=== PATIENT | female | born 1955 | race Caucasian/White ===

== ENCOUNTER 2021-02-14 10:41 | Inpatient (IN) ==
[~2021-02-14 10:41] MED LIST: KETAMINE HCL INJ 50 MG/ML 10 ML VIAL IV ONE; ROCURONIUM BROMIDE 10 MG/ML 5 ML VIAL IV ONE
[2021-02-14] MEDS ORDERED: RAPID SEQUENCE INDUCTION BAG ONE (11:03)
--- NOTE | 2021-02-14 11:11 | Emergency Department Note ---
Impression & Plan Pneumonia due to 2019 novel coronavirus, Pulmonary embolism, Respiratory failure, Acute alteration in mental status, Acute CVA (cerebrovascular accident), Acute non-ST elevation myocardial infarction (NSTEMI) ED Provider Note NAME: MAMADOU ROSE AGE: 65 SEX: F : 1955 ARRIVES VIA: Ambulance INFORMANT: Patient, EMS ED PROVIDER(S): Scar Allen DO CHIEF COMPLAINT: Shortness of breath HPI: The patient is a 65-year-old female who presented to emergency department via EMS for an evaluation of shortness of breath. The patient resides currently at home with other people that are positive for COVID-19. The patient was noted to have very low oxygen saturation prior to arrival. At this time the patient complains of a cough as well as shortness of breath but she is very obtunded and confused. She does not appear to be acting appropriately or answering questions appropriately. She is denying any chest pain or leg swelling. It sounds though her symptoms have been worsening over the course the last 2 weeks although it is difficult to ascertain this for sure. History was limited secondary to the patient's confusion. Additional history was obtained from the patient's son and [id number] when they arrived at the emergency department. They state that the patient herself did have Covid approximately 4 weeks ago but she responded well and recovered from this. She is not vaccinated. The patient did have confusion over the last few days. She did not go to work last evening and they are unsure why. This is what prompted them to check on her. She has been confused and lost her way at work a couple days ago. A coworker for the patient told the son this. She had been complaining of joint aches however. She does have a history of pneumonia as a child. She has no tobacco or alcohol history. ROS: See above HPI for pertinent positives & negatives. A total of 10 systems reviewed and were otherwise negative. PAST MEDICAL HISTORY: See Below PAST SURGICAL HISTORY: See Below FAMILY HISTORY: See Below SOCIAL HISTORY: See Below HOME MEDICATIONS: See Below ALLERGIES: See Below VITALS: See Below PHYSICAL EXAMINATION: GENERAL: The patient is awake and looking around the room. She answers questions slowly and sometimes inappropriately. EYES: The conjunctivae are clear. The pupils are round and reactive. EARS, NOSE, MOUTH AND THROAT: The nose is without any evidence of any deformity. NECK: The neck is nontender and supple. RESPIRATORY: Severely diminished breath sounds are noted throughout. There is significant conversational dyspnea and tachypnea. CARDIOVASCULAR: Tachycardic rate with regular rhythm was noted. There is no definite murmur. GASTROINTESTINAL: The abdomen is soft. Abdomen is nontender. MUSCULOSKELETAL/EXTREMITIES: There is no evidence of gross deformity full range of motion is noted in the hips and shoulders. SKIN: Skin was cool and mottled. Pedal edema was noted bilaterally. NEUROLOGIC: Patient is awake and oriented to person place but not time or situation. MEDICAL DECISION MAKING: The patient is a 65-year-old female who presented to emergency department for an evaluation of difficulty breathing. The patient was obtunded and appeared at times confused. This would be a huge change in the patient's mental status compared to baseline. The patient was stabilized but required endotracheal ovation. Her oxygen saturation was very low and her respiratory status continued to worsen. The patient was found to have an abnormal EKG which could be consistent with an acute ischemic change with a bumped troponin. I discussed her case with interventional cardiology. At this time I feel the patient's cardiac findings could be secondary to her underlying pulmonary status. Ultimately she was placed on heparin. The patient was found to have bilateral pulmonary embolism. She was covered with antibiotics but was found to have a positive Covid swab. I discussed the patient's laboratory and radiographic studies with her family members. I also discussed her case with the on-call [facility] hospitalist group. I also consulted neurology to determine the proper timing for anticoagulation. At this time the patient requires anticoagulation because of the pulmonary embolism and her clot burden. She was found to have signs of right heart strain. She had an echocardiogram. The patient was also discussed with the [facility]. Triage Nursing notes reviewed. Prior medical records reviewed Vital Signs: reviewed and remarkable for hypoxia. Differential diagnosis: Reactive airway disease, pneumonia, pneumothorax, COPD, CHF, infections, cardiac ischemia, pulmonary embolism, musculoskeletal, gastrointestinal, as well as other pathologies. ER treatment provided: See below Diagnostics interpreted by me: ECG: EKG was obtained in the emergency department. My interpretation is sinus tachycardia 104 bpm. There was no ectopy. Significant high lateral and inferior ST segment abnormalities were noted. There was anterior T wave inversions noted. Significant ischemic changes were noted. No previous tracing was available. Cardiac Monitoring: An order was placed for continuous cardiac monitoring. The monitor shows a rate of 93 bpm with sinus rhythm. Laboratory studies: As stated above and show below. Imaging studies: See below Consultation(s): I discussed this case with Dr. Storey who is on for interventional cardiology. I discussed this case with Dr. Molina. He was available for consultation for neurology. I discussed the patient's radiographic studies with him. He does recommend further neuroimaging including angiography to evaluate the patient's intracranial and carotid vasculature. At this time if anticoagulation is required it would be advisable however following up with repeat CAT scans as indicated to ensure there is no hemorrhagic transformation. I discussed this case with Dr. Luna who is on-call for the [facility] hospitalist group. They will evaluate the patient in the emergency department. I discussed this case with Dr. Cabrera who is on-call for the [facility]. ED COURSE: Procedures: Endotracheal Intubation Indication respiratory failure. The patient was on 100% oxygen via NRB prior to the procedure. Suction, airway equipment, RSI drugs, respiratory equipment, and appropriate personnel were prepared prior to the initiation of the procedure. A time out was taken. Induction was performed with ketamine and rocuronium After observing the clinical benefit of the medications, the airway was easily visualized utilizing a glide scope. A 7.5 size ETT tube was placed atraumatically to 24 cm using standard technique. The cuff inflated without signs of malfunction. There were bilateral breath sounds, positive colormetric change, no gastric sounds, a good capnography waveform, and post procedure pulse oximetry was 92%. Post intubation sedation and paralysis was administered using propofol. There were no complications. Critical Care: I have personally spent greater than 75 minutes of critical care time in the direct management of this patient. This includes bedside care, interpretation of diagnostic studies, and testing, discussion with consultants, patient, and family members, and other required patient management activities. This 75 minutes is in excess of all separately billable procedures. Past Med/Surg History Medical History History of pneumonia Social History Smoking Status: Never smoker Hx Alcohol Use: No Hx Substance Use: No Preferred Language: Chinese Communication Ability: Effective Supervisor Fusing Room Required: No Beliefs That Will Affect Care: None Current Living Situation: Spouse Other Information That Helps Us Care for You: No Feels Safe at Home: Yes Safety Concerns: Feels Safe At This Time Assistive Devices: None Allergies Allergies Allergy/AdvReac Type Severity Reaction Status Date / Time No Known Allergies Allergy Verified 02/14/21 12:55 Home Meds Home Medications Medication Instructions Recorded Confirmed No Known Home Medications 02/14/21 02/14/21 Results & Data (ED) Vital Signs Vital Signs - 24 hr 02/14/21 10:30 02/14/21 10:55 02/14/21 11:00 Temperature 36.8 C Temperature Source Oral Pulse Rate 88 105 H 104 H Pulse Rate from SpO2 Sensor 105 H 104 H Pulse Rhythm Regular Respiratory Rate 44 H 30 H 34 H Respiratory Effort / Characteristics Short of Breath Labored Short of Breath Respiratory Depth Shallow Respiratory Pattern Blood Pressure 154/76 H Blood Pressure Mean 102 Blood Pressure Position Semi-fowlers Pulse Oximetry 77 L 90 92 Oxygen Delivery Method Room Air Oxymask Oxygen Flow Rate 8 Fraction of Inspired Oxygen Sepsis Recent Fever Within 48 Hours Yes Sepsis New/Unexplained Change in Mental Status Yes Sepsis Action Taken by Nursing Physician Notified Oxygen Flow Rate - Titration Pulse Oximetry Post Tiitration 02/14/21 11:01 02/14/21 11:10 02/14/21 11:20 Temperature Temperature Source Pulse Rate 104 H 101 H Pulse Rate from SpO2 Sensor 104 H 102 H Pulse Rhythm Respiratory Rate 43 H 17 Respiratory Effort / Characteristics Short of Breath Respiratory Depth Shallow Respiratory Pattern Regular Blood Pressure Blood Pressure Mean Blood Pressure Position Pulse Oximetry 78 L 91 90 Oxygen Delivery Method Oxymask Oxygen Flow Rate 0 Fraction of Inspired Oxygen Sepsis Recent Fever Within 48 Hours Sepsis New/Unexplained Change in Mental Status Sepsis Action Taken by Nursing Oxygen Flow Rate - Titration 8 Pulse Oximetry Post Tiitration 92 02/14/21 11:30 02/14/21 11:35 02/14/21 11:40 Temperature Temperature Source Pulse Rate 103 H 99 H 103 H Pulse Rate from SpO2 Sensor 103 H 99 H 103 H Pulse Rhythm Respiratory Rate 24 27 H 27 H Respiratory Effort / Characteristics Labored Short of Breath Respiratory Depth Respiratory Pattern Blood Pressure 139/72 135/101 H 167/100 H Blood Pressure Mean 94 112 122 Blood Pressure Position Pulse Oximetry 91 94 93 Oxygen Delivery Method Mechanical Vent Oxygen Flow Rate Fraction of Inspired Oxygen Sepsis Recent Fever Within 48 Hours Sepsis New/Unexplained Change in Mental Status Sepsis Action Taken by Nursing Oxygen Flow Rate - Titration Pulse Oximetry Post Tiitration 02/14/21 11:45 02/14/21 11:49 02/14/21 11:50 Temperature Temperature Source Pulse Rate 111 H 114 H 114 H Pulse Rate from SpO2 Sensor 111 H 110 H Pulse Rhythm Respiratory Rate 20 16 25 H Respiratory Effort / Characteristics Respiratory Depth Respiratory Pattern Blood Pressure 192/119 H 186/107 H Blood Pressure Mean 143 133 Blood Pressure Position Pulse Oximetry 85 L 89 L 89 L Oxygen Delivery Method Oxygen Flow Rate Fraction of Inspired Oxygen 100 Sepsis Recent Fever Within 48 Hours Sepsis New/Unexplained Change in Mental Status Sepsis Action Taken by Nursing Oxygen Flow Rate - Titration Pulse Oximetry Post Tiitration 02/14/21 11:55 02/14/21 12:00 02/14/21 12:28 Temperature Temperature Source Pulse Rate 110 H 107 H 119 H Pulse Rate from SpO2 Sensor 111 H 112 H Pulse Rhythm Respiratory Rate 16 20 20 Respiratory Effort / Characteristics Mechanically Ventilated Respiratory Depth Respiratory Pattern Blood Pressure 178/105 H 161/101 H 147/92 H Blood Pressure Mean 129 121 110 Blood Pressure Position Pulse Oximetry 88 L 88 L Oxygen Delivery Method Oxygen Flow Rate Fraction of Inspired Oxygen Sepsis Recent Fever Within 48 Hours Sepsis New/Unexplained Change in Mental Status Sepsis Action Taken by Nursing Oxygen Flow Rate - Titration Pulse Oximetry Post Tiitration 02/14/21 12:30 02/14/21 12:35 02/14/21 12:40 Temperature Temperature Source Pulse Rate 113 H 106 H 102 H Pulse Rate from SpO2 Sensor 106 H 104 H Pulse Rhythm Respiratory Rate 16 18 18 Respiratory Effort / Characteristics Mechanically Ventilated Respiratory Depth Respiratory Pattern Blood Pressure 140/88 109/80 119/79 Blood Pressure Mean 105 89 92 Blood Pressure Position Pulse Oximetry 92 90 Oxygen Delivery Method Oxygen Flow Rate Fraction of Inspired Oxygen Sepsis Recent Fever Within 48 Hours Sepsis New/Unexplained Change in Mental Status Sepsis Action Taken by Nursing Oxygen Flow Rate - Titration Pulse Oximetry Post Tiitration 02/14/21 12:45 02/14/21 12:55 02/14/21 13:00 Temperature Temperature Source Pulse Rate 105 H 108 H 109 H Pulse Rate from SpO2 Sensor 105 H 108 H 109 H Pulse Rhythm Respiratory Rate 18 18 18 Respiratory Effort / Characteristics Mechanically Ventilated Respiratory Depth Respiratory Pattern Blood Pressure 126/48 L 120/93 141/97 H Blood Pressure Mean 74 102 111 Blood Pressure Position Pulse Oximetry 89 L 93 94 Oxygen Delivery Method Oxygen Flow Rate Fraction of Inspired Oxygen Sepsis Recent Fever Within 48 Hours Sepsis New/Unexplained Change in Mental Status Sepsis Action Taken by Nursing Oxygen Flow Rate - Titration Pulse Oximetry Post Tiitration 02/14/21 13:05 02/14/21 13:10 02/14/21 13:15 Temperature Temperature Source Pulse Rate 109 H 108 H 110 H Pulse Rate from SpO2 Sensor 109 H 108 H 110 H Pulse Rhythm Respiratory Rate 18 18 18 Respiratory Effort / Characteristics Respiratory Depth Respiratory Pattern Blood Pressure 136/89 139/86 163/87 H Blood Pressure Mean 104 103 112 Blood Pressure Position Pulse Oximetry 94 94 95 Oxygen Delivery Method Oxygen Flow Rate Fraction of Inspired Oxygen Sepsis Recent Fever Within 48 Hours Sepsis New/Unexplained Change in Mental Status Sepsis Action Taken by Nursing Oxygen Flow Rate - Titration Pulse Oximetry Post Tiitration 02/14/21 13:20 02/14/21 13:25 02/14/21 13:30 Temperature Temperature Source Pulse Rate 113 H 112 H 108 H Pulse Rate from SpO2 Sensor 113 H 112 H 108 H Pulse Rhythm Respiratory Rate 26 H 14 18 Respiratory Effort / Characteristics Mechanically Ventilated Respiratory Depth Respiratory Pattern Blood Pressure 154/99 H 141/89 H 120/79 Blood Pressure Mean 117 106 92 Blood Pressure Position Pulse Oximetry 94 94 94 Oxygen Delivery Method Oxygen Flow Rate Fraction of Inspired Oxygen Sepsis Recent Fever Within 48 Hours Sepsis New/Unexplained Change in Mental Status Sepsis Action Taken by Nursing Oxygen Flow Rate - Titration Pulse Oximetry Post Tiitration 02/14/21 13:32 02/14/21 13:35 02/14/21 13:40 Temperature Temperature Source Pulse Rate 105 H 110 H 110 H Pulse Rate from SpO2 Sensor 109 H 111 H Pulse Rhythm Respiratory Rate 18 15 18 Respiratory Effort / Characteristics Respiratory Depth Respiratory Pattern Blood Pressure 125/84 Blood Pressure Mean 97 Blood Pressure Position Pulse Oximetry 93 93 94 Oxygen Delivery Method Oxygen Flow Rate Fraction of Inspired Oxygen 100 Sepsis Recent Fever Within 48 Hours Sepsis New/Unexplained Change in Mental Status Sepsis Action Taken by Nursing Oxygen Flow Rate - Titration Pulse Oximetry Post Tiitration 02/14/21 13:45 02/14/21 13:50 02/14/21 13:55 Temperature Temperature Source Pulse Rate 110 H 112 H 113 H Pulse Rate from SpO2 Sensor 110 H 112 H 113 H Pulse Rhythm Respiratory Rate 18 18 18 Respiratory Effort / Characteristics Respiratory Depth Respiratory Pattern Blood Pressure 117/84 127/86 124/86 Blood Pressure Mean 95 99 98 Blood Pressure Position Pulse Oximetry 94 94 94 Oxygen Delivery Method Oxygen Flow Rate Fraction of Inspired Oxygen Sepsis Recent Fever Within 48 Hours Sepsis New/Unexplained Change in Mental Status Sepsis Action Taken by Nursing Oxygen Flow Rate - Titration Pulse Oximetry Post Tiitration 02/14/21 14:00 Temperature Temperature Source Pulse Rate 114 H Pulse Rate from SpO2 Sensor 114 H Pulse Rhythm Respiratory Rate 18 Respiratory Effort / Characteristics Respiratory Depth Respiratory Pattern Blood Pressure 122/88 Blood Pressure Mean 99 Blood Pressure Position Pulse Oximetry 94 Oxygen Delivery Method Oxygen Flow Rate Fraction of Inspired Oxygen Sepsis Recent Fever Within 48 Hours Sepsis New/Unexplained Change in Mental Status Sepsis Action Taken by Nursing Oxygen Flow Rate - Titration Pulse Oximetry Post Tiitration Home Medications Current Medication List: was personally reviewed by me Laboratory Data Attestation: I reviewed the patient's lab results. Result diagrams: 02/14/21 11:22 02/14/21 17:06 Lab Results 02/14/21 02/14/21 02/14/21 Range/Units 10:55 11:22 11:22 WBC 15.88 H (4.8-10.8) K/uL RBC 4.94 (4.2-5.4) M/uL Hgb 14.5 (12.0-16.0) g/dL Hct 42.7 (37-47) % MCV 86.4 (80-100) fL MCH 29.4 (25-34) pg MCHC 34.0 (32-36) g/dL RDW Std Deviation 40.9 (36.4-46.3) fL RDW Coeff of Ayde 12.8 (11.5-14.5) % Plt Count 291 (130-400) K/uL MPV 10.6 H (7.4-10.4) fL Immature Gran % (Auto) 0.9 % Neut % (Auto) 79.4 % Lymph % (Auto) 11.3 % [place] % (Auto) 8.2 % Eos % (Auto) 0.0 % Baso % (Auto) 0.2 % Neut # (Auto) 12.61 H (1.4-6.5) K/uL Lymph # (Auto) 1.80 (1.2-3.4) K/uL [place] # (Auto) 1.30 H (0.11-0.59) K/uL Eos # (Auto) 0.00 (0-0.5) K/uL Baso # (Auto) 0.03 (0-0.2) K/uL Immature Gran # (Auto) 0.14 H (0.00-0.02) K/uL PT 13.0 H (9.0-12.0) Seconds INR 1.3 H (0.9-1.1) APTT 29.8 (21.0-31.0) Seconds PTT Ratio 1.1 D-Dimer 23788 H* (0-500) ug/L FEU VBG pH (7.36-7.41) VBG pCO2 (38-50) mmHg VBG pO2 mmHg VBG HCO3 mmol/L VBG O2 Saturation % VBG Base Excess mEq/L Barometric Pressure mm/Hg Sodium (136-145) mmol/L Potassium (3.5-5.1) mmol/L Chloride (98-107) mmol/L Carbon Dioxide (21-32) mmol/L Anion Gap (3-11) BUN (7-18) mg/dl Creatinine (0.6-1.2) mg/dl Est Cr Clr Drug Dosing Est GFR ( Amer) ml/min Est GFR (Non-Af Amer) ml/min BUN/Creatinine Ratio (10-20) Glucose (70-99) mg/dl Lactate (0.4-2.0) mmol/L Calcium (8.5-10.1) mg/dl Magnesium (1.8-2.4) mg/dl Total Bilirubin (0.2-1) mg/dl AST (15-37) U/L ALT (12-78) Alkaline Phosphatase (45-117) U/L Total Creatine Kinase (26-192) U/L Troponin I (0-0.045) ng/ml C-Reactive Protein (0-0.29) mg/dl NT-Pro-B Natriuret Pep (0-900) pg/ml Total Protein (6.4-8.2) gm/dl Albumin (3.4-5.0) gm/dl Globulin (2.5-4.0) gm/dl Albumin/Globulin Ratio (0.9-2) Procalcitonin (0-0.5) ng/ml Urine Color Urine Appearance (Clear) Urine pH (4.5-7.5) Ur Specific Christopher (1.000-1.030) Urine Protein (Negative) Urine Glucose (UA) (Negative) Urine Ketones (Negative) Urine Blood (Negative) Urine Nitrite (Negative) Urine Bilirubin (Negative) Urine Urobilinogen (Negative) Ur Leukocyte Esterase (Negative) Urine WBC (Auto) (0-5) /hpf Urine RBC (Auto) (0-4) /hpf U Hyaline Cast (Auto) (0-5) /lpf U Epithel Cells (Auto) (0-5) /lpf Urine Bacteria (Auto) (Negative) Granular Casts (0) /lpf Urine Yeast Adenovirus (PCR) Not Detected (NotDetected) B. pertussis DNA (PCR) Not Detected (NotDetected) B.parapertussis DNA PCR Not Detected (NotDetected) C. pneumoniae DNA (PCR) Not Detected (NotDetected) Coronavirus OC43 (PCR) Not Detected (NotDetected) Coronavirus HKU1 (PCR) Not Detected (NotDetected) Coronavirus 229E (PCR) Not Detected (NotDetected) SARS-CoV-2 (PCR) DETECTED A* (NotDetected) Coronavirus NL63 (PCR) Not Detected (NotDetected) Human Metapneumovir PCR Not Detected (NotDetected) Influenza Type A (PCR) Not Detected (NotDetected) Influenza Type B (PCR) Not Detected (NotDetected) M. pneumoniae (PCR) Not Detected (NotDetected) Parainfluenza 1 (PCR) Not Detected (NotDetected) Parainfluenza 2 (PCR) Not Detected (NotDetected) Parainfluenza 3 (PCR) Not Detected (NotDetected) Parainfluenza 4 (PCR) Not Detected (NotDetected) RSV (PCR) Not Detected (NotDetected) Entero/Rhino (PCR) Not Detected (NotDetected) 02/14/21 02/14/21 02/14/21 Range/Units 11:22 11:22 11:22 WBC (4.8-10.8) K/uL RBC (4.2-5.4) M/uL Hgb (12.0-16.0) g/dL Hct (37-47) % MCV (80-100) fL MCH (25-34) pg MCHC (32-36) g/dL RDW Std Deviation (36.4-46.3) fL RDW Coeff of Ayde (11.5-14.5) % Plt Count (130-400) K/uL MPV (7.4-10.4) fL Immature Gran % (Auto) % Neut % (Auto) % Lymph % (Auto) % [place] % (Auto) % Eos % (Auto) % Baso % (Auto) % Neut # (Auto) (1.4-6.5) K/uL Lymph # (Auto) (1.2-3.4) K/uL [place] # (Auto) (0.11-0.59) K/uL Eos # (Auto) (0-0.5) K/uL Baso # (Auto) (0-0.2) K/uL Immature Gran # (Auto) (0.00-0.02) K/uL PT (9.0-12.0) Seconds INR (0.9-1.1) APTT (21.0-31.0) Seconds PTT Ratio D-Dimer (0-500) ug/L FEU VBG pH (7.36-7.41) VBG pCO2 (38-50) mmHg VBG pO2 mmHg VBG HCO3 mmol/L VBG O2 Saturation % VBG Base Excess mEq/L Barometric Pressure mm/Hg Sodium 137 (136-145) mmol/L Potassium 3.1 L (3.5-5.1) mmol/L Chloride 97 L (98-107) mmol/L Carbon Dioxide 27 (21-32) mmol/L Anion Gap 13.0 H (3-11) BUN 25 H (7-18) mg/dl Creatinine 1.56 H (0.6-1.2) mg/dl Est Cr Clr Drug Dosing Not Reportable Est GFR ( Amer) 40.6 ml/min Est GFR (Non-Af Amer) 35.0 ml/min BUN/Creatinine Ratio 15.9 (10-20) Glucose 151 H (70-99) mg/dl Lactate 4.0 H* (0.4-2.0) mmol/L Calcium 8.7 (8.5-10.1) mg/dl Magnesium 2.2 (1.8-2.4) mg/dl Total Bilirubin 1.8 H (0.2-1) mg/dl AST 164 H (15-37) U/L ALT 132 H (12-78) Alkaline Phosphatase 108 (45-117) U/L Total Creatine Kinase 825 H (26-192) U/L Troponin I 6.570 H* (0-0.045) ng/ml C-Reactive Protein 17.40 H (0-0.29) mg/dl NT-Pro-B Natriuret Pep 9133 H (0-900) pg/ml Total Protein 7.3 (6.4-8.2) gm/dl Albumin 2.6 L (3.4-5.0) gm/dl Globulin 4.7 H (2.5-4.0) gm/dl Albumin/Globulin Ratio 0.6 L (0.9-2) Procalcitonin 0.91 H (0-0.5) ng/ml Urine Color Urine Appearance (Clear) Urine pH (4.5-7.5) Ur Specific Christopher (1.000-1.030) Urine Protein (Negative) Urine Glucose (UA) (Negative) Urine Ketones (Negative) Urine Blood (Negative) Urine Nitrite (Negative) Urine Bilirubin (Negative) Urine Urobilinogen (Negative) Ur Leukocyte Esterase (Negative) Urine WBC (Auto) (0-5) /hpf Urine RBC (Auto) (0-4) /hpf U Hyaline Cast (Auto) (0-5) /lpf U Epithel Cells (Auto) (0-5) /lpf Urine Bacteria (Auto) (Negative) Granular Casts (0) /lpf Urine Yeast Adenovirus (PCR) (NotDetected) B. pertussis DNA (PCR) (NotDetected) B.parapertussis DNA PCR (NotDetected) C. pneumoniae DNA (PCR) (NotDetected) Coronavirus OC43 (PCR) (NotDetected) Coronavirus HKU1 (PCR) (NotDetected) Coronavirus 229E (PCR) (NotDetected) SARS-CoV-2 (PCR) (NotDetected) Coronavirus NL63 (PCR) (NotDetected) Human Metapneumovir PCR (NotDetected) Influenza Type A (PCR) (NotDetected) Influenza Type B (PCR) (NotDetected) M. pneumoniae (PCR) (NotDetected) Parainfluenza 1 (PCR) (NotDetected) Parainfluenza 2 (PCR) (NotDetected) Parainfluenza 3 (PCR) (NotDetected) Parainfluenza 4 (PCR) (NotDetected) RSV (PCR) (NotDetected) Entero/Rhino (PCR) (NotDetected) 02/14/21 02/14/21 02/14/21 Range/Units 11:22 13:30 13:38 WBC (4.8-10.8) K/uL RBC (4.2-5.4) M/uL Hgb (12.0-16.0) g/dL Hct (37-47) % MCV (80-100) fL MCH (25-34) pg MCHC (32-36) g/dL RDW Std Deviation (36.4-46.3) fL RDW Coeff of Ayde (11.5-14.5) % Plt Count (130-400) K/uL MPV (7.4-10.4) fL Immature Gran % (Auto) % Neut % (Auto) % Lymph % (Auto) % [place] % (Auto) % Eos % (Auto) % Baso % (Auto) % Neut # (Auto) (1.4-6.5) K/uL Lymph # (Auto) (1.2-3.4) K/uL [place] # (Auto) (0.11-0.59) K/uL Eos # (Auto) (0-0.5) K/uL Baso # (Auto) (0-0.2) K/uL Immature Gran # (Auto) (0.00-0.02) K/uL PT (9.0-12.0) Seconds INR (0.9-1.1) APTT (21.0-31.0) Seconds PTT Ratio D-Dimer (0-500) ug/L FEU VBG pH 7.46 H (7.36-7.41) VBG pCO2 41 (38-50) mmHg VBG pO2 26 mmHg VBG HCO3 28 mmol/L VBG O2 Saturation < 60.0 % VBG Base Excess 3.9 mEq/L Barometric Pressure 736.6 mm/Hg Sodium (136-145) mmol/L Potassium (3.5-5.1) mmol/L Chloride (98-107) mmol/L Carbon Dioxide (21-32) mmol/L Anion Gap (3-11) BUN (7-18) mg/dl Creatinine (0.6-1.2) mg/dl Est Cr Clr Drug Dosing Est GFR ( Amer) ml/min Est GFR (Non-Af Amer) ml/min BUN/Creatinine Ratio (10-20) Glucose (70-99) mg/dl Lactate 2.3 H* (0.4-2.0) mmol/L Calcium (8.5-10.1) mg/dl Magnesium (1.8-2.4) mg/dl Total Bilirubin (0.2-1) mg/dl AST (15-37) U/L ALT (12-78) Alkaline Phosphatase (45-117) U/L Total Creatine Kinase (26-192) U/L Troponin I (0-0.045) ng/ml C-Reactive Protein (0-0.29) mg/dl NT-Pro-B Natriuret Pep (0-900) pg/ml Total Protein (6.4-8.2) gm/dl Albumin (3.4-5.0) gm/dl Globulin (2.5-4.0) gm/dl Albumin/Globulin Ratio (0.9-2) Procalcitonin (0-0.5) ng/ml Urine Color Dark Yellow Urine Appearance Cloudy A (Clear) Urine pH 5.0 (4.5-7.5) Ur Specific Christopher > 1.045 H (1.000-1.030) Urine Protein 2+ H (Negative) Urine Glucose (UA) Negative (Negative) Urine Ketones Trace H (Negative) Urine Blood 1+ H (Negative) Urine Nitrite Negative (Negative) Urine Bilirubin 2+ H (Negative) Urine Urobilinogen Negative (Negative) Ur Leukocyte Esterase Negative (Negative) Urine WBC (Auto) 5-10 H (0-5) /hpf Urine RBC (Auto) 0-4 (0-4) /hpf U Hyaline Cast (Auto) >30 H (0-5) /lpf U Epithel Cells (Auto) >30 H (0-5) /lpf Urine Bacteria (Auto) Negative (Negative) Granular Casts 10-20 H (0) /lpf Urine Yeast Not Reportable Adenovirus (PCR) (NotDetected) B. pertussis DNA (PCR) (NotDetected) B.parapertussis DNA PCR (NotDetected) C. pneumoniae DNA (PCR) (NotDetected) Coronavirus OC43 (PCR) (NotDetected) Coronavirus HKU1 (PCR) (NotDetected) Coronavirus 229E (PCR) (NotDetected) SARS-CoV-2 (PCR) (NotDetected) Coronavirus NL63 (PCR) (NotDetected) Human Metapneumovir PCR (NotDetected) Influenza Type A (PCR) (NotDetected) Influenza Type B (PCR) (NotDetected) M. pneumoniae (PCR) (NotDetected) Parainfluenza 1 (PCR) (NotDetected) Parainfluenza 2 (PCR) (NotDetected) Parainfluenza 3 (PCR) (NotDetected) Parainfluenza 4 (PCR) (NotDetected) RSV (PCR) (NotDetected) Entero/Rhino (PCR) (NotDetected) Administered Medications Propofol (Diprivan) 1,000 mg in 100 mls @ 13.59 mls/hr IV .Q7H22M [facility]; Protocol Stop: 02/17/21 11:44 Last Admin: 02/14/21 18:21 Dose: Not Given Documented by: [id number] Titration: 02/14/21 16:45 Dose: 15 mcg/kg/min, 13.6 mls/hr Documented by: [id number] Admin: 02/14/21 16:28 Dose: 30 mcg/kg/min, 27.2 mls/hr Documented by: [id number] Cosigned by: [id number] Titration: 02/14/21 16:28 Dose: 30 mcg/kg/min, 27.2 mls/hr Documented by: [id number] Cosigned by: [id number] Titration: 02/14/21 16:28 Dose: 30 mcg/kg/min, 27.2 mls/hr Documented by: [id number] Cosigned by: [id number] Admin: 02/14/21 11:42 Dose: 20 mcg/kg/min, 18.1 mls/hr Documented by: [id number] Cosigned by: [id number] Heparin Sodium/Dextrose (Heparin Sodium/Dextrose) 25,000 units in 500 mls @ 31 mls/hr IV .Q16H8M [facility]; Protocol Stop: 03/16/21 13:29 Last Admin: 02/14/21 13:52 Dose: 1,550 units/hr, 31 mls/hr Documented by: [id number] Cosigned by: [id number] Fentanyl Citrate (Fentanyl Citrate) 2,500 mcg in 250 mls @ 2.5 mls/hr IV .Q96H [facility]; Protocol Stop: 02/28/21 16:13 Last Titration: 02/14/21 17:16 Dose: 125 mcg/hr, 12.5 mls/hr Documented by: [id number] Cosigned by: [id number] Admin: 02/14/21 16:27 Dose: 25 mcg/hr, 2.5 mls/hr Documented by: [id number] Cosigned by: [id number] Dexamethasone 6 mg/ Syringe 1.5 mls @ 1 mls/min IV Q24H [facility] Stop: 03/16/21 16:59 Last Admin: 02/14/21 17:31 Dose: 1 mls/min Documented by: [id number] Piperacillin Sod/Tazobactam (Sod 4.5 gm/ Dextrose) 120 mls @ 30 mls/hr IV Q8H [facility]; Protocol Stop: 02/16/21 09:59 Last Admin: 02/14/21 17:31 Dose: 30 mls/hr Documented by: [id number] Discontinued Medications Dexamethasone Sodium Phosphate (DexamethasonePf 10 Mg/Ml Vial) 10 mg IV NOW ONE Stop: 02/14/21 13:07 Last Admin: 02/14/21 13:55 Dose: 10 mg Documented by: [id number] Heparin Sodium (Porcine) (Heparin Sod (Porcine) 1000 Unit/Ml) 1 units IV NOW ONE Stop: 02/14/21 13:24 Last Admin: 02/14/21 13:49 Dose: 7,000 units Documented by: [id number] Cosigned by: [id number] Heparin Sodium/Dextrose (Heparin Iv Adult Wt-Based Standard With Bolus Protocol) 1 ea IV NOW STA; Protocol Stop: 02/14/21 13:09 Last Admin: 02/14/21 13:58 Dose: 1 ea Documented by: [id number] Piperacillin Sod/Tazobactam Sod (Zosyn) 4.5 gm in 120 mls @ 240 mls/hr IV NOW ONE Stop: 02/14/21 12:09 Last Infusion: 02/14/21 13:28 Dose: 0 mls/hr Documented by: [id number] Admin: 02/14/21 12:37 Dose: 240 mls/hr Documented by: [id number] Sodium Chloride (Nss 1000ml) 1,000 mls @ 999 mls/hr IV .Q1H1M ONE Stop: 02/14/21 12:59 Last Infusion: 02/14/21 13:28 Dose: 0 mls/hr Documented by: [id number] Admin: 02/14/21 11:59 Dose: 999 mls/hr Documented by: [id number] Potassium Chloride (K Corwin / Wtr) 10 meq in 100 mls @ 100 mls/hr IV ONE ONE; Protocol Stop: 02/14/21 12:58 Last Infusion: 02/14/21 13:57 Dose: 0 mls/hr Documented by: [id number] Admin: 02/14/21 12:57 Dose: 100 mls/hr Documented by: [id number] Ioversol (Optiray 320 125ml) 120 ml IV ONCE ONE Stop: 02/14/21 12:30 Last Admin: 02/14/21 12:29 Dose: 120 ml Documented by: [id number] Miscellaneous (Rapid Sequence Induction Bag) Confirm Administered Dose 1 ea .ROUTE .STK-MED ONE Stop: 02/14/21 11:04 Last Admin: 02/14/21 11:34 Dose: 1 ea Documented by: [id number] Miscellaneous (Stat Iv Infusion Titration Per Protocol) 1 ea N/A NOW STA Stop: 02/14/21 15:43 Last Admin: 02/14/21 16:27 Dose: 1 ea Documented by: [id number] Propofol (Propofol Iv Emulsion 10 Mg/Ml 100 Ml Vial) Confirm Administered Dose 1,000 mg IV .STK-MED ONE Stop: 02/14/21 11:41 Last Admin: 02/14/21 11:57 Dose: Not Given Documented by: [id number] Imaging Data Radiologist's Impression: Abdomen/Pelvis CT 02/14/21 11:40 CT angio chest PE protocol, CT abd pelvis IV con only CT DOSE: 3553.28 mGy.cm HISTORY: 65 years-old Female with PE. She shortness of breath with altered mental status and generalized abdominal pain TECHNIQUE: Multiple CTA images of the chest were obtained after the intravenous administration of 120 ml Optiray. Coronal and sagittal MIPS were obtained from the axial data set and were submitted for review. All measurements were obtained according to NASCET criteria. CT abdomen and pelvis with IV contrast only was also obtained. A dose lowering technique was utilized adhering to the principles of ALARA. COMPARISON: Chest radiograph of same day FINDINGS: CTA: The heart is upper limits of normal in size. Normal thoracic aorta. There is a large amount of bilateral lobar, segmental and subsegmental pulmonary emboli. Straightening of the intraventricular septum. CT CHEST: No thyroid nodule or pathologically enlarged lymph nodes identified. No pneumothorax or definite pleural effusion. Multifocal multilobar distribution of subpleural predominant groundglass and alveolar opacities are noted within a mid to lower lung zone predominant distribution. There are associated air bronchograms. No suspicious pulmonary nodules or masses identified. Endotracheal tube terminates within the right mainstem bronchus. Unremarkable soft tissues. No acute fracture. Degenerative changes of the shoulders and spine. CT ABDOMEN/PELVIS: No pneumatosis or pneumoperitoneum. Limited study secondary to upper extremity positioning. Heterogeneity of the spleen may be secondary to phase of contrast imaging. Mildly atrophic pancreas. Cholelithiasis without definite CT evidence of acute cholecystitis. Unremarkable adrenal glands and liver. Bilateral renal sinus cysts. Symmetric enhancement of the kidneys. No hydronephrosis. A Pena catheter is noted within a decompressed urinary bladder. Enhancing 3.2 cm lesion involving the left aspect of the uterine fundus is suggestive of a probable fibroid. Aorta and IVC are unremarkable. No adenopathy. No bowel obstruction or bowel wall thickening. Normal appendix. Unremarkable soft tissues. Degenerative changes of the spine, pelvis and hips. 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 IMPRESSION: 1. The endotracheal tube terminates within the right mainstem bronchus. Retract ion with follow-up chest radiograph recommended. 2. Extensive bilateral pulmonary emboli with right heart strain. 3. Extensive bilateral subpleural predominant groundglass and alveolar opacities compatible with viral pneumonia. 4. No bowel obstruction or bowel wall thickening. 5. Cholelithiasis. 6. Additional findings as above. ACT 112: Negative or not required by law. The above report was generated using voice recognition software. It may contain grammatical, syntax or spelling errors. Electronically signed by: Jake Skelton M.D. 02/14/2021 1:05 PM Chest CTA 02/14/21 11:40 CT angio chest PE protocol, CT abd pelvis IV con only CT DOSE: 3553.28 mGy.cm HISTORY: 65 years-old Female with PE. She shortness of breath with altered mental status and generalized abdominal pain TECHNIQUE: Multiple CTA images of the chest were obtained after the intravenous administration of 120 ml Optiray. Coronal and sagittal MIPS were obtained from the axial data set and were submitted for review. All measurements were obtained according to NASCET criteria. CT abdomen and pelvis with IV contrast only was also obtained. A dose lowering technique was utilized adhering to the principles of ALARA. COMPARISON: Chest radiograph of same day FINDINGS: CTA: The heart is upper limits of normal in size. Normal thoracic aorta. There is a large amount of bilateral lobar, segmental and subsegmental pulmonary emboli. Straightening of the intraventricular septum. CT CHEST: No thyroid nodule or pathologically enlarged lymph nodes identified. No pneumothorax or definite pleural effusion. Multifocal multilobar distribution of subpleural predominant groundglass and alveolar opacities are noted within a mid to lower lung zone predominant distribution. There are associated air bronchograms. No suspicious pulmonary nodules or masses identified. Endotracheal tube terminates within the right mainstem bronchus. Unremarkable soft tissues. No acute fracture. Degenerative changes of the shoulders and spine. CT ABDOMEN/PELVIS: No pneumatosis or pneumoperitoneum. Limited study secondary to upper extremity positioning. Heterogeneity of the spleen may be secondary to phase of contrast imaging. Mildly atrophic pancreas. Cholelithiasis without definite CT evidence of acute cholecystitis. Unremarkable adrenal glands and liver. Bilateral renal sinus cysts. Symmetric enhancement of the kidneys. No hydronephrosis. A Pena catheter is noted within a decompressed urinary bladder. Enhancing 3.2 cm lesion involving the left aspect of the uterine fundus is suggestive of a probable fibroid. Aorta and IVC are unremarkable. No adenopathy. No bowel obstruction or bowel wall thickening. Normal appendix. Unremarkable soft tissues. Degenerative changes of the spine, pelvis and hips. 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 IMPRESSION: 1. The endotracheal tube terminates within the right mainstem bronchus. Re traction with follow-up chest radiograph recommended. 2. Extensive bilateral pulmonary emboli with right heart strain. 3. Extensive bilateral subpleural predominant groundglass and alveolar opacities compatible with viral pneumonia. 4. No bowel obstruction or bowel wall thickening. 5. Cholelithiasis. 6. Additional findings as above. ACT 112: Negative or not required by law. The above report was generated using voice recognition software. It may contain grammatical, syntax or spelling errors. Electronically signed by: Jake Skelton M.D. 02/14/2021 1:[address] 02/14/21 11:40 CT head/brain wo con CLINICAL HISTORY: 65 years-old Female with AMS. Acutely altered mental status with pneumonia TECHNIQUE: Multiple axial CT images of the head were obtained without contrast. A dose lowering technique was utilized adhering to the principles of ALARA. COMPARISON: None. FINDINGS: No acute intracranial hemorrhage, midline shift, hydrocephalus, or abnormal extra-axial collection. There is a 2.4 x 1.6 cm ill-defined area of decreased attenuation involving the right frontal lobe chin radiata, anterior limb of the right internal capsule, right caudate nucleus and superior lentiform nucleus. Ill-defined hypodense focus involves the mid to inferior posterior aspect of the left cerebellar hemisphere. White matter hypodensities suggest chronic microvascular ischemic disease. The calvarium is intact. Mastoid air cells are clear. Endotracheal tube is noted with secretions in the nasopharyngeal airway. Mild polypoid because of thickening of the left maxillary sinus. Unremarkable orbits and soft tissues. IMPRESSION: 1. No acute intracranial hemorrhage or midline shift. 2. 2.4 cm acute versus subacute appearing infarct is noted within the right frontal periventricular distribution involving the adjacent basal ganglia and internal capsule. 3. Age-indeterminate infarct of the mid to inferior left cerebellar hemisphere. ACT 112: Negative or not required by law. The above report was generated using voice recognition software. It may contain grammatical, syntax or spelling errors. Electronically signed by: Jake Skelton M.D. 02/14/2021 12:49 PM Chest X-Ray 02/14/21 12:02 XR chest 1V portable HISTORY: 65 years-old Female RSI acute respiratory failure COMPARISON: CTA chest of same day TECHNIQUE: Portable AP view of the chest FINDINGS: Cardiac silhouette is upper limits of normal in size. No pneumothorax or pleural effusion. Multifocal subpleural predominant bilateral mixed interstitial and alveolar opacities are noted within a mid to lower lung zone prominent distribution. Endotracheal tube overlies the midline, 5 mm superior to the xander. Bones appear grossly intact. IMPRESSION: 1. Endotracheal tube terminates less than 1 cm superior to the xander. Repositioning with follow-up imaging is needed. 2. Multifocal bilateral airspace opacities compatible with viral pneumonia. ACT 112: Negative or not required by law. The above report was generated using voice recognition software. It may contain grammatical, syntax or spelling errors. Electronically signed by: Jake Skelton M.D. 02/14/2021 12:43 PM Chest X-Ray 02/14/21 13:08 XR chest 1V portable HISTORY: 65 years-old Female ETT pulled back acute respiratory failure COMPARISON: Chest radiograph of same day TECHNIQUE: Portable AP view of the chest FINDINGS: Endotracheal tube overlies the midline, 2.5 cm superior to the xander. C enteric tube has been placed which courses below the diaphragm outside the [id number]. Ardiomediastinal and hilar silhouettes are unchanged. Interstitial coarsening with extensive bilateral airspace opacities redemonstrated. No pneumothorax or large pleural effusion. No acute fracture. IMPRESSION: 1. Satisfactory positioning of the endotracheal and enteric tubes. 2. Extensive bilateral airspace opacities redemonstrated compatible with viral pneumonia. ACT 112: Negative or not required by law. The above report was generated using voice recognition software. It may contain grammatical, syntax or spelling errors. Electronically signed by: Jake Skelton M.D. 02/14/2021 2:01 PM Discharge Plan Visit Data Chief Complaint: Shortness of Breath/Dyspnea Stated Complaint: weakness ED Provider: Scar Allen Discharge Problem: Pneumonia due to 2019 novel coronavirus, Pulmonary embolism, Respiratory failure, Acute alteration in mental status, Acute CVA (cerebrovascular accid ent), Acute non-ST elevation myocardial infarction (NSTEMI) Patient Disposition: Admitted As Inpatient Discharge Instructions Interventions: ED Discharge Assessment Last Done: 02/14/21 15:48 Discharge Problem: Pulmonary embolism Qualifiers: Pulmonary embolism type: unspecified Chronicity: acute Acute cor pulmonale presence: unspecified Qualified Code(s): I26.99 - Other pulmonary embolism without acute cor pulmonale Respiratory failure Qualifiers: Chronicity: acute Respiratory failure complication: hypoxia and hypercapnia Qualified Code(s): J96.01 - Acute respiratory failure with hypoxia
[2021-02-14 11:34] LABS: Basophils # (auto) 0.03 K/uL (0-0.2); Basophils % (auto) 0.2 %; Hematocrit (blood only) 42.7 % (37-47); Hemoglobin 14.5 g/dL (12.0-16.0); Immature Granulocytes # (auto) 0.14 K/uL (0.00-0.02); Immature Granulocytes % (auto) 0.9 %; Lymphocytes % (auto) 11.3 %; Mean Corpuscular Hemoglobin 29.4 pg (25-34); Mean Corpuscular Volume 86.4 fL (80-100); Mean Platelet Volume 10.6 fL (7.4-10.4); Monocytes % (auto) 8.2 %; Neutrophils # (auto) 12.61 K/uL (1.4-6.5); Neutrophils % (auto) 79.4 %; Platelet Count 291 K/uL (130-400); RDW Coefficient of Variation 12.8 % (11.5-14.5); RDW Standard Deviation 40.9 fL (36.4-46.3); Red Blood Count 4.94 M/uL (4.2-5.4); White Blood Count 15.88 K/uL (4.8-10.8)
[2021-02-14] MEDS ORDERED: PROPOFOL BOLUS FROM BAG IV PRN ×2 (11:40→16:14)
[2021-02-14] MEDS ORDERED: PIPERACILL/TAZOBAC CONSULT ACTIVE PRN (11:40)
[2021-02-14] MEDS ORDERED: PROPOFOL IV EMULSION 10 MG/ML 100 ML VIAL IV ONE (11:40)
[2021-02-14] MEDS ORDERED: PIPERACILLIN/TAZOBACTAM 4.5 GM/120 ML BAG IV ONE (11:40)
[2021-02-14] MEDS ORDERED: STAT IV Infusion **Titration per Protocol STA ×2 (11:40→15:42)
[2021-02-14] MEDS: propofoL 1,000 MG/100 ML VIAL IV SCH ×5 (11:42→22:26)
[2021-02-14 11:54] LABS: Alanine Aminotransferase 132 (12-78); Albumin Level 2.6 gm/dl (3.4-5.0); Aspartate Aminotransferase 164 U/L (15-37); BUN Creatinine Ratio 15.9 (10-20); Blood Urea Nitrogen 25 mg/dl (7-18); Calcium 8.7 mg/dl (8.5-10.1); Carbon Dioxide 27 mmol/L (21-32); Chloride 97 mmol/L (98-107); Est GFR (African American) 40.6 ml/min; Glucose 151 mg/dl (70-99); Magnesium 2.2 mg/dl (1.8-2.4); Potassium 3.1 mmol/L (3.5-5.1); Sodium 137 mmol/L (136-145)
[2021-02-14 11:56] LABS: INR 1.3 (0.9-1.1); Partial Thromboplastin Ratio 1.1; Partial Thromboplastin Time 29.8 Seconds (21.0-31.0)
[2021-02-14 11:59] LABS: D Dimer 25150 ug/L FEU (0-500)
[2021-02-14] MEDS ORDERED: SODIUM CHLORIDE 0.9% 1000ML 1,000 ML IV ONE (11:59)
[2021-02-14] MEDS ORDERED: POTASSIUM CHLORIDE / WTR 10 MEQ/100 ML PLCT IV ONE (11:59)
[2021-02-14 12:20] LABS: Albumin Globulin Ratio 0.6 (0.9-2); Alkaline Phosphatase 108 U/L (45-117); Bilirubin,Total 1.8 mg/dl (0.2-1); Globulin 4.7 gm/dl (2.5-4.0); Total Protein 7.3 gm/dl (6.4-8.2)
[2021-02-14 12:25] LABS: Adenovirus PCR Not Detected (NotDetected); Bordetella parapertussis PCR Not Detected (NotDetected); Bordetella pertussis PCR Not Detected (NotDetected); Chlamydia pneumoniae PCR Not Detected (NotDetected); Coronavirus 229E PCR Not Detected (NotDetected); Coronavirus HKU1 PCR Not Detected (NotDetected); Coronavirus NL63 PCR Not Detected (NotDetected); Coronavirus OC43PCR Not Detected (NotDetected); Human Metapneumovirus PCR Not Detected (NotDetected); Influenza A PCR Not Detected (NotDetected); Influenza B PCR Not Detected (NotDetected); Mycoplasma pneumoniae PCR Not Detected (NotDetected); Parainfluenza Virus 1 PCR Not Detected (NotDetected); Parainfluenza Virus 2 PCR Not Detected (NotDetected); Parainfluenza Virus 3 PCR Not Detected (NotDetected); Parainfluenza Virus 4 PCR Not Detected (NotDetected); Respiratory Syncytial VirusPCR Not Detected (NotDetected); Rhinovirus/Enterovirus PCR Not Detected (NotDetected)
[2021-02-14] MEDS ORDERED: OPTIRAY 320 125ml IV ONE (12:29)
[2021-02-14 12:34] LABS: Coronavirus CoV-2 (COVID19)PCR DETECTED (NotDetected)
--- NOTE | 2021-02-14 12:45 | XRay Report ---
XR chest 1V portable HISTORY: 65 years-old Female RSI acute respiratory failure COMPARISON: CTA chest of same day TECHNIQUE: Portable AP view of the chest FINDINGS: Cardiac silhouette is upper limits of normal in size. No pneumothorax or pleural effusion. Multifocal subpleural predominant bilateral mixed interstitial and alveolar opacities are noted within a mid to lower lung zone prominent distribution. Endotracheal tube overlies the midline, 5 mm superior to the xander. Bones appear grossly intact. IMPRESSION: 1. Endotracheal tube terminates less than 1 cm superior to the xander. Repositioning with follow-up i maging is needed. 2. Multifocal bilateral airspace opacities compatible with viral pneumonia. ACT 112: Negative or not required by law. The above report was generated using voice recognition software. It may contain grammatical, syntax o r spelling errors. Electronically signed by: Jake Skelton M.D. 02/14/2021 12:43 PM
--- NOTE | 2021-02-14 12:50 | CT Scan Report ---
CT head/brain wo con CLINICAL HISTORY: 65 years-old Female with AMS. Acutely altered mental status with pneumonia TECHNIQUE: Multiple axial CT images of the head were obtained without contrast. A dose lowering tech nique was utilized adhering to the principles of ALARA. COMPARISON: None. FINDINGS: No acute intracranial hemorrhage, midline shift, hydrocephalus, or abnormal extra-axial collection. T here is a 2.4 x 1.6 cm ill-defined area of decreased attenuation involving the right frontal lobe cor madhav radiata, anterior limb of the right internal capsule, right caudate nucleus and superior lentifor m nucleus. Ill-defined hypodense focus involves the mid to inferior posterior aspect of the left cere bellar hemisphere. White matter hypodensities suggest chronic microvascular ischemic disease. The calvarium is intact. Mastoid air cells are clear. Endotracheal tube is noted with secretions in the nasopharyngeal airway. Mild polypoid because of thickening of the left maxillary sinus. Unremarka ble orbits and soft tissues. IMPRESSION: 1. No acute intracranial hemorrhage or midline shift. 2. 2.4 cm acute versus subacute appearing infarct is noted within the right frontal periventricular d istribution involving the adjacent basal ganglia and internal capsule. 3. Age-indeterminate infarct of the mid to inferior left cerebellar hemisphere. ACT 112: Negative or not required by law. The above report was generated using voice recognition software. It may contain grammatical, syntax o r spelling errors. Electronically signed by: Jake Skelton M.D. 02/14/2021 12:49 PM
[2021-02-14] MEDS ORDERED: dexAMETHasone**PF** 10 MG/ML VIAL IV ONE (13:06)
--- NOTE | 2021-02-14 13:07 | CT Scan Report ---
CT angio chest PE protocol, CT abd pelvis IV con only CT DOSE: 3553.28 mGy.cm HISTORY: 65 years-old Female with PE. She shortness of breath with altered mental status and genera lized abdominal pain TECHNIQUE: Multiple CTA images of the chest were obtained after the intravenous administration of 120 ml Optiray. Coronal and sagittal MIPS were obtained from the axial data set and were submitted for review. All measurements were obtained according to NASCET criteria. CT abdomen and pelvis with IV c ontrast only was also obtained. A dose lowering technique was utilized adhering to the principles of ALARA. COMPARISON: Chest radiograph of same day FINDINGS: CTA: The heart is upper limits of normal in size. Normal thoracic aorta. There is a large amount of bilate ral lobar, segmental and subsegmental pulmonary emboli. Straightening of the intraventricular septum. CT CHEST: No thyroid nodule or pathologically enlarged lymph nodes identified. No pneumothorax or definite pleu ral effusion. Multifocal multilobar distribution of subpleural predominant groundglass and alveolar o pacities are noted within a mid to lower lung zone predominant distribution. There are associated air bronchograms. No suspicious pulmonary nodules or masses identified. Endotracheal tube terminates wit hin the right mainstem bronchus. Unremarkable soft tissues. No acute fracture. Degenerative changes o f the shoulders and spine. CT ABDOMEN/PELVIS: No pneumatosis or pneumoperitoneum. Limited study secondary to upper extremity positioning. Heterogen eity of the spleen may be secondary to phase of contrast imaging. Mildly atrophic pancreas. Cholelith iasis without definite CT evidence of acute cholecystitis. Unremarkable adrenal glands and liver. Abel ateral renal sinus cysts. Symmetric enhancement of the kidneys. No hydronephrosis. A Pena catheter i s noted within a decompressed urinary bladder. Enhancing 3.2 cm lesion involving the left aspect of t he uterine fundus is suggestive of a probable fibroid. Aorta and IVC are unremarkable. No adenopathy. No bowel obstruction or bowel wall thickening. Normal appendix. Unremarkable soft tissues. Degenerati ve changes of the spine, pelvis and hips. 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 IMPRESSION: 1. The endotracheal tube terminates within the right mainstem bronchus. Retraction with follow-up jhonathan st radiograph recommended. 2. Extensive bilateral pulmonary emboli with right heart strain. 3. Extensive bilateral subpleural predominant groundglass and alveolar opacities compatible with hari l pneumonia. 4. No bowel obstruction or bowel wall thickening. 5. Cholelithiasis. 6. Additional findings as above. ACT 112: Negative or not required by law. The above report was generated using voice recognition software. It may contain grammatical, syntax o r spelling errors. Electronically signed by: Jake Skelton M.D. 02/14/2021 1:05 PM
[2021-02-14] MEDS ORDERED: Heparin IV Adult Wt-Based Standard WITH Bolus Protocol IV STA (13:08)
[2021-02-14] MEDS ORDERED: HEPARIN SOD (PORCINE) 1000 UNIT/ML IV ONE (13:23)
[2021-02-14 13:30] LABS: Base Excess VBG 3.9 mEq/L; HCO3 VBG 28 mmol/L; Oxygen Saturation VBG < 60.0 %; PCO2 VBG 41 mmHg (38-50); PO2 VBG 26 mmHg; pH VBG 7.46 (7.36-7.41)
[2021-02-14 13:40] LABS: Appearance Urine Cloudy (Clear); Bacteria Urine Automated Negative (Negative); Bilirubin Urine 2+ (Negative); Blood Urine 1+ (Negative); Color Urine Dark Yellow; Epithelial Cell Urine Auto >30 /lpf (0-5); Glucose Urine UA Negative (Negative); Ketones Urine Trace (Negative); Leukocyte Esterase Urine Negative (Negative); Nitrite Urine Negative (Negative); Protein Urine 2+ (Negative); RBC Urine Automated 0-4 /hpf (0-4); Specific Gravity Urine > 1.045 (1.000-1.030); Urobilinogen Urine Negative (Negative)
[2021-02-14 13:47] LABS: Cast Urine Automated >30 /lpf (0-5)
[2021-02-14] MEDS: HEPARIN SODIUM/DEXTROSE 25,000 UNITS/500 ML BAG IV SCH (13:52)
--- NOTE | 2021-02-14 14:02 | XRay Report ---
XR chest 1V portable HISTORY: 65 years-old Female ETT pulled back acute respiratory failure COMPARISON: Chest radiograph of same day TECHNIQUE: Portable AP view of the chest FINDINGS: Endotracheal tube overlies the midline, 2.5 cm superior to the xander. C enteric tube has been placed which courses below the diaphragm outside the [id number]. Ardiomediastinal and hilar silhouettes are unchanged. Interstitial coarsening with extensive bilateral airspace opacities redemonstrated. No pneumothorax or large pleural effusion. No acute fracture. IMPRESSION: 1. Satisfactory positioning of the endotracheal and enteric tubes. 2. Extensive bilateral airspace opacities redemonstrated compatible with viral pneumonia. ACT 112: Negative or not required by law. The above report was generated using voice recognition software. It may contain grammatical, syntax o r spelling errors. Electronically signed by: Jake Skelton M.D. 02/14/2021 2:01 PM
--- NOTE | 2021-02-14 14:17 | History & Physical Report ---
Date of Service February 14, 2021 Assessment & Plan (1) Acute respiratory failure with hypoxia: Plan: Current mechanically ventilated with PEEP 12 and FiO2 100% to maintain saturation > 90%. Continued ventilation management per ICU team. Secondary to bilateral PEs +/- COVID-19 pneumonia Procalcitonin positive - continue IV Zosyn currently (2) Pneumonia due to 2019 novel coronavirus: Plan: Dexamethasone 6mg IV COVID isolation (3) Pulmonary embolism: Plan: Heparin standard bolus and drip Not tPA candidate due to CVA below (4) Acute CVA (cerebrovascular accident): Plan: Recommend CT head and neck angiograms. However will defer on admission as already had IV contrast for CT for PE and suspected cardioembolic in light of pulmonary emboli and hypercoagulable state. MRI brain once more stable TTE - taken, pending result, will need additional bubble study to assess for ASD Will defer neurology consult to Lipids and HbA1C with AM labs (5) Acute non-ST elevation myocardial infarction (NSTEMI): Plan: ST elevation in inferior and right precordial leads suspect to be secondary to PEs rather than MN therefore cardiac cath lab technologist deferred per ER discussion with cardiology TTE with preserved LV function and suspected secondary to pulmonary embolism and right heart strain ST depressions laterally possible MN. Lipids and HBA1C with AM labs Aspirin and statin deferred to ICU team Unable to tolerate BB at current time given right heart failure secondary to PEs. Serial troponins - if uptrending consider cardiology consult for catheterization Plan: VTE Prophyalxis - heparin IV drip Diet - NPO Disposition - admit to ICU Admission and Anticipated Discharge Date Admission Date: February 14, 2021 History of Present Illness Chief Complaint: Hypoxia, confusion Primary Care Provider: NO PCP Edda Pulido is a 65 year old female who presents to the ER with unresponsiveness and hypoxia. Unable to obtain any history from the patient as she is intubated and mechanically ventilated. History taken from EMS notes, ER notes, her son (Chavez) and daughter in-law (Kristan) in the ER. She lives alone, has not seen a doctor in 20 years, has no known medical problems and on no regular medications. Baseline: walks without aids, manages her own finances, meals etc... 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 She had COVID-like symptoms starting approximately 3 weeks ago but was never tested and she isolated herself instead. She was in contact with her son (Chavez) by phone and reportedly improving over the last few days and denied feeling any more short of breath than usual. She was seen by her older son (Elio) yesterday and reportedly she was doing ok then; although unknown what time. 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 Therefore a co- worker checked on her this morning and she was in bed, unable to get up and very confused around 8:30am. EMS were called and she was noted to be hypoxic with O2 sats 74%. On arrival to the ER O2 sats were 77%, she was tachypneic and very confused. She was intubated by the ER physician prior to being seen by myself. In the ER CT for PE concerning for bilateral pulmonary emboli with right heart strain. ST elevation in right precordial leads and III consistent with known pulmonary embolism, less likely inferior MN. ER physician discussed case with interventional cardiology and felt EKG and echo findings consistent with pulmonary emboli rather than MN therefore cardiac cath lab technologist deferred at the current time. CT head was concerning for 2.4cm acute vs. subacute stroke in right frontal periventricular region with age-indeterminate infarct in mid to inferior left cerebellar hemisphere. She was started on IV heparin standard and bolus. Her case was discussed by ER physician to ICU attending. She was referred to medicine for admission and ongoing management of COVID-19 pneumonia, CVA and bilateral pulmonary emboli. Allergies Allergy/AdvReac Type Severity Reaction Status Date / Time No Known Allergies Allergy Verified 02/14/21 12:55 Home Medications Medication Instructions Recorded Confirmed Type No Known Home Medications 02/14/21 02/14/21 History Past Med/Surg History Medical History History of pneumonia Social History Smoking Status: Never smoker Hx Alcohol Use: No Hx Substance Use: No Preferred Language: German Communication Ability: Effective Hims Manager Required: No Beliefs That Will Affect Care: None Current Living Situation: Spouse Other Information That Helps Us Care for You: No Feels Safe at Home: Yes Safety Concerns: Feels Safe At This Time Assistive Devices: Prosthesis Review of Systems Review of Systems: Unobtainable due to cognitive status Physical Exam Constitutional: + mechanically ventilated; + not well nourished and no acute distress Eyes: PERRL, conjunctivae normal, anicteric sclerae ENMT: external ear and nose normal, oropharynx normal Neck: trachea midline Respiratory: Auscultation: + rhonchi (bilaterally); no diminished lung sounds and no wheezes Cardiovascular: Rate/Rhythm: regular rate and regular rhythm Heart Sounds: no murmur Vessels: no JVD Extremities: + pedal edema (1+ equal pitting pre-tibial); + abnormal capillary refill (centrally normal, peripherally 4-5 seconds) and no calf tenderness Gastrointestinal (Abdomen): Inspection/Auscultation: normal bowel sounds Percussion/Palpation: abdomen soft; abdomen nontender Skin: + mottling Neurologic: + does not move all extremities (sedated) and + not awake Psychiatric: Orientation: + not alert Genitourinary: no posturing Results & Data Results & Data ([facility]) Vital Signs (Past 12 Hours) Vital Signs Temp Pulse Resp BP Pulse Ox 02/14/21 13:32 105 H 18 93 02/14/21 13:00 109 H 18 141/97 H 94 02/14/21 12:55 108 H 18 120/93 93 02/14/21 12:45 105 H 18 126/48 L 89 L 02/14/21 12:40 102 H 18 119/79 90 02/14/21 12:35 106 H 18 109/80 92 02/14/21 12:30 113 H 16 140/88 02/14/21 12:28 119 H 20 147/92 H 02/14/21 12:00 107 H 20 161/101 H 88 L 02/14/21 11:55 110 H 16 178/105 H 88 L 02/14/21 11:50 114 H 25 H 186/107 H 89 L 02/14/21 11:49 114 H 16 89 L 02/14/21 11:45 111 H 20 192/119 H 85 L 02/14/21 11:40 103 H 27 H 167/100 H 93 02/14/21 11:35 99 H 27 H 135/101 H 94 02/14/21 11:30 103 H 24 139/72 91 02/14/21 11:20 101 H 17 90 02/14/21 11:10 104 H 43 H 91 02/14/21 11:01 78 L 02/14/21 11:00 104 H 34 H 92 02/14/21 10:55 105 H 30 H 90 02/14/21 10:30 36.8 C 88 44 H 154/76 H [address] head/brain wo con CLINICAL HISTORY: 65 years-old Female with AMS. Acutely altered mental status with pneumonia TECHNIQUE: Multiple axial CT images of the head were obtained without contrast. A dose lowering technique was utilized adhering to the principles of ALARA. COMPARISON: None. FINDINGS: No acute intracranial hemorrhage, midline shift, hydrocephalus, or abnormal extra-axial collection. There is a 2.4 x 1.6 cm ill-defined area of decreased attenuation involving the right frontal lobe chin radiata, anterior limb of the right internal capsule, right caudate nucleus and superior lentiform nucleus. Ill-defined hypodense focus involves the mid to inferior posterior aspect of the left cerebellar hemisphere. White matter hypodensities suggest chronic microvascular ischemic disease. The calvarium is intact. Mastoid air cells are clear. Endotracheal tube is noted with secretions in the nasopharyngeal airway. Mild polypoid because of thickening of the left maxillary sinus. Unremarkable orbits and soft tissues. IMPRESSION: 1. No acute intracranial hemorrhage or midline shift. 2. 2.4 cm acute versus subacute appearing infarct is noted within the right frontal periventricular distribution involving the adjacent basal ganglia and internal capsule. 3. Age-indeterminate infarct of the mid to inferior left cerebellar hemisphere. CT angio chest PE protocol, CT abd pelvis IV con only CT DOSE: 3553.28 mGy.cm HISTORY: 65 years-old Female with PE. She shortness of breath with altered mental status and generalized abdominal pain TECHNIQUE: Multiple CTA images of the chest were obtained after the intravenous administration of 120 ml Optiray. Coronal and sagittal MIPS were obtained from the axial data set and were submitted for review. All measurements were obtained according to NASCET criteria. CT abdomen and pelvis with IV contrast only was also obtained. A dose lowering technique was utilized adhering to the principles of ALARA. COMPARISON: Chest radiograph of same day FINDINGS: CTA: The heart is upper limits of normal in size. Normal thoracic aorta. There is a large amount of bilateral lobar, segmental and subsegmental pulmonary emboli. Straightening of the intraventricular septum. CT CHEST: No thyroid nodule or pathologically enlarged lymph nodes identified. No pneumothorax or definite pleural effusion. Multifocal multilobar distribution of subpleural predominant groundglass and alveolar opacities are noted within a mid to lower lung zone predominant distribution. There are associated air bronchograms. No suspicious pulmonary nodules or masses identified. Endotracheal tube terminates within the right mainstem bronchus. Unremarkable soft tissues. No acute fracture. Degenerative changes of the shoulders and spine. CT ABDOMEN/PELVIS: No pneumatosis or pneumoperitoneum. Limited study secondary to upper extremity positioning. Heterogeneity of the spleen may be secondary to phase of contrast imaging. Mildly atrophic pancreas. Cholelithiasis without definite CT evidence of acute cholecystitis. Unremarkable adrenal glands and liver. Bilateral renal sinus cysts. Symmetric enhancement of the kidneys. No hydronephrosis. A Pena catheter is noted within a decompressed urinary bladder. Enhancing 3.2 cm lesion involving the left aspect of the uterine fundus is suggestive of a probable fibroid. Aorta and IVC are unremarkable. No adenopathy. No bowel obstruction or bowel wall thickening. Normal appendix. Unremarkable soft tissues. Degenerative changes of the spine, pelvis and hips. 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 IMPRESSION: 1. The endotracheal tube terminates within the right mainstem bronchus. Retraction with follow-up chest radiograph recommended. 2. Extensive bilateral pulmonary emboli with right heart strain. 3. Extensive bilateral subpleural predominant groundglass and alveolar opacities compatible with viral pneumonia. 4. No bowel obstruction or bowel wall thickening. 5. Cholelithiasis. 6. Additional findings as above. Medications Administered ER Medications Given: Propofol Zosyn 4.5g IV Potassium chloride 10 meq IV NSS 1L bolus Dexamethasone 10mg IV ECG Indication: altered mental status Rate (beats per minute): 104 Rhythm: sinus tachycardia Findings: + ST depression (Lateral) and + ST elevation (III, avR) Comparison ECG Date: no prior available Code Status & VTE Plan Code Status Full per preliminary discussion with her son Chavez who will discuss with his brother Elio and call ICU if this changes. Life threatening illness with high mortality rate explained to her son. VTE Prophylaxis Plan VTE Prophylaxis will be ordered: Yes PG Care Time/CCT Total # of Minutes Spent Total Time Spent with Patient: Total time spent is greater than 50% in coordination of care (as documented) at patient's floor/unit and/or counseling patient: Coding Level of Care Code 54383 Initial Inpt Care Lvl 3 Diagnoses Pneumonia due to 2019 novel coronavirus U07.1; J12.82 Pulmonary embolism I26.99 Acute cor pulmonale presence: unspecified Chronicity: acute Pulmonary embolism type: unspecified Acute respiratory failure with hypoxia J96.01 Acute CVA (cerebrovascular accident) I63.9 Acute non-ST elevation myocardial infarction (NSTEMI) I21.4 (1) Pulmonary embolism Acute cor pulmonale presence: unspecified Chronicity: acute Pulmonary embolism type: unspecified Qualified Code(s): I26.99 - Other pulmonary embolism without acute cor pulmonale
--- NOTE | 2021-02-14 14:34 | Electrocardiogram Report ---
Test Reason : Blood Pressure : / mmHG Vent. Rate : 104 BPM Atrial Rate : 104 BPM P-R Int : 132 ms QRS Dur : 086 ms QT Int : 380 ms P-R-T Axes : 068 037 -67 degrees QTc Int : 499 ms Poor data quality, interpretation may be adversely affected Sinus tachycardia ST elevation in the inferior and right precordial leads c/w patients known Pulmonary Embolism seconda ry to RV strain and less likely from an acute Inferior AL ST depression consider lateral ischemia Abnormal ECG No previous ECGs available Confirmed by Adolfo Murphy ([id number]) on 02/14/2021 2:34:28 PM Referred By: REFERRED SELF Confirmed By:Adolfo Murphy
--- NOTE | 2021-02-14 15:25 | Critical Care Consultation ---
Date of Consultation February 14, 2021 Assessment & Plan (1) Acute respiratory failure with hypoxia: (2) Pneumonia due to 2019 novel coronavirus: (3) Pulmonary embolism: (4) Acute CVA (cerebrovascular accident): ICU CONSULT NOTE FORMAT: Reason Critically Ill: Hypoxic respiratory failure secondary to COVID 19 and pulmonary embolism with right heart strain and NSTEMI Neuro - CVA, Sedation for mechanical ventilation Last known well not known, 2.4 cm acute/subacute right frontal periventricular and unknown chronicity of the left cerebellar hemispheric CVA. This will preclude the patient for any tPA for ischemic stroke or her Pulmonary Embolisms. Will allow permissive HTN as long as her pulmonary and cardiac status can do so without failure. Follow closely neurologic exams for evaluation of hemorrhagic conversion. Will be on Heparin for her PEs. Will need CT scan for any acute change and/or in the morning to evaluate for hemorrhagic conversion. If this would occur this would likely be a terminal event or leave her further debilitated. Follow Troponin I and ECGs. Cardiac - NSTEMI, elevated Troponin, elevated RVSP with pulmonary embolism, shock Follow hemodynamics closely- may need inotropic support if hemodynamically unstable. Troponin I at 6.[address] depression in inferior/anterior, Lactate of 3.2 with a shock index of 0[place]7 [place] [address]. ECHO completed however bubble study was not completed. EF of left ventricle was maintained at 70%, but severely dilated RV with septal flattening. Patient is not an ECMO candidate secondary to age and morbid obesity. If she required hemodynamic/inotropic support would use epinephrine. Would avoid fluid boluses with her already distended RV. Support hemodynamics as above with epinephrine if needed. ECHO results: EF 70% hyperdynamic- without WMA, RV severely dilated with hypokinetic RV and flattening of the IV septum- normal AV and MV Respiratory - Pulmonary embolism with evidence of right heart strain and shock., COVID 19, bacterial infection Bilateral pulmonary embolisms with evidence of right hear strain, elevated Troponin, ECG changes, and systemic modeling consistent with hypoperfusion as well as elevated lactate. Patient was initiated on heparin drip as she is excluded from tPA secondary to unknown onset of multiple CVAs. Currently She is intubated and mechanically ventilated. We will continue to ventilate her and oxygenate her on ARDSnet low PEEP, high FIO2 protocol. Will have to follow her Pplt pressures and attempt to avoid overdistention or autoPEEP in relation to her PEs. ABG will be drawn on arrival to the ICU. COVID 19 with reported symptoms ~4 weeks ago exact time is unknown. She remains with moderate ground glass opacities throughout her bilateral luns. Continue her Zosyn for elevated PCT and WBC count with air bronchograms noted, bacterial co-infection can not be ruled out at this time. Her CRP is elevated to 17.40 as above continue with Decadron 6mg. Not a candidate for Baracitinib or Tocilizumab as she is now intubated. Can trial epoprostenol for her PEs and COVID if further support is needed. GI - Morbid obesity - NPO continue OGT/NGT to LIWS if she remains of vasoactive medications or NMB can initiate tube feeds in the morning, will add dextrose sticks and monitor with ICU hyperglycemia protocol RENAL/LYTES - No acute needs follow renal function - Elevated liver enzymes in the setting of acute process- likely acute phase reactant. INR at 1.3. Follow with perfusion status ENDO - Elevated blood glucose Very well could have undiagnosed DMII, glycemic ICU protocol HEME - No acute needs ID - Elevated WBC and PCT- Continue empiric Zosyn for likely bacterial pneumonia with COVID 19 pneumonia - WBC and NLR elevated, elevated lactate - NLR and WBC elevation may be related to current physiological stress from her PE. LINES/IV ACCESS - Right Fem CVL, PIV, ETT, OGT, Pena- continue use of these lines DVT PROPHYLAXIS - Therapeutic heparin drip DISPO: ICU with high mortality. I have personally spent 65 minutes of critical care time in the direct management of this patient. This is a life/limb threatening event. This includes time spent evaluating patient, direct bedside care, chart review, placing orders, interpretation of diagnostic studies, discussion with consultants, patient, and family members, as well as other required patient management activities. This time is exclusive of all separately billable procedures, and teaching time and separate from and in addition to any other critical care service time. Thank you for allowing us to participate in the care of this patient. Please refer to my attending physician's documentation for any further recommendations. Supervising Physician Co-Signing Physician Notes Patient seen and examined. EMR reviewed. Imaging studies independently reviewed. Discussed with critical care SYLVIA and agree with assessment plan as noted. Patient presented with altered mental status. She was intubated. CT of the head showed strokes. CT of the chest showed bilateral PEs. Suspect she has paradoxical emboli. She is also Covid positive. Continue heparin. We will request echocardiogram with bubble study. May benefit from cardiology consultation. Will need neurology consultation and probable MRI of the brain in the next 24 to 48 hours. Continue dexamethasone for Covid. This may offer some benefit with regards to her stroke. We will need aggressive glycemic control, potentially with an insulin infusion. Check respiratory culture and procalcitonin. If negative can likely discontinue antimicrobial therapy. CRP significantly elevated, however given her clotting issues, do not think she is a candidate for additional immune suppression outside of dexamethasone. Follow kidney function and replace electrolytes. Lactate trending down. Elevated troponin likely supply demand mismatch. Will trend. Echo without regional wall motion abnormality. Patient's overall prognosis is guarded at this point time. History of Present Illness Reason for Consultation: Intubated, Hypoxic respiratory failure COVID 19, PE, CVA, Requesting Physician: Onesimo Luna Attending Physician: Tyler Cabrera History of Present Illness Edda Pulido is a 65 year old female who presents to the ER with unresponsiveness and hypoxia. Unable to obtain any history from the patient as she is intubated and mechanically ventilated. History obtained from EMR and EMS notes. Patient reportedly lives alone, does not routinely seek medical care. She did not show up for work last night and was found unresponsive in her bed by one of her co-workers going to check on her. She had COVID-reportedly starting approximately 3 weeks ago but was never tested and she isolated herself. Last known well was yesterday in the daytime (unkown) when she talked to her son. In the EMD the patient Spo2 on arrival was 77%, she was intubated at that time. Patient had CT of her head performed which revealed 3 areas of ischemic stroke with unknown times, she had CTA of her chest which reveals bilateral pe resulting in right heart strain, elevated troponin I, and systemic evidence of shock. She was noted to have positive troponin and STdepressions on her ECG likely related to her PEs an ECHO was performed with results below, however performed without bubble study. Patient will be started on Decadron for her COVID19, heparin drip for her PE and following neurological exam for her CVA. Repeat head CT if any change and in the morning for evaluation of hemorrhagic conversion. Support the rest of her organs with adequate MAPS. Allergies Allergy/AdvReac Type Severity Reaction Status Date / Time No Known Allergies Allergy Verified 02/14/21 12:55 Home Medications Medication Instructions Recorded Confirmed Type No Known Home Medications 02/14/21 02/14/21 History Patient History Medical History History of pneumonia Social History Smoking Status: Never smoker Feels Safe at Home: Yes Review of Systems Review of Systems: REVIEW OF SYSTEMS: Constitutional: No fever, sweats or chills Eyes: No diplopia, no worsening or blurred vision ENT: normal hearing, no trouble swallowing Respiratory: No cough, sputum, dyspnea at rest or on exertion Cardiovascular: No chest pain, tightness or palpitations Abdomen: No pain, nausea, vomiting, diarrhea or constipation Musculoskeletal: No joint pain, calf pain, swelling Neurologic: No weakness, numbness/tingling, or balance problems Psychiatric: No anxiety or depression Skin: No rash or itch Physical Exam Physical Exam: PHYSICAL EXAM: General: Intubated and sedated Neuro: Pupils are equal and reactive and does withdraw to pain Chest: equal rise and fall of the chest, no accessory muscle use, no heaves or thrills, Clear to auscultation, on room air, Cardiac: Regular rate and rhythm, telemetry reviewed, skin warm dry, cap refill <3 seconds, peripheral pulses +2 no JVD, no murmur, no edema GI: NABS x 4 quadrants, soft, nontender to palpation, no rebound, guarding or tenderness : Spontaneously voiding, no pain, no CVA tenderness, Extremities: mottling to bilateral lower legs and upper abdomen Psych: Normal mood and affect Skin: no rash or erythema Results & Data Results & Data ([facility]) Vital Signs (Past 12 Hours) Vital Signs Temp Pulse Resp BP Pulse Ox 02/14/21 14:55 113 H 25 H 116/89 91 02/14/21 14:53 114 H 124/85 91 02/14/21 14:35 116 H 22 141/34 H 91 02/14/21 14:30 116 H 20 129/90 92 02/14/21 14:25 116 H 20 129/94 91 02/14/21 14:20 115 H 20 135/91 92 02/14/21 14:15 116 H 19 133/88 92 02/14/21 14:10 115 H 16 134/90 94 02/14/21 14:05 115 H 18 132/86 94 02/14/21 14:00 114 H 18 122/88 94 02/14/21 13:55 113 H 18 124/86 94 02/14/21 13:50 112 H 18 127/86 94 02/14/21 13:45 110 H 18 117/84 94 02/14/21 13:40 110 H 18 125/84 94 02/14/21 13:35 110 H 15 93 02/14/21 13:32 105 H 18 93 02/14/21 13:30 108 H 18 120/79 94 02/14/21 13:25 112 H 14 141/89 H 94 02/14/21 13:20 113 H 26 H 154/99 H 94 02/14/21 13:15 110 H 18 163/87 H 95 02/14/21 13:10 108 H 18 139/86 94 02/14/21 13:05 109 H 18 136/89 94 02/14/21 13:00 109 H 18 141/97 H 94 02/14/21 12:55 108 H 18 120/93 93 02/14/21 12:45 105 H 18 126/48 L 89 L 02/14/21 12:40 102 H 18 119/79 90 02/14/21 12:35 106 H 18 109/80 92 02/14/21 12:30 113 H 16 140/88 02/14/21 12:28 119 H 20 147/92 H 02/14/21 12:00 107 H 20 161/101 H 88 L 02/14/21 11:55 110 H 16 178/105 H 88 L 02/14/21 11:50 114 H 25 H 186/107 H 89 L 02/14/21 11:49 114 H 16 89 L 02/14/21 11:45 111 H 20 192/119 H 85 L 02/14/21 11:40 103 H 27 H 167/100 H 93 02/14/21 11:35 99 H 27 H 135/101 H 94 02/14/21 11:30 103 H 24 139/72 91 12/19/21 11:20 101 H 17 90 12/19/21 11:10 104 H 43 H 91 02/14/21 11:01 78 L 02/14/21 11:00 104 H 34 H 92 02/14/21 10:55 105 H 30 H 90 02/14/21 10:30 36.8 C 88 44 H 154/76 H 77 L Laboratory Results Abnormal lab results 02/14/21 02/14/21 02/14/21 Range/Units 10:55 11:22 11:22 WBC 15.88 H (4.8-10.8) K/uL MPV 10.6 H (7.4-10.4) fL Neut # (Auto) 12.61 H (1.4-6.5) K/uL Stanly # (Auto) 1.30 H (0.11-0.59) K/uL Immature Gran # (Auto) 0.14 H (0.00-0.02) K/uL PT 13.0 H (9.0-12.0) Seconds INR 1.3 H (0.9-1.1) D-Dimer 21036 H* (0-500) ug/L FEU VBG pH (7.36-7.41) Potassium (3.5-5.1) mmol/L Chloride (98-107) mmol/L Anion Gap (3-11) BUN (7-18) mg/dl Creatinine (0.6-1.2) mg/dl Glucose (70-99) mg/dl Lactate (0.4-2.0) mmol/L Total Bilirubin (0.2-1) mg/dl AST (15-37) U/L ALT (12-78) Troponin I (0-0.045) ng/ml Albumin (3.4-5.0) gm/dl Globulin (2.5-4.0) gm/dl Albumin/Globulin Ratio (0.9-2) Procalcitonin (0-0.5) ng/ml Urine Appearance (Clear) Ur Specific Wildwood (1.000-1.030) Urine Protein (Negative) Urine Ketones (Negative) Urine Blood (Negative) Urine Bilirubin (Negative) Urine WBC (Auto) (0-5) /hpf U Hyaline Cast (Auto) (0-5) /lpf U Epithel Cells (Auto) (0-5) /lpf Granular Casts (0) /lpf SARS-CoV-2 (PCR) DETECTED A* (NotDetected) 02/14/21 02/14/21 02/14/21 Range/Units 11:22 11:22 11:22 WBC (4.8-10.8) K/uL MPV (7.4-10.4) fL Neut # (Auto) (1.4-6.5) K/uL Stanly # (Auto) (0.11-0.59) K/uL Immature Gran # (Auto) (0.00-0.02) K/uL PT (9.0-12.0) Seconds INR (0.9-1.1) D-Dimer (0-500) ug/L FEU VBG pH (7.36-7.41) Potassium 3.1 L (3.5-5.1) mmol/L Chloride 97 L (98-107) mmol/L Anion Gap 13.0 H (3-11) BUN 25 H (7-18) mg/dl Creatinine 1.56 H (0.6-1.2) mg/dl Glucose 151 H (70-99) mg/dl Lactate 4.0 H* (0.4-2.0) mmol/L Total Bilirubin 1.8 H (0.2-1) mg/dl AST 164 H (15-37) U/L ALT 132 H (12-78) Troponin I 6.570 H* (0-0.045) ng/ml Albumin 2.6 L (3.4-5.0) gm/dl Globulin 4.7 H (2.5-4.0) gm/dl Albumin/Globulin Ratio 0.6 L (0.9-2) Procalcitonin 0.91 H (0-0.5) ng/ml Urine Appearance (Clear) Ur Specific Wildwood (1.000-1.030) Urine Protein (Negative) Urine Ketones (Negative) Urine Blood (Negative) Urine Bilirubin (Negative) Urine WBC (Auto) (0-5) /hpf U Hyaline Cast (Auto) (0-5) /lpf U Epithel Cells (Auto) (0-5) /lpf Granular Casts (0) /lpf SARS-CoV-2 (PCR) (NotDetected) 02/14/21 02/14/21 02/14/21 Range/Units 11:22 13:30 13:38 WBC (4.8-10.8) K/uL MPV (7.4-10.4) fL Neut # (Auto) (1.4-6.5) K/uL Stanly # (Auto) (0.11-0.59) K/uL Immature Gran # (Auto) (0.00-0.02) K/uL PT (9.0-12.0) Seconds INR (0.9-1.1) D-Dimer (0-500) ug/L FEU VBG pH 7.46 H (7.36-7.41) Potassium (3.5-5.1) mmol/L Chloride (98-107) mmol/L Anion Gap (3-11) BUN (7-18) mg/dl Creatinine (0.6-1.2) mg/dl Glucose (70-99) mg/dl Lactate 2.3 H* (0.4-2.0) mmol/L Total Bilirubin (0.2-1) mg/dl AST (15-37) U/L ALT (12-78) Troponin I (0-0.045) ng/ml Albumin (3.4-5.0) gm/dl Globulin (2.5-4.0) gm/dl Albumin/Globulin Ratio (0.9-2) Procalcitonin (0-0.5) ng/ml Urine Appearance Cloudy A (Clear) Ur Specific Wild[place] > 1.045 H (1.000-1.030) Urine Protein 2+ H (Negative) Urine Ketones Trace H (Negative) Urine Blood 1+ H (Negative) Urine Bilirubin 2+ H (Negative) Urine WBC (Auto) 5-10 H (0-5) /hpf U Hyaline Cast (Auto) >30 H (0-5) /lpf U Epithel Cells (Auto) >30 H (0-5) /lpf Granular Casts 10-20 H (0) /lpf SARS-CoV-2 (PCR) (NotDetected) Diagnostic Findings Abdomen/Pelvis CT 02/14/21 11:40 CT angio chest PE protocol, CT abd pelvis IV con only CT DOSE: 3553.28 mGy.cm HISTORY: 65 years-old Female with PE. She shortness of breath with altered mental status and generalized abdominal pain TECHNIQUE: Multiple CTA images of the chest were obtained after the intravenous administration of 120 ml Optiray. Coronal and sagittal MIPS were obtained from the axial data set and were submitted for review. All measurements were obtained according to NASCET criteria. CT abdomen and pelvis with IV contrast only was also obtained. A dose lowering technique was utilized adhering to the principles of ALARA. COMPARISON: Chest radiograph of same day FINDINGS: CTA: The heart is upper limits of normal in size. Normal thoracic aorta. There is a large amount of bilateral lobar, segmental and subsegmental pulmonary emboli. Straightening of the intraventricular septum. CT CHEST: No thyroid nodule or pathologically enlarged lymph nodes identified. No pneumothorax or definite pleural effusion. Multifocal multilobar distribution of subpleural predominant groundglass and alveolar opacities are noted within a mid to lower lung zone predominant distribution. There are associated air bronchograms. No suspicious pulmonary nodules or masses identified. Endotracheal tube terminates within the right mainstem bronchus. Unremarkable soft tissues. No acute fracture. Degenerative changes of the shoulders and spine. CT ABDOMEN/PELVIS: No pneumatosis or pneumoperitoneum. Limited study secondary to upper extremity positioning. Heterogeneity of the spleen may be secondary to phase of contrast imaging. Mildly atrophic pancreas. Cholelithiasis without definite CT evidence of acute cholecystitis. Unremarkable adrenal glands and liver. Bilateral renal sinus cysts. Symmetric enhancement of the kidneys. No hydronephrosis. A Pena ca theter is noted within a decompressed urinary bladder. Enhancing 3.2 cm lesion involving the left aspect of the uterine fundus is suggestive of a probable fibroid. Aorta and IVC are unremarkable. No adenopathy. No bowel obstruction or bowel wall thickening. Normal appendix. Unremarkable soft tissues. Degenerative changes of the spine, pelvis and hips. 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 IMPRESSION: 1. The endotracheal tube terminates within the right mainstem bronchus. Retraction with follow-up chest radiograph recommended. 2. Extensive bilateral pulmonary emboli with right heart strain. 3. Extensive bilateral subpleural predominant groundglass and alveolar opacities compatible with viral pneumonia. 4. No bowel obstruction or bowel wall thickening. 5. Cholelithiasis. 6. Additional findings as above. ACT 112: Negative or not required by law. The above report was generated using voice recognition software. It may contain grammatical, syntax or spelling errors. Electronically signed by: Jake Skelton M.D. 02/14/2021 1:05 PM Chest CTA 02/14/21 11:40 CT angio chest PE protocol, CT abd pelvis IV con only CT DOSE: 3553.28 mGy.cm HISTORY: 65 years-old Female with PE. She shortness of breath with altered m ental status and generalized abdominal pain TECHNIQUE: Multiple CTA images of the chest were obtained after the intravenous administration of 120 ml Optiray. Coronal and sagittal MIPS were obtained from the axial data set and were submitted for review. All measurements were obtained according to NASCET criteria. CT abdomen and pelvis with IV contrast only was also obtained. A dose lowering technique was utilized adhering to the principles of ALARA. COMPARISON: Chest radiograph of same day FINDINGS: CTA: The heart is upper limits of normal in size. Normal thoracic aorta. There is a large amount of bilateral lobar, segmental and subsegmental pulmonary emboli. Straightening of the intraventricular septum. CT CHEST: No thyroid nodule or pathologically enlarged lymph nodes identified. No pneumothorax or definite pleural effusion. Multifocal multilobar distribution of subpleural predominant groundglass and alveolar opacities are noted within a mid to lower lung zone predominant distribution. There are associated air bronchograms. No suspicious pulmonary nodules or masses identified. Endotracheal tube terminates within the right mainstem bronchus. Unremarkable soft tissues. No acute fracture. Degenerative changes of the shoulders and spine. CT ABDOMEN/PELVIS: No pneumatosis or pneumoperitoneum. Limited study secondary to upper extremity positioning. Heterogeneity of the spleen may be secondary to phase of contrast imaging. Mildly atrophic pancreas. Cholelithiasis without definite CT evidence of acute cholecystitis. Unremarkable adrenal glands and liver. Bilateral renal sinus cysts. Symmetric enhancement of the kidneys. No hydronephrosis. A Pena catheter is noted within a decompressed urinary bladder. Enhancing 3.2 cm lesion involving the left aspect of the uterine fundus is suggestive of a probable fibroid. Aorta and IVC are unremarkable. No adenopathy. No bowel obstruction or bowel wall thickening. Normal appendix. Unremarkable soft tissues. Degenerative changes of the spine, pelvis and hips. 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 IMPRESSION: 1. The endotracheal tube terminates within the right mainstem bronchus. Retraction with follow-up chest radiograph recommended. 2. Extensive bilateral pulmonary emboli with right heart strain. 3. Extensive bilateral subpleural predominant groundglass and alveolar opacities compatible with viral pneumonia. 4. No bowel obstruction or bowel wall thickening. 5. Cholelithiasis. 6. Additional findings as above. ACT 112: Negative or not required by law. The above report was generated using voice recognition software. It may contain grammatical, syntax or spelling errors. Electronically signed by: Jake Skelton M.D. 02/14/2021 1:[address] 02/14/21 11:40 CT head/brain wo con CLINICAL HISTORY: 65 years-old Female with AMS. Acutely altered mental status with pneumonia TECHNIQUE: Multiple axial CT images of the head were obtained without contrast. A dose lowering technique was utilized adhering to the principles of ALARA. COMPARISON: None. FINDINGS: No acute intracranial hemorrhage, midline shift, hydrocephalus, or abnormal extra-axial collection. There is a 2.4 x 1.6 cm ill-defined area of decreased attenuation involving the right frontal lobe chin radiata, anterior limb of the right internal capsule, right caudate nucleus and superior lentiform nucleus. Ill-defined hypodense focus involves the mid to inferior posterior aspect of the left cerebellar hemisphere. White matter hypodensities suggest chronic microvascular ischemic disease. The calvarium is intact. Mastoid air cells are clear. Endotracheal tube is noted with secretions in the nasopharyngeal airway. Mild polypoid because of thickening of the left maxillary sinus. Unremarkable orbits and soft tissues. IMPRESSION: 1. No acute intracranial hemorrhage or midline shift. 2. 2.4 cm acute versus subacute appearing infarct is noted within the right frontal periventricular distribution involving the adjacent basal ganglia and internal capsule. 3. Age-indeterminate infarct of the mid to inferior left cerebellar hemisphere. ACT 112: Negative or not required by law. The above report was generated using voice recognition software. It may contain grammatical, syntax or spelling errors. Electronically signed by: Jake Skelton M.D. 02/14/2021 12:49 PM Chest X-Ray 02/14/21 12:02 XR chest 1V portable HISTORY: 65 years-old Female RSI acute respiratory failure COMPARISON: CTA chest of same day TECHNIQUE: Portable AP view of the chest FINDINGS: Cardiac silhouette is upper limits of normal in size. No pneumothorax or pleural effusion. Multifocal subpleural predominant bilateral mixed interstitial and alveolar opacities are noted within a mid to lower lung zone prominent distribution. Endotracheal tube overlies the midline, 5 mm superior to the xander. Bones appear grossly intact. IMPRESSION: 1. Endotracheal tube terminates less than 1 cm superior to the xander. Repositioning with follow-up imaging is needed. 2. Multifocal bilateral airspace opacities compatible with viral pneumonia. ACT 112: Negative or not required by law. The above report was generated using voice recognition software. It may contain grammatical, syntax or spelling errors. Electronically signed by: Jake Skelton M.D. 02/14/2021 12:43 PM Chest X-Ray 02/14/21 13:08 XR chest 1V portable HISTORY: 65 years-old Female ETT pulled back acute respiratory failure COMPARISON: Chest radiograph of same day TECHNIQUE: Portable AP view of the chest FINDINGS: Endotracheal tube overlies the midline, 2.5 cm superior to the xander. C enteric tube has been placed which courses below the diaphragm outside the [id number]. Ardiomediastinal and hilar silhouettes are unchanged. Interstitial coarsening with extensive bilateral airspace opacities redemonstrated. No pneumothorax or large pleural effusion. No acute fracture. IMPRESSION: 1. Satisfactory positioning of the endotracheal and enteric tubes. 2. Extensive bilateral airspace opacities redemonstrated compatible with viral pneumonia. ACT 112: Negative or not required by law. The above report was generated using voice recognition software. It may contain grammatical, syntax or spelling errors. Electronically signed by: Jake Skelton M.D. 02/14/2021 2:01 PM Medications Administered Propofol (Diprivan) 1,000 mg in 100 mls @ 18.12 mls/hr IV .Q5H32M [facility]; Protocol Stop: 02/17/21 11:44 Last Admin: 02/14/21 11:42 Dose: 20 mcg/kg/min, 18.1 mls/hr Documented by: [id number] Cosigned by: [id number] Heparin Sodium/Dextrose (Heparin Sodium/Dextrose) 25,000 units in 500 mls @ 0.02 mls/hr IV .Q24H [facility]; Protocol Stop: 03/16/21 13:29 Last Admin: 02/14/21 13:52 Dose: 1,550 units/hr, 31 mls/hr Documented by: [id number] Cosigned by: [id number] Discontinued Medications Dexamethasone Sodium Phosphate (DexamethasonePf 10 Mg/Ml Vial) 10 mg IV NOW ONE Stop: 02/14/21 13:07 Last Admin: 02/14/21 13:55 Dose: 10 mg Documented by: [id number] Heparin Sodium (Porcine) (Heparin Sod (Porcine) 1000 Unit/Ml) 1 units IV NOW ONE Stop: 02/14/21 13:24 Last Admin: 02/14/21 13:49 Dose: 7,000 units Documented by: [id number] Cosigned by: [id number] Heparin Sodium/Dextrose (Heparin Iv Adult Wt-Based Standard With Bolus Protocol) 1 ea IV NOW STA; Protocol Stop: 02/14/21 13:09 Last Admin: 02/14/21 13:58 Dose: 1 ea Documented by: [id number] Piperacillin Sod/Tazobactam Sod (Zosyn) 4.5 gm in 120 mls @ 240 mls/hr IV NOW ONE Stop: 02/14/21 12:09 Last Infusion: 02/14/21 13:28 Dose: 0 mls/hr Documented by: [id number] Admin: 02/14/21 12:37 Dose: 240 mls/hr Documented by: [id number] Sodium Chloride (Nss 1000ml) 1,000 mls @ 999 mls/hr IV .Q1H1M ONE Stop: 02/14/21 12:59 Last Infusion: 02/14/21 13:28 Dose: 0 mls/hr Documented by: [id number] Admin: 02/14/21 11:59 Dose: 999 mls/hr Documented by: [id number] Potassium Chloride (K Corwin / Wtr) 10 meq in 100 mls @ 100 mls/hr IV ONE ONE; Protocol Stop: 02/14/21 12:58 Last Infusion: 02/14/21 13:57 Dose: 0 mls/hr Documented by: [id number] Admin: 02/14/21 12:57 Dose: 100 mls/hr Documented by: [id number] Ioversol (Optiray 320 125ml) 120 ml IV ONCE ONE Stop: 02/14/21 12:30 Last Admin: 12/19/21 12:29 Dose: 120 ml Documented by: [id number] Miscellaneous (Rapid Sequence Induction Bag) Confirm Administered Dose 1 ea .ROUTE .STK-MED ONE Stop: 02/14/21 11:04 Last Admin: 02/14/21 11:34 Dose: 1 ea Documented by: [id number] Propofol (Propofol Iv Emulsion 10 Mg/Ml 100 Ml Vial) Confirm Administered Dose 1,000 mg IV .STK-MED ONE Stop: 02/14/21 11:41 Last Admin: 02/14/21 11:57 Dose: Not Given Documented by: [id number] Coding Level of Care Code Critical Care 1st 30-74 mins Diagnoses Acute respiratory failure with hypoxia J96.01 Pneumonia due to 2019 novel coronavirus U07.1; J12.82 Pulmonary embolism I26.99 Acute cor pulmonale presence: unspecified Chronicity: acute Pulmonary embolism type: unspecified Acute CVA (cerebrovascular accident) I63.9 (1) Pulmonary embolism Acute cor pulmonale presence: unspecified Chronicity: acute Pulmonary embolism type: unspecified Qualified Code(s): I26.99 - Other pulmonary embolism without acute cor pulmonale
[2021-02-14 15:52] LABS: Creatine Kinase 825 U/L (26-192); NT Pro B Type Natriuretic Pept 9133 pg/ml (0-900)
[2021-02-14] MEDS ORDERED: ICU PROTOCOL FOR HYPERGLYCEMIA SCH (16:14)
[2021-02-14] MEDS ORDERED: ICU PROTOCOL FOR HYPERGLYCEMIA PRN (16:14)
[2021-02-14] MEDS ORDERED: propofoL 1,000 MG/100 ML VIAL IV SCH (16:14)
[2021-02-14] MEDS: fentaNYL citrate 2,500 MCG/250 ML BAG IV SCH (16:27)
[2021-02-14 17:25] LABS: Fibrinogen 378 mg/dl (184-400)
[2021-02-14] MEDS: dexAMETHasone 6 MG in SYRINGE 0 ML IV SCH (17:31)
[2021-02-14] MEDS: PIPERACILLIN/TAZOBACTAM 4.5 GM in DEXTROSE 5% 100 ML IV SCH (17:31)
[2021-02-14 17:43] LABS: Calcium 8.4 mg/dl (8.5-10.1); Creatinine Clr Calc Pharmacy 53.4 ml/min; Est GFR (African American) 37.1 ml/min; Potassium 3.8 mmol/L (3.5-5.1)
--- NOTE | 2021-02-14 17:50 | Procedure Note ---
Procedure Note Date of Service February 14, 2021 Note ARTERIAL LINE PROCEDURE NOTE: Ultrasound guided insertion of catheter into radial artery Procedure: Arterial Line Placement Attending: Dr. Cabrera APC: Jung HARRISON ([facility] Indication: Monitoring on Pressors, ABGs Anesthesia: [x]None Emergent consent was implied with intubation A time-out was completed verifying correct patient, or special equipment if applicable. Allens test was performed to ensure adequate perfusion. Patients LT wrist was prepped and draped in the usual sterile fashion. Ultrasound guidance was used to aid needle placement. A 20g Arrow arterial line was introduced into the Left radial artery with brisk flash of blood. Catheter was threaded, and the needle was removed with appropriate blood return. Good waveform was observed. The patient tolerated the procedure well. The line was then sutured in place and sterile dressing applied. Blood Loss: Minimal Complications: None Procedural Ultrasound Guidance: Procedure Date: Complications: NONE Patient tolerated procedure: WELL Coding
[2021-02-14 18:34] LABS: Troponin I 7.29 ng/ml (0-0.045)
[2021-02-14 20:34] LABS: Partial Thromboplastin Ratio 3.2
[2021-02-14 21:22] LABS: Partial Thromboplastin Time 84.2 Seconds (21.0-31.0)
[2021-02-14] MEDS: PATIENT'S HEIGHT AND/OR WEIGHT NEEDED SCH (21:30)
[2021-02-14] MEDS ORDERED: PHARMACY GLYCEMIC MGMT CONSULT PRN (22:56)
[2021-02-14] MEDS ORDERED: DEXTROSE 50% 50 ML SYRINGE IV PRN (23:45)
[2021-02-14] MEDS ORDERED: GLUCAGON FOR INJ 1 MG VIAL SQ PRN (23:45)
[2021-02-14] MEDS ORDERED: CARBOHYDRATES FOR HYPOGLYCEMIA PO PRN (23:45)
[2021-02-14] MEDS ORDERED: GLUCOSE 10 TABS/TUBE PO PRN (23:45)
[2021-02-14] MEDS ORDERED: GLUCOSE 40% GEL 15 GM TUBE PO PRN (23:45)
[2021-02-15] MEDS ORDERED: INSULIN GLARGINE SOLOSTAR 100 UNITS/ML 3 ML PEN SC ONE
[2021-02-15] MEDS: INSULIN ASPART PER UNIT SC SCH ×5 (00:15→20:21)
[2021-02-15] MEDS: PIPERACILLIN/TAZOBACTAM 4.5 GM in DEXTROSE 5% 100 ML IV SCH ×3 (01:41→17:57)
[2021-02-15 03:52] LABS: iSTAT Art Bld Gas pCO2 Correct 48 mmHg (35-46); iSTAT Art Bld Gas pH Corrected 7.366 (7.35-7.45); iSTAT Arterial Blood Gas HCO3 28 meg/L (19-24); iSTAT Arterial Blood Gas pCO2 48 mmHg (35-46); iSTAT Arterial Blood Gas pH 7.37 (7.35-7.45); iSTAT Arterial Blood Gas pO2 70 mmHg (80-95); iSTAT Arterial Blood Gas pO2 C 71; iSTAT Carbon Dioxide 29 mmol/L (24-31); iSTAT FiO2 70 %; iSTAT Hematocrit 40 % (37-47); iSTAT Hemoglobin 13.6 g/dl (12.0-16.0); iSTAT Potassium 3.8 mmol/L (3.3-5.0); iSTAT Site Art Line; iSTAT Sodium 136 mmol/L (135-144)
[2021-02-15 04:16] LABS: Basophils # (auto) 0.03 K/uL (0-0.2); Basophils % (auto) 0.2 %; Hematocrit (blood only) 41.6 % (37-47); Hemoglobin 13.7 g/dL (12.0-16.0); Immature Granulocytes # (auto) 0.16 K/uL (0.00-0.02); Immature Granulocytes % (auto) 0.8 %; Lymphocytes # (auto) 1.74 K/uL (1.2-3.4); Lymphocytes % (auto) 9.1 %; Mean Corpuscular Hemoglobin 29.5 pg (25-34); Mean Corpuscular Hgb Conc 32.9 g/dL (32-36); Mean Corpuscular Volume 89.5 fL (80-100); Monocytes # (auto) 1.18 K/uL (0.11-0.59); Monocytes % (auto) 6.2 %; Neutrophils # (auto) 15.98 K/uL (1.4-6.5); Neutrophils % (auto) 83.7 %; Nucleated RBC # (auto) 0.06 K/uL (0-0); Nucleated RBC % (auto) 0.3 %; Platelet Count 258 K/uL (130-400); RDW Coefficient of Variation 13.3 % (11.5-14.5); RDW Standard Deviation 43.7 fL (36.4-46.3); Red Blood Count 4.65 M/uL (4.2-5.4); White Blood Count 19.09 K/uL (4.8-10.8)
[2021-02-15 04:35] LABS: Albumin Level 2.4 gm/dl (3.4-5.0); BUN Creatinine Ratio 16.4 (10-20); Calcium 8.5 mg/dl (8.5-10.1); Est GFR (African American) 28.6 ml/min; Est GFR (Non-African American) 24.7 ml/min; Magnesium 2.7 mg/dl (1.8-2.4); Potassium 3.8 mmol/L (3.5-5.1)
[2021-02-15 04:41] LABS: INR 1.2 (0.9-1.1); Prothrombin Time 11.9 Seconds (9.0-12.0)
[2021-02-15 04:53] LABS: Albumin Globulin Ratio 0.5 (0.9-2); Bilirubin,Total 1.4 mg/dl (0.2-1); Globulin 4.5 gm/dl (2.5-4.0); Total Protein 6.9 gm/dl (6.4-8.2); Troponin I 5.46 ng/ml (0-0.045)
[2021-02-15] MEDS: HEPARIN SODIUM/DEXTROSE 25,000 UNITS/500 ML BAG IV SCH ×2 (05:15→22:20)
[2021-02-15] MEDS: propofoL 1,000 MG/100 ML VIAL IV SCH ×4 (05:15→22:21)
--- NOTE | 2021-02-15 07:33 | XRay Report ---
XR chest 1V portable CLINICAL HISTORY: Respiratory failure. COMPARISON STUDY: Chest CT and chest radiograph February 14, 2021. FINDINGS: Tip of endotracheal tube is 3.3 cm above the xander. Tip of nasogastric tube is not well vi sualized on this exam but is at least within the distal esophagus. There is no pneumothorax or pleura l effusion. Cardiomediastinal silhouette is stable. Multifocal bilateral airspace opacities persist. IMPRESSION: 1. Tip of endotracheal tube 3.1 cm above the xander. 2. Persistent bilateral airspace opacities suggestive of viral pneumonia. ACT 112: Negative or not required by law. Electronically signed by: Avtar Liu M.D. 02/15/2021 7:32 AM
[2021-02-15] MEDS: FAMOTIDINE 20 MG in SYRINGE 3 ML IV SCH (10:36)
[2021-02-15] MEDS ORDERED: PEPTAMEN INTENSE VHP 1.0 CAL 1,000 ML BAG OG SCH (10:45)
--- NOTE | 2021-02-15 11:06 | Critical Care Progress Note ---
Date of Service February 15, 2021 Assessment & Plan (1) Acute respiratory failure with hypoxia: (2) Pneumonia due to 2019 novel coronavirus: (3) Pulmonary embolism: (4) Acute CVA (cerebrovascular accident): Plan: ICU CONSULT NOTE FORMAT: Reason Critically Ill: Hypoxic respiratory failure secondary to COVID 19 and pulmonary embolism with right heart strain and NSTEMI Neuro - --Acute to subacute CVA Last known well not known, 2.4 cm acute/subacute right frontal periventricular and unknown chronicity of the left cerebellar hemispheric CVA. Not a TPA candidate for ischemic stroke follow closely neurologic exams for evaluation of hemorrhagic conversion. --ICU sedation Keep RASS -1 Cardiac - --NSTEMI, elevated Troponin, elevated RVSP with pulmonary embolism Follow hemodyanmics closely- may need inotropic support if hemodynamically unstable. Troponin I at 6.[address] depression in inferior/anterior, Lacate of 0.7. ECHO completed however bubble study was not completed. EF of left ventricle was maintained at 70%, but severely dilated RV with septal flattening. Patient is not an ECMO candidate secondary to age and morbid obesity. If she required hemodynamic/inotropic support would use epinepherine. Respiratory - --Vent dependent respiratory failure Secondary to acute hypoxic respiratory failure from multilobar COVID-19 pneumonia with PE Covid-19 service for approximately 4 weeks. She is on a candidate for remdesivir. COVID-19 PCR positive Procalcitonin 0.91 Nasal MRSA negative Continue with lung protective ventilation High PEEP, low tidal volume to keep Plateau < 30 with permissive hypercapnea if need be. Monitor ABGs --Acute PE Continue with heparin Not a candidate for TPA given acute/subacute infarct GI - --Transaminitis Likely from shock that the patient presented with Rakesh is trending down Continue to monitor RENAL/LYTES - --YIMI on CKD Monitor BUNs/creatinine Avoid nephrotoxic medication -no issues ENDO - ICU hypoglycemia protocol HEME - No acute needs ID - Given elevated procalcitonin we will continue with empiric Zosyn for the time being Nasal MRSA negative --Prophylaxis VTE: Heparin drip GI: Pepcid Lines: Right femoral, left radial, positive Pena Diet: Tube feeds Plan: In/out: +1905, urine output 555 AB.37/48/70 on PEEP of 14, 70% Patient was double triggering at the time of examination I changed to PRVC and she was doing well on it. I went down on FiO2 to 50%. We will try to titrate down more to keep saturation between 88-92% Patient creatinine went up a little bit today it is 2. Monitor BUNs/creatinine T bili is trending down. Tropes are also trending down. Patient does have dirty looking urine which was negative for leukocyte esterase or bacteria. Continue with empiric antibiotics for at least 48 hours and then r eassess. I have personally spent 42 minutes of critical care time in the direct managem ent of this patient. This is a life/limb threatening event. This includes time spent evaluating patient, direct bedside care, chart review, placing orders, interpretation of diagnostic studies, discussion with consultants, patient, and family members, as well as other required patient management activities. This time is exclusive of all separately billable procedures, and teaching time and separate from and in addition to any other critical care service time. Thank you for allowing us to participate in the care of this patient. Please refer to my attending physician's documentation for any further recommendations. Admission and Anticipated Discharge Date Admission Date: February 14, 2021 Subjective Patient seen and examined at bedside. No distress. Patient is on propofol and fentanyl She was double triggering the vent. I changed the settings to PRVC She has saturation was 95% on 60% FiO2 and PEEP of 10. Has been afebrile. Review of Systems Review of Systems: Unobtainable due to endotracheal tube Physical Exam Physical Exam: Constitutional: No acute distress HEENT: PERRLA, positive ETT Respiratory system: Decreased air entry bilaterally, no wheeze, no rhonchi, no crackles CVS: S1-S2 positive, no murmurs or gallops Abdomen: Soft, nontender, nondistended, positive bowel sounds x4, obese Extremities: +2 pulses bilaterally radialis/ dorsalis pedis, no cyanosis, no edema Neuro: Intubated, breathing over the vent Psych: Unable to assess G/U: Positive Pena Skin: no rashes, warm and dry Lymphatic: no cervical or axillary lymphadenopathy Results & Data Results & Data ([facility]) Vital Signs (Past 12 Hours) Vital Signs Temp Pulse Resp Pulse Ox 02/15/21 07:50 70 26 H 95 02/15/21 06:15 37.0 C 71 16 93 02/15/21 06:00 37.0 C 72 17 94 02/15/21 05:45 37.0 C 73 17 94 02/15/21 05:30 37.1 C 72 22 93 02/15/21 05:00 37.1 C 74 16 93 02/15/21 04:30 37.2 C 75 16 94 02/15/21 04:01 76 25 H 94 02/15/21 04:00 37.4 C 77 19 94 02/15/21 03:30 37.2 C 78 18 92 02/15/21 03:00 37.6 C H 78 15 93 02/15/21 02:30 37.6 C H 79 16 93 02/15/21 02:00 37.6 C H 78 16 92 02/15/21 01:30 37.6 C H 79 17 92 02/15/21 01:00 37.6 C H 79 16 91 02/15/21 00:45 37.6 C H 80 16 91 02/15/21 00:30 37.6 C H 80 16 91 02/15/21 00:15 37.6 C H 81 16 91 02/15/21 00:00 37.7 C H 81 16 91 02/14/21 23:48 83 27 H 91 02/14/21 23:45 37.7 C H 82 16 92 02/14/21 23:30 37.7 C H 83 16 91 02/14/21 23:00 37.7 C H 85 16 91 02/15/21 04:05 02/15/21 04:05 Coding Level of Care Code Critical Care 1st 30-74 mins Diagnoses Acute respiratory failure with hypoxia J96.01 Pneumonia due to 2019 novel coronavirus U07.1; J12.82 Pulmonary embolism I26.99 Acute cor pulmonale presence: unspecified Chronicity: acute Pulmonary embolism type: unspecified Acute CVA (cerebrovascular accident) I63.9 Time Spent (min) 42 (1) Pulmonary embolism Acute cor pulmonale presence: unspecified Chronicity: acute Pulmonary embolism type: unspecified Qualified Code(s): I26.99 - Other pulmonary embolism without acute cor pulmonale
[2021-02-15 11:28] LABS: iSTAT Arterial Blood Gas HCO3 26 meg/L (19-24); iSTAT Arterial Blood Gas pCO2 53 mmHg (35-46); iSTAT Arterial Blood Gas pH 7.29 (7.35-7.45); iSTAT Arterial Blood Gas pO2 72 mmHg (80-95); iSTAT Carbon Dioxide 27 mmol/L (24-31); iSTAT Sample Type Arterial
--- NOTE | 2021-02-15 12:32 | CT Scan Report ---
CT head/brain wo con CLINICAL HISTORY: 65 years-old Female with evaluate ischemic strokes for hemorrhagic conversi. Acute strokelike symptoms. TECHNIQUE: Multiple axial CT images of the head were obtained without contrast. A dose lowering tech nique was utilized adhering to the principles of ALARA. CT DOSE: 638.56 mGycm COMPARISON: None. FINDINGS: Acute infarct within the right frontal periventricular distribution, Adolfo basal ganglia and internal capsule redemonstrated. New areas of ill-defined decreased attenuation with blurring of the gonzalez-whi te interface also noted within the posterior parietal lobes near the vertex measuring up to 3.4 cm on the right. 2.8 cm acute appearing infarct of the right occipital lobe. Small acute appearing infarct of the left cerebellar hemisphere redemonstrated. No acute intracranial hemorrhage, midline shift or hydrocephalus. The calvarium is intact. The paranasal sinuses, mastoid air cells, and middle ear cavities are clear . IMPRESSION: 1. No acute intracranial hemorrhage or midline shift. 2. Numerous multi vascular territory of acute infarcts are noted as above, several of which appear to be new from yesterday's study. A proximal embolic phenomenon should be considered. Correlation with echocardiogram if not already conducted is recommended. ACT 112: Negative or not required by law. The above report was generated using voice recognition software. It may contain grammatical, syntax o r spelling errors. Electronically signed by: Jake Skelton M.D. 02/15/2021 12:30 PM
--- NOTE | 2021-02-15 13:06 | Hospitalist Progress Note ---
Date of Service February 15, 2021 Assessment & Plan (1) Pneumonia due to 2019 novel coronavirus: Plan: First symptoms: ~01/27/2021 First tested: 02/14/2021 in our system Vaccinated: No Admission date: 02/14/2021 Admission O2 requirement: Intubated for airway protection Admission CRP: 17.4 Dexamethasone course started: 02/14/2021; End date: 02/23/2021 Remdesivir started: N/a Remdesivir contraindication: >7 days symptoms Tocilizumab given/baricitinib started: N/a Tocilizumab/baricitinib contraindication: Elevated liver enzymes Antibiotics: Zosyn (started 02/14) Breathing treatments: None Presently requiring intubation for confusion. Settings this AM were 2 0/390/10/50% with Pp: 15 cmH20 and 93% SpO2. (2) Pulmonary embolism: Plan: CTA chest on 02/14 showed extensive bilateral pulmonary emboli with right heart strain. - Heparin standard bolus and drip (3) Acute respiratory failure with hypoxia: Plan: Secondary to bilateral PEs +/- COVID-19 pneumonia. (4) Acute CVA (cerebrovascular accident): Plan: CT head on admission showed a "2.4 cm acute versus subacute appearing infarct is noted within the right frontal periventricular distribution involving the adjacent basal ganglia and internal capsule." - Recommend CT head and neck angiograms & MRI as able - TTE with bubble study pending. - Neurology consult pending - Lipids and HbA1C with AM labs (5) Acute non-ST elevation myocardial infarction (NSTEMI): Plan: ST elevation in inferior and right precordial leads suspect to be secondary to PEs rather than OK therefore director of cath lab deferred per ER discussion with cardiology. - TTE with preserved LV function and suspected secondary to pulmonary embolism and right heart strain - Troponin peaked at 7.3 on 02/14; now downtrending. - Aspirin and statin deferred to ICU team Admission and Anticipated Discharge Date Admission Date: February 14, 2021 Subjective Intubated and sedated. Review of Systems Review of Systems: Unobtainable due to cognitive status and Unobtainable due to endotracheal tube Physical Exam Constitutional: + acute distress and + lethargic Eyes: no eyelid abnormality and no conjunctival abnormality ENMT: external ear and nose normal, oropharynx normal Neck: trachea midline, no thyromegaly normal visual inspection Respiratory: normal respiratory effort, lungs clear to auscultation Auscultation: + rhonchi Cardiovascular: RRR, no murmur, no edema Gastrointestinal (Abdomen): Inspection/Auscultation: abdomen normal to inspection; abdomen not distended Skin: no rashes, warm and dry Neurologic: + does not move all extremities and + not awake Psychiatric: Orientation: + not alert and + not oriented to person Results & Data Results & Data ([facility]) Vital Signs (Past 12 Hours) Vital Signs Temp Pulse Resp Pulse Ox 02/15/21 12:33 37.1 C 72 16 02/15/21 12:00 37.0 C 67 20 93 02/15/21 11:30 37.0 C 70 19 92 02/15/21 11:00 37.0 C 68 21 94 02/15/21 10:50 68 25 H 94 02/15/21 10:30 36.7 C 68 22 94 02/15/21 10:00 36.8 C 69 23 93 02/15/21 09:30 36.9 C 69 19 93 02/15/21 09:00 36.9 C 69 14 94 02/15/21 08:30 36.9 C 71 23 92 02/15/21 08:00 36.8 C 70 16 91 02/15/21 07:50 70 26 H 95 02/15/21 07:30 36.5 C 70 15 94 02/15/21 07:00 36.8 C 71 17 94 02/15/21 06:15 37.0 C 71 16 93 02/15/21 06:00 37.0 C 72 17 94 02/15/21 05:45 37.0 C 73 17 94 02/15/21 05:30 37.1 C 72 22 93 02/15/21 05:00 37.1 C 74 16 93 02/15/21 04:30 37.2 C 75 16 94 02/15/21 04:01 76 25 H 94 02/15/21 04:00 37.4 C 77 19 94 02/15/21 03:30 37.2 C 78 18 92 02/15/21 03:00 37.6 C H 78 15 93 02/15/21 02:30 37.6 C H 79 16 93 02/15/21 02:00 37.6 C H 78 16 92 02/15/21 01:30 37.6 C H 79 17 92 02/15/21 01:00 37.6 C H 79 16 91 PG Care Time/CCT Total # of Minutes Spent Total Time Spent with Patient: Total time spent is greater than 50% in coordination of care (as documented) at patient's floor/unit and/or counseling patient: Coding Level of Care Code 48634 Subseq Hosp Care Lvl 3 Diagnoses Acute respiratory failure with hypoxia J96.01 Pneumonia due to 2019 novel coronavirus U07.1; J12.82 Pulmonary embolism I26.99 Acute cor pulmonale presence: unspecified Chronicity: acute Pulmonary embolism type: unspecified Acute CVA (cerebrovascular accident) I63.9 Acute non-ST elevation myocardial infarction (NSTEMI) I21.4 (1) Pulmonary embolism Acute cor pulmonale presence: unspecified Chronicity: acute Pulmonary embolism type: unspecified Qualified Code(s): I26.99 - Other pulmonary embolism without acute cor pulmonale
--- NOTE | 2021-02-15 13:30 | Pharmacy Report ---
Pharmacy Glycemic Short Note 2 - Date of Service February 15, 2021 - Glycemic Short BSG Results (Last 24 hours): 02/14/21 02/14/21 02/14/21 16:58 17:06 22:44 Glucose 190 H POC Glucose 186 H 174 H 02/15/21 02/15/21 02/15/21 00:14 04:05 05:23 Glucose 175 H POC Glucose 165 H 168 H 02/15/21 11:49 Glucose POC Glucose 157 H OUTPATIENT ANTIDIABETIC REGIMEN: * N/A * A1C: pending ASSESSMENT: * Patient admitted with COVID pneumonia experiencing some mild hyperglycemia. Patient was started on IV dexamethasone and initiated on Tube feeds. Will increase to q4 novolog and monitor closely for steroid induced hyperglycemia now that TFS have been initiated. PLAN FOR INPATIENT GLYCEMIC CONTROL: * Hold outpatient oral diabetes medications * Basal insulin * none at this time * Bolus insulin * NovoLog per scale q4h * Goal Range: Low 120 mg/dL - High 150 mg/dL * Correction Factor: 20 mg/dL/unit * Nutritional / Prandial insulin per carb ratio of 1 unit per 8 grams CHO consumed PLAN FOR DISCHARGE: * TBD
[2021-02-15] MEDS: fentaNYL citrate 2,500 MCG/250 ML BAG IV SCH (14:12)
[2021-02-15] MEDS: TUBE FEEDING WATER FLUSH OG SCH ×3 (14:12→21:22)
--- NOTE | 2021-02-15 15:17 | Ultrasound Report ---
US carotid doppler BI CLINICAL HISTORY: Reported history of multiple infarcts. Patient on ventilator.. COMPARISON: None. TECHNIQUE: Carrillo scale, Doppler spectral analysis, and color imaging was performed. Stenosis assessmen t by velocity criteria. FINDINGS: This is a limited examination due to the patient being on ventilator and patient positionin g Right CCA velocity (cm/s): 52 Right ICA velocity (cm/s): 56 Right ICA/CCA ratio: 1.1 Right vertebral arterial flow: Antegrade. Right findings: There is no significant atherosclerotic plaquing noted on the right. Left CCA velocity (cm/s): 70 Left ICA velocity (cm/s): 47 Left ICA/CCA ratio: 0.7 Left vertebral arterial flow: Unable to visualize due to patient positioning Left findings: There is no significant atherosclerotic plaquing noted on the left. IMPRESSION: No significant atherosclerotic plaquing or significant flow limiting stenoses noted by v elocity criteria bilaterally. ACT 112: Negative or not required by law. Electronically signed by: Kaleb Martin M.D. 02/15/2021 3:15 PM
[2021-02-15] MEDS: dexAMETHasone 6 MG in SYRINGE 0 ML IV SCH (17:57)
[2021-02-16] MEDS: TUBE FEEDING WATER FLUSH OG SCH ×5 (00:05→11:23)
[2021-02-16] MEDS: INSULIN ASPART PER UNIT SC SCH ×6 (00:10→21:25)
[2021-02-16] MEDS: PIPERACILLIN/TAZOBACTAM 4.5 GM in DEXTROSE 5% 100 ML IV SCH ×3 (01:46→18:24)
[2021-02-16 04:51] LABS: iSTAT Arterial Blood Gas HCO3 31 meg/L (19-24); iSTAT Arterial Blood Gas pCO2 47 mmHg (35-46); iSTAT Arterial Blood Gas pH 7.42 (7.35-7.45); iSTAT Arterial Blood Gas pO2 69 mmHg (80-95); iSTAT Carbon Dioxide 32 mmol/L (24-31); iSTAT Site L Radial
[2021-02-16 05:23] LABS: Basophils # (auto) 0.02 K/uL (0-0.2); Basophils % (auto) 0.1 %; Hematocrit (blood only) 37.1 % (37-47); Hemoglobin 12.2 g/dL (12.0-16.0); Immature Granulocytes % (auto) 0.6 %; Lymphocytes # (auto) 1.05 K/uL (1.2-3.4); Lymphocytes % (auto) 6.2 %; Mean Corpuscular Hgb Conc 32.9 g/dL (32-36); Mean Corpuscular Volume 88.3 fL (80-100); Mean Platelet Volume 11.5 fL (7.4-10.4); Monocytes # (auto) 1.26 K/uL (0.11-0.59); Monocytes % (auto) 7.4 %; Neutrophils % (auto) 85.7 %; Nucleated RBC # (auto) 0.15 K/uL (0-0); Nucleated RBC % (auto) 0.9 %; Platelet Count 262 K/uL (130-400); RDW Coefficient of Variation 12.9 % (11.5-14.5); RDW Standard Deviation 41.8 fL (36.4-46.3); White Blood Count 16.93 K/uL (4.8-10.8)
[2021-02-16 05:39] LABS: INR 1.1 (0.9-1.1); Partial Thromboplastin Ratio 1.3; Partial Thromboplastin Time 35.4 Seconds (21.0-31.0); Prothrombin Time 10.8 Seconds (9.0-12.0)
[2021-02-16 05:46] LABS: Phosphorus 4.6 mg/dl (2.5-4.9)
[2021-02-16 05:47] LABS: Magnesium 2.8 mg/dl (1.8-2.4)
[2021-02-16] MEDS ORDERED: HEPARIN SOD (PORCINE) 1000 UNIT/ML IV ONE (06:00)
[2021-02-16] MEDS: HEPARIN SODIUM/DEXTROSE 25,000 UNITS/500 ML BAG IV SCH ×4 (06:07→15:30)
[2021-02-16 07:28] LABS: Estimated Average Glucose 134 mg/dl; Hemoglobin A1C 6.3 % (4.5-5.6)
--- NOTE | 2021-02-16 07:42 | XRay Report ---
XR chest 1V portable HISTORY: 65 years-old Female Resp failure acute respiratory failure COMPARISON: Chest radiograph 02/15/2021 TECHNIQUE: Portable AP view of the chest FINDINGS: Cardiac silhouette is enlarged. Endotracheal tube overlies the midline, 3.3 cm superior to the xander . Enteric tube courses below the diaphragm outside the naetk-fv-alix. No pneumothorax or large pleura l effusion. Interstitial coarsening with patchy multifocal bilateral airspace opacities have not sign ificantly changed. Bones appear grossly intact. IMPRESSION: 1. Lines and tubes as above. 2. No significant change of the bilateral airspace opacities suggestive of viral pneumonia. ACT 112: Negative or not required by law. The above report was generated using voice recognition software. It may contain grammatical, syntax o r spelling errors. Electronically signed by: Jake Skelton M.D. 02/16/2021 7:41 AM
[2021-02-16] MEDS ORDERED: INSULIN HUMAN NPH SC SCH (09:00)
[2021-02-16] MEDS: MULTI VIT W/MINERALS LIQUID 15 ML UDP PO SCH (09:02)
[2021-02-16] MEDS: FAMOTIDINE 20 MG in SYRINGE 3 ML IV SCH (09:02)
[2021-02-16 09:25] LABS: BUN Creatinine Ratio 26.2 (10-20); Calcium 8.6 mg/dl (8.5-10.1); Creatinine Clr Calc Pharmacy 64.6 ml/min; Est GFR (Non-African American) 40.6 ml/min; Potassium 3.3 mmol/L (3.5-5.1)
--- NOTE | 2021-02-16 10:03 | XCELERA ---
[id number]
[2021-02-16] MEDS ORDERED: hydrALAZINE HCL 20 MG/ML VIAL IV PRN (10:25)
[2021-02-16] MEDS ORDERED: hydrALAZINE HCL 20 MG/ML VIAL ONE (10:30)
[2021-02-16] MEDS: propofoL 1,000 MG/100 ML VIAL IV SCH ×2 (10:34→21:24)
[2021-02-16] MEDS: POTASSIUM CHLORIDE / WTR 20 MEQ/100 ML PLCT IV SCH ×2 (11:23→13:48)
--- NOTE | 2021-02-16 11:35 | Critical Care Progress Note ---
Date of Service February 16, 2021 Assessment & Plan (1) Acute respiratory failure with hypoxia: (2) Pneumonia due to 2019 novel coronavirus: (3) Pulmonary embolism: (4) Acute CVA (cerebrovascular accident): Plan: ICU CONSULT NOTE FORMAT: Reason Critically Ill: Hypoxic respiratory failure secondary to COVID 19 and pulmonary embolism with right heart strain and NSTEMI Neuro - --Acute to subacute CVA Last known well not known, 2.4 cm acute/subacute right frontal periventricular and unknown chronicity of the left cerebellar hemispheric CVA. Not a TPA candidate for ischemic stroke follow closely neurologic exams for evaluation of hemorrhagic conversion. Patient does have right to left shunt appreciated on the limited 2D echo done 02/16/2021 --ICU sedation Keep RASS -1 Cardiac - --NSTEMI, elevated Troponin, elevated RVSP with pulmonary embolism Follow hemodyanmics closely- may need inotropic support if hemodynamically un stable. Troponin I at 6.[address] depression in inferior/anterior, Lacate of 0.7. ECHO completed however bubble study was not completed. EF of left ventricle was maintained at 70%, but severely dilated RV with septal flattening. Patient is not an ECMO candidate secondary to age and morbid obesity. If she required hemodynamic/inotropic support would use epinepherine. --Significant interatrial shunt right to left Appreciated 2D echo 02/16/2021 Respiratory - --Vent dependent respiratory failure Secondary to acute hypoxic respiratory failure from multilobar COVID-19 pneumonia with PE Covid-19 service for approximately 4 weeks. She is on a candidate for remdesivir. COVID-19 PCR positive Procalcitonin 0.91 Nasal MRSA negative Continue with lung protective ventilation High PEEP, low tidal volume to keep Plateau < 30 with permissive hypercapnea if need be. Monitor ABGs --Acute PE Continue with heparin Not a candidate for TPA given acute/subacute infarct GI - --Transaminitis Likely from shock that the patient presented with Rakesh is trending down Continue to monitor RENAL/LYTES - --YIMI on CKD Improving Monitor BUNs/creatinine Avoid nephrotoxic medication -no issues ENDO - ICU hypoglycemia protocol HEME - No acute needs ID - Sputum culture growing staph species. Nasal MRSA was negative continue with Zosyn Elevated procalcitonin --Prophylaxis VTE: Heparin drip GI: Pepcid Lines: Right femoral, left radial, positive Pena Diet: Tube feeds Plan: In/out: +1 L, urine output 935 AB.42/47/69 on PEEP of 8, 40% Continue with antibiotics for 5 days Patient is following commands today she is on minimal ventilator support We will do SBT. If she is successful we will try to extubate the patient Hypokalemia being replaced I have personally spent 38 minutes of critical care time in the direct management of this patient. This is a life/limb threatening event. This includes time spent evaluating patient, direct bedside care, chart review, placing orders, interpretation of diagnostic studies, discussion with consultants, patient, and family members, as well as other required patient management activities. This time is exclusive of all separately billable procedures, and teaching time and separate from and in addition to any other critical care service time. Thank you for allowing us to participate in the care of this patient. Please refer to my attending physician's documentation for any further recommendations. Admission and Anticipated Discharge Date Admission Date: February 14, 2021 Subjective Patient seen and examined at bedside. No acute distress. No adverse events overnight At time of examination patient was on PEEP of 5 and 40% saturating 91%. She is following commands. She was on fentanyl 75 the time of examination Review of Systems Review of Systems: All systems reviewed & are unremarkable except as noted in Subjective Physical Exam Physical Exam: Constitutional: No acute distress HEENT: PERRLA, positive ETT Respiratory system: Decreased air entry bilaterally, no wheeze, no rhonchi, no crackles CVS: S1-S2 positive, no murmurs or gallops Abdomen: Soft, nontender, nondistended, positive bowel sounds x4, obese Extremities: +2 pulses bilaterally radialis/ dorsalis pedis, no cyanosis, no edema Neuro: Intubated, breathing over the vent, following commands Psych: Unable to assess G/U: Positive Pena Skin: no rashes, warm and dry Lymphatic: no cervical or axillary lymphadenopathy Results & Data Results & Data ([facility]) Vital Signs (Past 12 Hours) Vital Signs Temp Pulse Resp Pulse Ox 02/16/21 11:13 86 19 93 02/16/21 08:00 68 02/16/21 07:57 70 24 94 02/16/21 06:00 36.6 C 56 L 20 92 02/16/21 05:00 36.6 C 58 L 20 91 02/16/21 04:00 36.7 C 58 L 20 92 02/16/21 03:30 59 L 22 92 02/16/21 03:00 36.7 C 59 L 19 92 02/16/21 02:00 36.7 C 61 19 92 02/16/21 01:00 36.8 C 68 21 90 02/16/21 00:00 36.8 C 62 20 92 02/16/21 05:01 02/16/21 07:20 Coding Level of Care Code Critical Care 1st 30-74 mins Diagnoses Acute respiratory failure with hypoxia J96.01 Pneumonia due to 2019 novel coronavirus U07.1; J12.82 Pulmonary embolism I26.99 Acute cor pulmonale presence: unspecified Chronicity: acute Pulmonary embolism type: unspecified Acute CVA (cerebrovascular accident) I63.9 Time Spent (min) 38 (1) Pulmonary embolism Acute cor pulmonale presence: unspecified Chronicity: acute Pulmonary embolism type: unspecified Qualified Code(s): I26.99 - Other pulmonary embolism without acute cor pulmonale
--- NOTE | 2021-02-16 12:20 | Hospitalist Progress Note ---
Date of Service February 16, 2021 Assessment & Plan (1) Pneumonia due to 2019 novel coronavirus: Plan: First symptoms: ~01/27/2021 First tested: 02/14/2021 in our system Vaccinated: No Admission date: 02/14/2021 Admission O2 requirement: Intubated for airway protection Admission CRP: 17.4 Dexamethasone course started: 02/14/2021; End date: 02/23/2021 Remdesivir started: N/a Remdesivir contraindication: >7 days symptoms Tocilizumab given/baricitinib started: N/a Tocilizumab/baricitinib contraindication: Elevated liver enzymes Antibiotics: Zosyn (started 02/14) Breathing treatments: None Presently still intubated, but settings improving (PEEP 5, FiO2 40%). Weaning sedation. Breathing trials per ICU team. (2) Pulmonary embolism: Plan: CTA chest on 02/14 showed extensive bilateral pulmonary emboli with right heart strain. With acute cor pulmonale. - Heparin standard bolus and drip (3) Acute respiratory failure with hypoxia: Plan: Secondary to bilateral PEs +/- COVID-19 pneumonia. (4) Acute CVA (cerebrovascular accident): Plan: CT head on admission showed a "2.4 cm acute versus subacute appearing infarct is noted within the right frontal periventricular distribution involving the adjacent basal ganglia and internal capsule." - Recommend CT head and neck angiograms & MRI as able - TTE with bubble study on 02/16 showed significant R -> L inter-atrial shunt. - Neurology consult pending - A1c of 6.3% this admission. - Lipids pending. (5) Acute non-ST elevation myocardial infarction (NSTEMI): Plan: ST elevation in inferior and right precordial leads suspect to be secondary to PEs rather than CT therefore tag and label cutter deferred per ER discussion with cardiology. - TTE with preserved LV function and suspected secondary to pulmonary embolism and right heart strain - Troponin peaked at 7.3 on 02/14; now downtrending. - Aspirin and statin deferred to ICU team Admission and Anticipated Discharge Date Admission Date: February 14, 2021 Subjective Following some commands, but not answering questions. Review of Systems Review of Systems: Unobtainable due to endotracheal tube Physical Exam Constitutional: + acute distress and + lethargic Eyes: no eyelid abnormality and no conjunctival abnormality ENMT: external ear and nose normal, oropharynx normal Neck: trachea midline, no thyromegaly normal visual inspection Respiratory: normal respiratory effort, lungs clear to auscultation Auscultation: + rhonchi Cardiovascular: RRR, no murmur, no edema Gastrointestinal (Abdomen): Inspection/Auscultation: abdomen normal to inspection; abdomen not distended Skin: no rashes, warm and dry Neurologic: moves all extremities and awake Psychiatric: Orientation: + not alert and + not oriented to person Results & Data Results & Data ([facility]) Vital Signs (Past 12 Hours) Vital Signs Temp Pulse Resp Pulse Ox 02/16/21 12:00 93 H 28 H 90 02/16/21 11:13 86 19 93 02/16/21 11:00 90 23 94 02/16/21 10:00 36.9 C 70 14 92 02/16/21 09:00 36.9 C 66 10 L 91 02/16/21 08:00 36.9 C 72 20 92 02/16/21 07:57 70 24 94 02/16/21 07:00 36.7 C 61 18 92 02/16/21 06:00 36.6 C 56 L 20 92 02/16/21 05:00 36.6 C 58 L 20 91 02/16/21 04:00 36.7 C 58 L 20 92 02/16/21 03:30 59 L 22 92 02/16/21 03:00 36.7 C 59 L 19 92 02/16/21 02:00 36.7 C 61 19 92 02/16/21 01:00 36.8 C 68 21 90 PG Care Time/CCT Total # of Minutes Spent Total Time Spent with Patient: Total time spent is greater than 50% in coordination of care (as documented) at patient's floor/unit and/or counseling patient: Coding Level of Care Code 40950 Subseq Hosp Care Lvl 3 Diagnoses Pneumonia due to 2019 novel coronavirus U07.1; J12.82 Pulmonary embolism I26.99 Acute cor pulmonale presence: unspecified Chronicity: acute Pulmonary embolism type: unspecified Acute respiratory failure with hypoxia J96.01 Acute CVA (cerebrovascular accident) I63.9 Acute non-ST elevation myocardial infarction (NSTEMI) I21.4 (1) Pulmonary embolism Acute cor pulmonale presence: unspecified Chronicity: acute Pulmonary embolism type: unspecified Qualified Code(s): I26.99 - Other pulmonary embolism without acute cor pulmonale
[2021-02-16 12:48] LABS: Partial Thromboplastin Ratio 1.4; Partial Thromboplastin Time 36.7 Seconds (21.0-31.0)
[2021-02-16] MEDS ORDERED: HEPARIN IV BOLUS 3,000 UNITS in SYRINGE 0 ML IV ONE (14:00)
--- NOTE | 2021-02-16 14:23 | Pharmacy Report ---
Pharmacy Glycemic Short Note 2 - Date of Service February 16, 2021 - Glycemic Short BSG Results (Last 24 hours): 02/15/21 02/15/21 02/16/21 16:53 19:48 00:07 Glucose POC Glucose 153 H 172 H 174 H 02/16/21 02/16/21 02/16/21 03:31 07:20 09:08 Glucose 158 H POC Glucose 176 H 155 H 02/16/21 10:36 Glucose POC Glucose 135 H OUTPATIENT ANTIDIABETIC REGIMEN: * N/A * A1C: pending ASSESSMENT: 02/16: * Patient well controlled yesterday however AM BSG trending up. 15 units of NPH was ordered this morning to assist with steroid induced hyperglycemia. Patient was subsequently extubated and thus NPO. Will continue to monitor blood sugars through the day to ensure no downward trend 02/15 * Patient admitted with COVID pneumonia experiencing some mild hyperglycemia. Patient was started on IV dexamethasone and initiated on Tube feeds. Will increase to q4 novolog and monitor closely for steroid induced hyperglycemia now that TFS have been initiated. PLAN FOR INPATIENT GLYCEMIC CONTROL: * Hold outpatient oral diabetes medications * Basal insulin * 15 units NPH SC X 1 this morning * Bolus insulin * NovoLog per scale q4h * Goal Range: Low 120 mg/dL - High 150 mg/dL * Correction Factor: 15 mg/dL/unit * Nutritional / Prandial insulin per carb ratio of 1 unit per 5 grams CHO consumed PLAN FOR DISCHARGE: * TBD
[2021-02-16] MEDS: dexAMETHasone 6 MG in SYRINGE 0 ML IV SCH (18:24)
[2021-02-16 21:20] LABS: Partial Thromboplastin Ratio 1.6; Partial Thromboplastin Time 41.2 Seconds (21.0-31.0)
[2021-02-17] MEDS: INSULIN ASPART PER UNIT SC SCH ×6 (00:24→21:05)
[2021-02-17] MEDS: PIPERACILLIN/TAZOBACTAM 4.5 GM in DEXTROSE 5% 100 ML IV SCH ×2 (02:19→11:33)
[2021-02-17] MEDS: propofoL 1,000 MG/100 ML VIAL IV SCH ×2 (04:07→12:20)
[2021-02-17 05:17] LABS: Basophils # (auto) 0.02 K/uL (0-0.2); Basophils % (auto) 0.1 %; Hematocrit (blood only) 38.9 % (37-47); Hemoglobin 12.9 g/dL (12.0-16.0); Immature Granulocytes # (auto) 0.25 K/uL (0.00-0.02); Immature Granulocytes % (auto) 1.6 %; Lymphocytes # (auto) 1.22 K/uL (1.2-3.4); Lymphocytes % (auto) 7.6 %; Mean Corpuscular Hemoglobin 29.2 pg (25-34); Mean Corpuscular Hgb Conc 33.2 g/dL (32-36); Mean Platelet Volume 11.5 fL (7.4-10.4); Monocytes % (auto) 8.1 %; Neutrophils # (auto) 13.31 K/uL (1.4-6.5); Neutrophils % (auto) 82.6 %; Nucleated RBC # (auto) 0.12 K/uL (0-0); Nucleated RBC % (auto) 0.8 %; Platelet Count 298 K/uL (130-400); RDW Coefficient of Variation 12.9 % (11.5-14.5); RDW Standard Deviation 41.4 fL (36.4-46.3); Red Blood Count 4.42 M/uL (4.2-5.4)
[2021-02-17] MEDS: HEPARIN SODIUM/DEXTROSE 25,000 UNITS/500 ML BAG IV SCH ×4 (05:19→18:17)
[2021-02-17 05:26] LABS: INR 1.1 (0.9-1.1); Partial Thromboplastin Ratio 1.1; Partial Thromboplastin Time 29.7 Seconds (21.0-31.0); Prothrombin Time 11.4 Seconds (9.0-12.0)
[2021-02-17 05:43] LABS: BUN Creatinine Ratio 25.7 (10-20); Calcium 8.5 mg/dl (8.5-10.1); Creatinine Clr Calc Pharmacy 76.2 ml/min; Est GFR (African American) 57.4 ml/min; Est GFR (Non-African American) 49.6 ml/min; Magnesium 2.9 mg/dl (1.8-2.4); Potassium 3.5 mmol/L (3.5-5.1)
[2021-02-17 05:44] LABS: Phosphorus 2.8 mg/dl (2.5-4.9)
[2021-02-17] MEDS ORDERED: POTASSIUM CHLORIDE / WTR 20 MEQ/100 ML PLCT IV SCH (06:15)
[2021-02-17] MEDS ORDERED: HEPARIN IV BOLUS 7,000 UNITS in SYRINGE 0 ML IV ONE (06:45)
[2021-02-17] MEDS ORDERED: POTASSIUM CHLORIDE / WTR 10 MEQ/100 ML PLCT IV SCH (07:45)
[2021-02-17] MEDS ORDERED: POTASSIUM PHOS 3 MMOL/1 ML INFUSION IV STA ×2 (07:54→07:56)
[2021-02-17] MEDS ORDERED: POTASSIUM PHOSPHATE 21 MMOL in SODIUM CHLORIDE 0.9% 500 ML IV ONE (08:15)
[2021-02-17] MEDS: FAMOTIDINE 20 MG in SYRINGE 3 ML IV SCH ×2 (08:38→21:06)
[2021-02-17] MEDS: MULTI VIT W/MINERALS LIQUID 15 ML UDP PO SCH (08:39)
--- NOTE | 2021-02-17 08:50 | Neurology Consultation ---
Date of Consultation February 17, 2021 Assessment & Plan (1) Acute CVA (cerebrovascular accident): Acute/subacute embolic infarcts occurring in the context of COVID-19 infection complicated by acute respiratory failure/COVID-19 pneumonia, pulmonary embolism, right heart strain, right to left shunt on echocardiography, acute non-ST elevation UT. She is currently lethargic, inattentive, generally weak although slightly more so on the right, and has an element of left hemineglect. She does not have an obvious aphasia at this time. Agree with heparin drip as ordered. Would recommend a follow-up noncontrast CT of the head to be completed tomorrow to further exclude hemorrhagic transformation and evaluate evolving infarcts. Would recommend a brain MRI without contrast when patient is stable and able to tolerate this test which should be useful to further define the extent of her ac [place]/subacute infarcts. A CT angiogram of the head and neck should also be performed to further evaluate for intracranial thromboembolic disease. Also, the vertebral artery was not well visualized on carotid ultrasound and an occlusive lesion may not be completely excluded. Going forward, if this patient stabilizes, with no evidence of hemorrhagic complications due to her severe neurologic and cardiopulmonary disease, would transition from IV heparin to an oral anticoagulant if considered medically appropriate. Patient will likely need follow-up echocardiography/cardiac evaluations going fo rward as well to monitor her cardiovascular status including the right to left shunting in the context of her extensive PE/COVID-19 pneumonia. If she does have a persistent, residual significant PFO, then she may require long-term anticoagulation or possibly a consultation for PFO closure if appropriate. Management discussed with Dr. Cope. History of Present Illness Reason for Consultation: Multiple strokes, PFO Requesting Physician: Reyna Neves MD Attending Physician: Harsha Cope MD History of Present Illness The patient is a 65-year-old female who presented to the emergency department on February 14, 2021 with subacute shortness of breath and altered mental status, probably beginning 2 weeks prior. Patient tested positive for COVID-19 infection, [facility] with acute respiratory failure with hypoxia due to pneumonia due to COVID-19 infection, pulmonary embolism, acute stroke, and acute non-ST elevation UT. A CT of the head obtained at presentation was negative for hemorrhage. There was a 2.4 cm acute versus subacute appearing infarct within the right frontal periventricular distribution involving the adjacent basal ganglia and internal capsule as well as an age- indeterminate infarct of the mid to inferior left cerebellar hemispheres. A CTA of the chest revealed extensive bilateral pulmonary emboli with right heart st rain as well as changes compatible with viral pneumonia. The patient had a follow-up CT of the head completed February 15, 2021. There was no evidence of intracranial hemorrhage. There were numerous multi vascular territory acute infarcts, several of which appear new compared with the previous study. Distribution suggestive for embolic phenomena. New areas of infarct identified within the posterior parietal lobes near the vertex on the right and right occipital lobe. I did review the images as well as the radiologist interpretation of these tests. A carotid ultrasound was negative for s ignificant atherosclerotic plaque or hemodynamically significant stenosis. Normal flow within the right vertebral artery noted. Unable to visualize flow within the left vertebral artery potentially due to patient positioning factors. An echocardiogram completed yesterday, February 16, revealed significant right to left interatrial shunt with near complete opacification of the left atrium and ventricle. Poor image quality noted. Mechanism of shunt not visualized. An echocardiogram completed February 14, 2021 have revealed a small underfilled left ventricle, hyperdynamic with an ejection fraction greater than 70%. No obvious wall motion abnormalities. Moderate concentric left ventricular hypertrophy but likely on the basis of left ventricle being underfilled. Right ventricle was severely dilated. Right ventricular free wall severely hypokinetic with flattening of the interventricular septum in systole suggesting right ventricular pressure overload. There was moderate tricuspid regurgitation. Pulmonary artery pressure at least 40 mmHg but probably underestimated per interpreting supervisor pairing and inspecting. This initial echocardiogram was done in the context of cardiac shock/COVID-19 infection/pulmonary embolism. Patient is currently in the ICU, has been extubated, receiving, heparin drip, dexamethasone, piperacillin, tazobactam. Allergies Allergy/AdvReac Type Severity Reaction Status Date / Time No Known Allergies Allergy Verified 02/14/21 12:55 Home Medications Medication Instructions Recorded Confirmed Type No Known Home Medications 02/14/21 02/14/21 History Patient History Medical History History of pneumonia Social History Smoking Status: Never smoker Hx Alcohol Use: No Hx Substance Use: No Preferred Language: Polish Communication Ability: Ventilator Compensation Intern Required: No Beliefs That Will Affect Care: None Current Living Situation: Spouse How many Children do You have: 2 Other Information That Helps Us Care for You: No Feels Safe at Home: Yes Safety Concerns: Feels Safe At This Time Assistive Devices: Oxygen - Continuous Review of Systems Review of Systems: Unobtainable due to cognitive status Exam (Neuro) Physical Exam: The patient is a morbidly obese elderly female. She is lying comfortably in bed in the intensive care unit. She is lethargic and inattentive. She is oriented to person and hospital only. She is able to name objects and repeat phrases. She has a normal comprehension of vocabulary. Memory and other aspects of cognitive functioning cannot be fully evaluated due to patient's lethargy and inattentiveness. Visual bush are grossly full to threat, no obvious hemifield deficit or visual neglect with confrontation testing at this time. Pupils equal round reactive to light and accommodation. Eye movements intact. No nystagmus. Facial sensation intact. There is f lattening of the right nasolabial fold. Hearing grossly intact. Tongue and palate midline. Shoulder shrug intact. Sensation grossly intact in all 4 limbs although full evaluation limited due to lethargy and inattentiveness. She does exhibit some subtle signs of left hemineglect. Deep tendon reflexes are difficult to obtain due to patient's morbid obesity and positioning in bed although generally diminished or reduced. Plantar responses withdrawal bilaterally. Patient unable to perform [id number] or [id number] due to lethargy/generalized weakness. Ophthalmoscopic examination cannot be completed due to poor patient cooperation. Carotid pulses normal bilaterally, no bruits to auscultation. Gait and station cannot be tested. Muscle strength evaluation is limited although patient does display a moderate degree of generalized weakness although slightly greater weakness for the right arm and leg noted. She is able to lift both arms out of the bed against gravity. Muscle tone normal, no flaccidity, spasticity, or rigidity. No atrophy. No abnormal movements, tremors, dyskinesias, or myoclonus observed. Results & Data ([facility]) Vital Signs (Past 12 Hours) Vital Signs Temp Pulse Resp BP Pulse Ox 02/17/21 04:00 148/84 H 96 02/17/21 03:25 80 22 96 02/17/21 03:00 37.2 C 76 20 109/53 L 95 02/17/21 02:48 163/88 H 02/17/21 02:00 96 H 27 H 166/106 H 96 02/17/21 01:00 78 19 179/108 H 95 02/17/21 00:20 86 30 H 96 02/17/21 00:00 96 H 150/73 H 93 02/16/21 23:00 82 25 H 139/74 94 02/16/21 22:00 36.8 C 78 22 151/79 H 94 02/16/21 21:00 36.7 C 78 23 161/81 H 94 Laboratory Results WBC 16.10, hemoglobin 12.9, hematocrit 38.9, platelet count 298, sodium 140, potassium 3.5, BUN 30, creatinine 1.17, glucose 163, hemoglobin A1c 6.3, calcium 8.5, magnesium 2.9, CK 825, troponin 5.460, SARS-CoV-2 PCR positive Diagnostic Findings Initial and follow-up CT of the head as well as carotid Doppler are as described in the history of present illness. Initial and follow-up echocardiography is as described in the history of present illness. An electrocardiogram had revealed sinus tachycardia and ST elevation in the inferior and right precordial leads consistent with patient's known pulmonary embolism secondary to right ventricular strain. There was ST depression potentially consistent with lateral ischemia as well. Sinus tachycardia. 104 bpm. Coding Level of Care Code 31009 Initial In Care Lvl 3 Diagnoses Acute CVA (cerebrovascular accident) I63.9
[2021-02-17] MEDS ORDERED: LANTUS PER UNIT CHARGE SQ ONE (09:00)
--- NOTE | 2021-02-17 10:56 | Critical Care Progress Note ---
Date of Service February 17, 2021 Assessment & Plan (1) Acute respiratory failure with hypoxia: (2) Pneumonia due to 2019 novel coronavirus: (3) Pulmonary embolism: (4) Acute CVA (cerebrovascular accident): Plan: ICU CONSULT NOTE FORMAT: Reason Critically Ill: Hypoxic respiratory failure secondary to COVID 19 and pulmonary embolism with right heart strain and NSTEMI Neuro - --Acute to subacute CVA Last known well not known, 2.4 cm acute/subacute right frontal periventricular and unknown chronicity of the left cerebellar hemispheric CVA. Not a TPA candidate for ischemic stroke follow closely neurologic exams for evaluation of hemorrhagic conversion. Patient does have right to left shunt appreciated on the limited 2D echo done 02/16/2021 --ICU sedation Keep RASS -1 Cardiac - --NSTEMI, elevated Troponin, elevated RVSP with pulmonary embolism Follow hemodyanmics closely Patient is not an ECMO candidate secondary to age and morbid obesity. --Significant interatrial shunt right to left Appreciated 2D echo 02/16/2021 Respiratory - --Vent dependent respiratory failure Secondary to acute hypoxic respiratory failure from multilobar COVID-19 pneumonia with PE Covid-19 service for approximately 4 weeks. She is on a candidate for remdesivir. COVID-19 PCR positive Procalcitonin 0.91 Nasal MRSA negative Continue with lung protective ventilation High PEEP, low tidal volume to keep Plateau < 30 with permissive hypercapnea if need be. Monitor ABGs --Acute PE Continue with heparin Not a candidate for TPA given acute/subacute infarct GI - --Transaminitis Improving Likely from shock that the patient presented with Rakesh is trending down Continue to monitor RENAL/LYTES - --YIMI on CKD Improving Monitor BUNs/creatinine Avoid nephrotoxic medication -no issues ENDO - ICU hypoglycemia protocol HEME - No acute needs ID - Sputum culture growing MSSA. Zosyn changed to Rocephin on 02/17/2021 and to be continued for total of 5 days Elevated procalcitonin --Prophylaxis VTE: Heparin drip GI: Pepcid Lines: Right femoral, left radial, positive Pena Diet: Tube feeds Plan: In/out: -2.1 L, urine output 3575 Patient clinically doing much better. Sputum culture is growing MSSA. I will change Zosyn to Rocephin to be given a total of [address] already ordered. Neurology has been consulted for stroke and PFO. Patient getting K-Phos for potassium. Case discussed with Dr. Cope She is hemodynamically stable to be downgraded to the medical floor Please note the above document was generated using voice recognition software. It may contain grammatical, syntax or spelling errors.Any formal questions or concerns about the content, text or information contained within the body of this dictation should be directly addressed to the provider for clarification. Admission and Anticipated Discharge Date Admission Date: February 14, 2021 Subjective Patient seen and examined at bedside. No acute distress, no adverse overnight She was saturating 94% oxygen nasal cannula. I went down to 4 L. She denied any headache, no nausea vomiting She is following commands. No chest pain. No belly pain. Review of Systems Review of Systems: All systems reviewed & are unremarkable except as noted in Subjective Physical Exam Physical Exam: Constitutional: No acute distress HEENT: PERRLA, EOMI Respiratory system: Decreased air entry bilaterally, no wheeze, no rhonchi, no crackles CVS: S1-S2 positive, no murmurs or gallops Abdomen: Soft, nontender, nondistended, positive bowel sounds x4, obese Extremities: +2 pulses bilaterally radialis/ dorsalis pedis, no cyanosis, no edema, moving all extremities Neuro: Awake alert oriented to self and place Psych: Normal mood and affect G/U: Positive Pena Skin: no rashes, warm and dry Lymphatic: no cervical or axillary lymphadenopathy Results & Data Results & Data ([facility]) Vital Signs (Past 12 Hours) Vital Signs Temp Pulse Resp BP Pulse Ox 02/17/21 09:00 78 31 H 136/76 93 02/17/21 08:00 70 19 136/66 96 02/17/21 07:50 65 22 97 02/17/21 07:00 85 21 132/86 96 02/17/21 04:00 148/84 H 96 02/17/21 03:25 80 22 96 02/17/21 03:00 37.2 C 76 20 109/53 L 95 02/17/21 02:48 163/88 H 02/17/21 02:00 96 H 27 H 166/106 H 96 02/17/21 01:00 78 19 179/108 H 95 02/17/21 00:20 86 30 H 96 02/17/21 00:00 96 H 150/73 H 93 02/16/21 23:00 82 25 H 139/74 94 02/17/21 04:53 02/17/21 04:36 Coding Level of Care Code 07739 Subseq Hosp Care Lvl 3 Diagnoses Acute respiratory failure with hypoxia J96.01 Pneumonia due to 2019 novel coronavirus U07.1; J12.82 Pulmonary embolism I26.99 Acute cor pulmonale presence: unspecified Chronicity: acute Pulmonary embolism type: unspecified Acute CVA (cerebrovascular accident) I63.9 (1) Pulmonary embolism Acute cor pulmonale presence: unspecified Chronicity: acute Pulmonary embolism type: unspecified Qualified Code(s): I26.99 - Other pulmonary embolism without acute cor pulmonale
--- NOTE | 2021-02-17 11:59 | Pharmacy Report ---
Pharmacy Glycemic Short Note 2 - Date of Service February 17, 2021 - Glycemic Short BSG Results (Last 24 hours): 02/16/21 02/16/21 02/17/21 15:36 21:09 00:11 Glucose POC Glucose 141 H 118 H 155 H 02/17/21 02/17/21 02/17/21 04:13 04:36 07:45 Glucose 163 H POC Glucose 155 H 134 H OUTPATIENT ANTIDIABETIC REGIMEN: * N/A * A1C: 6.3 ASSESSMENT: 02/17: * BSGs within largely within goal yesterday. Fasting BSG within goal. * Dexamethasone, heparin (in D5W), and antibiotics continue. Patient extubated- swallow eval today. Patient NPO and tube feeds held. * Given patient extubated and pending swallow eval, plan to decrease basal insulin by~ 50% in the form of Lantus to avoid a peak with NPH. No changes to Novolog. 02/16: * Patient well controlled yesterday however AM BSG trending up. 15 units of NPH was ordered this morning to assist with steroid induced hyperglycemia. Patient was subsequently extubated and thus NPO. Will continue to monitor blood sugars through the day to ensure no downward trend 02/15 * Patient admitted with COVID pneumonia experiencing some mild hyperglycemia. Patient was started on IV dexamethasone and initiated on Tube feeds. Will increase to q4 novolog and monitor closely for steroid induced hyperglycemia now that TFS have been initiated. PLAN FOR INPATIENT GLYCEMIC CONTROL: * Hold outpatient oral diabetes medications * Basal insulin * Lantus 8 units X 1 this morning * Bolus insulin * NovoLog per scale q4h * Goal Range: Low 120 mg/dL - High 150 mg/dL * Correction Factor: 15 mg/dL/unit * Nutritional / Prandial insulin per carb ratio of 1 unit per 5 grams CHO consumed PLAN FOR DISCHARGE: * TBD
[2021-02-17] MEDS: dexAMETHasone 6 MG in SYRINGE 0 ML IV SCH (12:19)
[2021-02-17] MEDS: cefTRIAXone SODIUM 2,000 MG in DEXTROSE 5% 50 ML IV SCH (12:19)
[2021-02-17 13:28] LABS: Partial Thromboplastin Ratio 2.4
[2021-02-17 13:30] LABS: Partial Thromboplastin Time 62.2 Seconds (21.0-31.0)
--- NOTE | 2021-02-17 14:18 | Hospitalist Progress Note ---
Date of Service February 17, 2021 Assessment & Plan (1) Pneumonia due to 2019 novel coronavirus: Plan: First symptoms: ~01/27/2021 First tested: 02/14/2021 in our system Vaccinated: No Admission date: 02/14/2021 Admission O2 requirement: Intubated for airway protection Admission CRP: 17.4 Dexamethasone course started: 02/14/2021; End date: 02/23/2021 Remdesivir started: N/a Remdesivir contraindication: >7 days symptoms Tocilizumab given/baricitinib started: N/a Tocilizumab/baricitinib contraindication: Elevated liver enzymes Antibiotics: Zosyn (started 02/14) -> Ceftriaxone on 02/17 Breathing treatments: None Presently on BiPap. (2) Pulmonary embolism: Plan: CTA chest on 02/14 showed extensive bilateral pulmonary emboli with right heart strain. With acute cor pulmonale. - Heparin standard bolus and drip (3) Acute respiratory failure with hypoxia: Plan: Secondary to bilateral PEs +/- COVID-19 pneumonia. (4) Acute CVA (cerebrovascular accident): Plan: CT head on admission showed a "2.4 cm acute versus subacute appearing infarct is noted within the right frontal periventricular distribution involving the adjacent basal ganglia and internal capsule." - Recommend CT head and neck angiograms & MRI as able - TTE with bubble study on 02/16 showed significant R -> L inter-atrial shunt. - Neurology consult appreciated. - A1c of 6.3% this admission. - Lipids pending. 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 - TTE with preserved LV function and suspected secondary to pulmonary embolism and right heart strain - Troponin peaked at 7.3 on 02/14; now downtrending. - Aspirin and statin deferred to ICU team Admission and Anticipated Discharge Date Admission Date: February 14, 2021 Subjective Very weak today, but responsive. AAOx2. Reports no fevers/chills, chest pain, shortness of breath, abdominal pain, nausea, or vomiting. Physical Exam Constitutional: well developed and cooperative Eyes: EOM intact bilaterally; no eyelid abnormality and no conjunctival abnormality ENMT: external ear and nose normal, oropharynx normal Neck: trachea midline, no thyromegaly normal visual inspection Respiratory: normal respiratory effort, lungs clear to auscultation Auscultation: + rhonchi Cardiovascular: RRR, no murmur, no edema Gastrointestinal (Abdomen): Inspection/Auscultation: abdomen normal to inspection; abdomen not distended Skin: no rashes, warm and dry Neurologic: moves all extremities and awake Psychiatric: Orientation: alert, oriented to person and oriented to place; + not oriented to time Results & Data Results & Data ([facility]) Vital Signs (Past 12 Hours) Vital Signs Temp Pulse Resp BP BP Pulse Ox 02/17/21 13:00 76 20 94 02/17/21 12:30 87 21 90 02/17/21 12:00 36.6 C 87 21 137/98 87 L 02/17/21 11:30 72 21 95 02/17/21 11:00 71 20 155/62 H 93 02/17/21 10:30 74 20 92 02/17/21 10:00 71 20 136/76 92 02/17/21 09:30 77 17 94 02/17/21 09:00 78 31 H 136/76 93 02/17/21 08:00 70 19 136/66 96 02/17/21 07:50 65 22 97 02/17/21 07:00 85 21 132/86 96 02/17/21 04:00 148/84 H 96 02/17/21 03:25 80 22 96 02/17/21 03:00 37.2 C 76 20 109/53 L 95 02/17/21 02:48 163/88 H PG Care Time/CCT Total # of Minutes Spent Total Time Spent with Patient: Total time spent is greater than 50% in coordination of care (as documented) at patient's floor/unit and/or counseling patient: Coding Level of Care Code 61030 Subseq Hosp Care Lvl 2 Diagnoses Pneumonia due to 2019 novel coronavirus U07.1; J12.82 Pulmonary embolism I26.99 Acute cor pulmonale presence: unspecified Chronicity: acute Pulmonary embolism type: unspecified Acute respiratory failure with hypoxia J96.01 Acute CVA (cerebrovascular accident) I63.9 Acute non-ST elevation myocardial infarction (NSTEMI) I21.4 (1) Pulmonary embolism Acute cor pulmonale presence: unspecified Chronicity: acute Pulmonary embolism type: unspecified Qualified Code(s): I26.99 - Other pulmonary embolism without acute cor pulmonale
[2021-02-18] MEDS: INSULIN ASPART PER UNIT SC SCH ×6 (01:07→21:10)
[2021-02-18] MEDS: HEPARIN SODIUM/DEXTROSE 25,000 UNITS/500 ML BAG IV SCH (07:17)
[2021-02-18] MEDS: MULTI VIT W/MINERALS LIQUID 15 ML UDP PO SCH (08:59)
[2021-02-18] MEDS: dexAMETHasone 6 MG in SYRINGE 0 ML IV SCH (08:59)
[2021-02-18] MEDS: FAMOTIDINE 20 MG in SYRINGE 3 ML IV SCH ×2 (08:59→22:25)
[2021-02-18] MEDS ORDERED: INSULIN GLARGINE SOLOSTAR 100 UNITS/ML 3 ML PEN SC SCH (09:00)
--- NOTE | 2021-02-18 09:20 | Neurology Progress Note ---
Date of Service February 18, 2021 Assessment & Plan (1) Acute CVA (cerebrovascular accident): Plan: Acute/subacute embolic infarcts occurring in the context of COVID-19 infection complicated by acute respiratory failure, pneumonia, pulmonary embolism, right heart strain, right to left shunt on echocardiography, and non-ST elevation AK. Patient remains lethargic, inattentive, generally weak, associated right hemiparesis and element of left hemineglect noted as well. Neurological status unchanged compared with yesterday. Plan for follow-up imaging including noncontrast CT of the head to exclude hemorrhagic transformation. Would also like this patient to have a brain MRI completed when stable. Would also consider obtaining CT angiography of the head and neck. Note: The left vertebral artery was not visualized on carotid ultrasound. Continue with heparin drip. Plan on transitioning to an oral anticoagulant going forward. Please see my initial consultation report from yesterday for further details. Admission and Anticipated Discharge Date Admission Date: February 14, 2021 Subjective Follow-up for stroke The patient remains mildly lethargic and inattentive. She continues to have some difficulty moving the right arm. She denies headache or new neurologic symptoms. Continues with treatment for COVID-19 associated pneumonia, pulmonary embolism, right to left shunt on echocardiography, non-ST elevation AK and embolic stroke. Plan for swallowing evaluation and repeat imaging. Review of Systems Eyes: no blind spots and no diplopia Neurologic: + localized weakness and + confusion; no headache(s) Results & Data ([facility]) Vital Signs (Past 12 Hours) Vital Signs Temp Pulse Pulse Resp BP Pulse Ox 02/18/21 04:00 36.5 C 86 26 H 177/77 H 92 02/18/21 00:00 36.8 C 76 64 20 148/[address] of the head from February 15, 2021 and revealed numerous multivascular territory acute infarcts, posterior parietal lobe near the vertex, right occipital lobe, left cerebellar hemisphere. A carotid duplex had revealed atherosclerotic plaquing but no hemodynamically significant stenosis. Echocardiography has revealed significant right to left interatrial shunting. Exam (Neuro) Neurologic: Oriented to:: Person and Place Attention: negative Span Intact or Concentration Intact Speech Fluency: Other (Minimal spontaneous speech output, speech is hypophonic, no gross aphasia.) Fund of Knowledge: Vocabulary Cranial Nerves: Normal II and III, IV, ; Abnorm VII (There is mild flattening of the right nasolabial fold) Motor Strength: Pronator Drift Laterality: Right and Hemiparesis (Very mild right hemiparesis, face and arm greater than leg.) Laterality: Right Coordination: negative Finger-Nose Abnormal (Right) Details: Patient is modestly inattentive. Also exhibits some left hemineglect. Coding Level of Care Code 80089 Subseq Hosp Care Lvl 2 Diagnoses Acute CVA (cerebrovascular accident) I63.9
[2021-02-18 10:03] LABS: INR 1.1 (0.9-1.1); Partial Thromboplastin Ratio 1.9; Prothrombin Time 11.1 Seconds (9.0-12.0)
[2021-02-18 10:26] LABS: BUN Creatinine Ratio 29.5 (10-20); Calcium 8.7 mg/dl (8.5-10.1); Creatinine Clr Calc Pharmacy 111.8 ml/min; Est GFR (African American) 92.3 ml/min; Est GFR (Non-African American) 79.7 ml/min; Phosphorus 2.9 mg/dl (2.5-4.9); Potassium 3.6 mmol/L (3.5-5.1)
[2021-02-18] MEDS ORDERED: OPTIRAY 320 125ml IV ONE (11:08)
--- NOTE | 2021-02-18 11:25 | CT Scan Report ---
CT ANGIOGRAPHY OF THE NECK WITH CONTRAST CLINICAL HISTORY: Stroke. COMPARISON STUDY: Carotid ultrasound February 15, 2021. Chest CT February 14, 2021. Technique: CT angiography of the carotid and vertebral arteries was obtained using Optiray and 3D rec onstruction on an independent workstation. NASCET criteria was utilized. Automated exposure control was utilized for the study. A dose lowering technique was utilized adhering to the principles of ALA RA. CT DOSE: 804.73 mGy.cm Findings: Within visualized portions of the upper chest, note is again made of multiple pulmonary emb neel and airspace opacities which were shown on chest CT of February 14, 2021. No cervical lymphadenop athy is present. There is no acute cervical spine fracture. The bilateral common carotid, cervical in ternal carotid and vertebral arteries are patent. No stenosis within these vessels is noted. There is no dissection. No aneurysm within the neck is noted. CTA of the head will be reported separately. IMPRESSION: 1. Unremarkable CTA of the neck. No stenosis or dissection. 2. Redemonstration of multiple pulmonary emboli and upper lung airspace opacities consistent with vir al pneumonia. These findings were shown on prior chest CT of February 14, 2021. ACT 112: Negative or not required by law. Electronically signed by: Avtar Liu M.D. 02/18/2021 11:24 AM
--- NOTE | 2021-02-18 11:29 | CT Scan Report ---
CT angio head w con CLINICAL HISTORY: 65 years-old Female with Stroke. Acute strokelike symptoms COMPARISON STUDY: CTA neck of same day, head CT 02/15/2021 TECHNIQUE: Following the IV administration of 120 cc of Optiray, CT angiogram of the brain was perfor med from the skull base to the vertex. Images are reviewed in the axial, sagittal, and coronal planes . 3-D MIPS images are created and assessed. IV contrast was administered without complication. All me asurements were obtained according to NASCET criteria. A dose lowering technique was utilized adherin g to the principles of ALARA. FINDINGS: The imaged internal carotid arteries are patent bilaterally. There is mild multifocal luminal narrowi ng of the middle and anterior cerebral arteries. The distal vertebral arteries, basilar and posterior cerebral arteries appear patent. No aneurysm, dissection, high-grade stenosis or arterial occlusion identified. Cerebral venous sinuses are patent. Numerous multi vascular territory acute/subacute appe aring infarcts redemonstrated. The study is mildly motion degraded. Acute appearing small infarct of the right frontal lobe on image 48 within the left frontal parietal distribution on image 44 not defi nitively seen on prior. Numerous dental caries with periapical cysts. Polypoid mucosal thickening of the left maxillary sinus . The mastoid air cells are clear. Unremarkable soft tissues. IMPRESSION: 1. Numerous acute/subacute appearing multiple vascular territory infarcts within the cerebral hemisph eres and cerebellum redemonstrated with small acute infarcts of the right frontal lobe and left front al parietal distribution appearing new from 02/15/2021. Findings are again suggestive of a proximal e mbolic source. 2. CTA of the head demonstrates no high-grade stenosis or proximal branch arterial occlusion. ACT 112: Negative or not required by law. The above report was generated using voice recognition software. It may contain grammatical, syntax o r spelling errors. Electronically signed by: Jake Skelton M.D. 02/18/2021 11:28 AM
[2021-02-18] MEDS ORDERED: INSULIN ASPART PER UNIT SC SCH (12:15)
[2021-02-18] MEDS: cefTRIAXone SODIUM 2,000 MG in DEXTROSE 5% 50 ML IV SCH (12:17)
--- NOTE | 2021-02-18 15:49 | Hospitalist Progress Note ---
Date of Service February 18, 2021 Assessment & Plan (1) Pneumonia due to 2019 novel coronavirus: Plan: First symptoms: ~01/27/2021 First tested: 02/14/2021 in our system Vaccinated: No Admission date: 02/14/2021 Admission O2 requirement: Intubated for airway protection Admission CRP: 17.4 Dexamethasone course started: 02/14/2021; End date: 02/23/2021 Remdesivir started: N/a Remdesivir contraindication: >7 days symptoms Tocilizumab given/baricitinib started: N/a Tocilizumab/baricitinib contraindication: Elevated liver enzymes Antibiotics: Zosyn (started 02/14) -> Ceftriaxone on 02/17 (End date: 02/20 for 5-day course) Breathing treatments: None Presently on 4L NC. (2) Acute CVA (cerebrovascular accident): Plan: CT head on admission showed a "2.4 cm acute versus subacute appearing infarct is noted within the right frontal periventricular distribution involving the adjacent basal ganglia and internal capsule." - CTA head and neck showed no stenoses. - TTE with bubble study on 02/16 showed significant R -> L inter-atrial shunt. - Neurology consult appreciated. - A1c of 6.3% this admission. - Lipids pending. -> Embolic stroke. Will eventually need discussion on PFO repair, but certainly not in acute setting. (3) Pulmonary embolism: Plan: CTA chest on 02/14 showed extensive bilateral pulmonary emboli with right heart strain. With acute cor pulmonale. - Heparin standard bolus and drip - Will transition to apixaban given stability and no hemorrhagic conversion seen on CTA on 02/18. (4) Acute respiratory failure with hypoxia: Plan: Secondary to bilateral PEs +/- COVID-19 pneumonia. 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 - TTE with preserved LV function and suspected secondary to pulmonary embolism and right heart strain - Troponin peaked at 7.3 on 02/14; now downtrending. - Started aspirin, beta-daisy, and statin Admission and Anticipated Discharge Date Admission Date: February 14, 2021 Subjective Doing some better today. More alert, but still inattentive. Reports no fevers/chills, chest pain, shortness of breath, abdominal pain, nausea, or vomiting. Physical Exam Constitutional: well developed and cooperative Eyes: EOM intact bilaterally; no eyelid abnormality and no conjunctival abnormality ENMT: external ear and nose normal, oropharynx normal Neck: trachea midline, no thyromegaly normal visual inspection Respiratory: normal respiratory effort, lungs clear to auscultation Auscu ltation: + rhonchi Cardiovascular: RRR, no murmur, no edema Gastrointestinal (Abdomen): Inspection/Auscultation: abdomen normal to inspection; abdomen not distended Skin: no rashes, warm and dry Neurologic: moves all extremities and awake Psychiatric: Orientation: alert, oriented to person and oriented to place; + not oriented to time Eye Contact: + poor eye contact Affect: + flat affect Results & Data Results & Data ([facility]) Vital Signs (Past 12 Hours) Vital Signs Temp Pulse Pulse Resp BP Pulse Ox 02/18/21 10:30 96 H 29 H 166/61 H 94 02/18/21 09:15 36.7 C 82 24 184/83 H 95 02/18/21 08:00 81 02/18/21 04:00 36.5 C 86 26 H 177/77 H 92 PG Care Time/CCT Total # of Minutes Spent Total Time Spent with Patient: Total time spent is greater than 50% in coordination of care (as documented) at patient's floor/unit and/or counseling patient: Coding Level of Care Code 59645 Subseq Hosp Care Lvl 3 Diagnoses Pneumonia due to 2019 novel coronavirus U07.1; J12.82 Pulmonary embolism I26.99 Acute cor pulmonale presence: unspecified Chronicity: acute Pulmonary embolism type: unspecified Acute respiratory failure with hypoxia J96.01 Acute CVA (cerebrovascular accident) I63.9 Acute non-ST elevation myocardial infarction (NSTEMI) I21.4 (1) Pulmonary embolism Acute cor pulmonale presence: unspecified Chronicity: acute Pulmonary embolism type: unspecified Qualified Code(s): I26.99 - Other pulmonary embolism without acute cor pulmonale
[2021-02-18] MEDS: APIXABAN 5 MG TABLET PO SCH (21:10)
[2021-02-18] MEDS: METOPROLOL TARTRATE 25 MG TAB PO SCH (21:11)
[2021-02-19 06:10] LABS: Hematocrit (blood only) 44.6 % (37-47); Hemoglobin 14.8 g/dL (12.0-16.0); Mean Corpuscular Hemoglobin 29.5 pg (25-34); Mean Corpuscular Hgb Conc 33.2 g/dL (32-36); Mean Platelet Volume 11.3 fL (7.4-10.4); Nucleated RBC % (auto) 0.8 %; Platelet Count 245 K/uL (130-400); RDW Coefficient of Variation 13.3 % (11.5-14.5); RDW Standard Deviation 42.5 fL (36.4-46.3); Red Blood Count 5.01 M/uL (4.2-5.4); White Blood Count 13.12 K/uL (4.8-10.8)
[2021-02-19 06:41] LABS: Calcium 8.9 mg/dl (8.5-10.1); Creatinine Clr Calc Pharmacy 94.6 ml/min; Est GFR (African American) 75.8 ml/min; Est GFR (Non-African American) 65.4 ml/min; Magnesium 2.8 mg/dl (1.8-2.4); Potassium 3.9 mmol/L (3.5-5.1)
--- NOTE | 2021-02-19 08:19 | Hospitalist Progress Note ---
Date of Service February 19, 2021 Assessment & Plan (1) Pneumonia due to 2019 novel coronavirus: Plan: First symptoms: ~01/27/2021 First tested: 02/14/2021 in our system Vaccinated: No Admission date: 02/14/2021 Admission O2 requirement: Intubated for airway protection, extubated now on NC oxygen Admission CRP: 17.4 Dexamethasone course started: 02/14/2021; End date: 02/23/2021 Remdesivir started: N/a Remdesivir contraindication: >7 days symptoms Tocilizumab given/baricitinib started: N/a Tocilizumab/baricitinib contraindication: Elevated liver enzymes Antibiotics: Zosyn (started 02/14) -> Ceftriaxone on 02/17 (End date: 02/20 for 5-day course) Presently on 4L NC. (2) Acute CVA (cerebrovascular accident): Plan: CT head on admission showed a "2.4 cm acute versus subacute appearing infarct is noted within the right frontal periventricular distribution involving the adjacent basal ganglia and internal capsule." - CTA head and neck showed no stenoses. - TTE with bubble study on 02/16 showed significant R -> L inter-atrial shunt. - Neurology consult appreciated supportive of anticoagulation MRI of the brain performed 02/19/2021 confirms multiple emboli without hemorrhagic conversion - A1c of 6.3% this admission. - Lipids pending. -> Embolic stroke. Will eventually need discussion on PFO repair, but certainly not in acute setting. (3) Pulmonary embolism: Plan: CTA chest on 02/14 showed extensive bilateral pulmonary emboli with right heart strain. With acute cor pulmonale. - Heparin s transition to apixaban given stability and no hemorrhagic conversion seen on CTA on 02/18 and MRI of 02/19 (4) Acute respiratory failure with hypoxia: Plan: Secondary to bilateral PEs +/- COVID-19 pneumonia. (5) Acute non-ST elevation myocardial infarction (NSTEMI): Plan: ST elevation in inferior and right precordial leads suspect to be secondary to PEs rather than [place] therefore cardiac cath lab technologist deferred per ER discussion with cardiology. - TTE with preserved LV function and suspected secondary to pulmonary embolism and right heart strain - Troponin peaked at 7.3 on 02/14; now downtrending. - Started aspirin, beta-daisy, and statin Admission and Anticipated Discharge Date Admission Date: February 14, 2021 Subjective Patient is awake and conversive claims of a visual field cut was informed of all of her health problems she seemed somewhat aware but surprised at the same time. She complained of being mildly short of breath and continue to have issues with her arm being weak. MRI scan of the brain shows likely showering of emboli no hemorrhagic conversion Review of Systems Review of Systems: Mild distress and fatigue no headache, claims to have visual field loss may be to the right side difficult to nail down with confrontational testing no speech or swallowing issues no chest pain, pressure or palpitations Continues to feel mildly short of breath but has no cough or wheezes no abdominal pain, nausea or vomiting, diarrhea or constipation no dysuria, hematuria or frequency no focal joint pain or swelling no back pain, CVA tenderness or radicular pain no bruising, bleeding or rashes Has difficulty opening her eyes widely I see no facial asymmetry definitely having some weakness to her right arm she seems to be able to move her right leg with more strength in her right arm no complaints of anxiety or depression.. Physical Exam Physical Exam: The patient appeared moderately limited due to likely her stroke more than anything Vital signs as documented. Head exam is normocephalic atraumatic both eyelids are held that is with a half open Neck is without JVD, thyromegaly, or carotid bruits. Lungs are coarse breath sounds bilaterally Cardiac exam, Rhythm is regular.. No murmurs, rubs or gallops. Abdominal exam reveals normal bowel sounds, soft non tender, no masses Extremities are nonedematous and both pedal pulses are present Neurologic exam is alert and oriented x2 right arm and plastic surgery coordinator is probably 3 out of 5 right leg is 4.5/5 Skin is without bruises or rashes Psychologically is without concerns for anxiety or depression.. Results & Data Results & Data ([facility]) Vital Signs (Past 12 Hours) Vital Signs Temp Pulse Pulse Resp BP Pulse Ox 02/19/21 07:57 97.7 F 62 14 140/86 97 02/19/21 02:00 69 15 140/72 91 02/18/21 23:19 59 L 02/18/21 22:55 98.6 F 60 19 140/72 96 PG Care Time/CCT Total # of Minutes Spent Total Time Spent with Patient: Total time spent is greater than 50% in coordination of care (as documented) at patient's floor/unit and/or counseling patient: Coding Level of Care Code 23399 Subseq Hosp Care Lvl 3 Diagnoses Pneumonia due to 2019 novel coronavirus U07.1; J12.82 Acute CVA (cerebrovascular accident) I63.9 Pulmonary embolism I26.99 Acute cor pulmonale presence: unspecified Chronicity: acute Pulmonary embolism type: unspecified Acute respiratory failure with hypoxia J96.01 Acute non-ST elevation myocardial infarction (NSTEMI) I21.4 (1) Pulmonary embolism Acute cor pulmonale presence: unspecified Chronicity: acute Pulmonary embolism type: unspecified Qualified Code(s): I26.99 - Other pulmonary embolism without acute cor pulmonale
[2021-02-19] MEDS: INSULIN ASPART PER UNIT SC SCH ×4 (08:58→20:27)
[2021-02-19] MEDS: APIXABAN 5 MG TABLET PO SCH ×2 (09:00→20:26)
[2021-02-19] MEDS ORDERED: ASPIRIN 81 MG ECTAB PO SCH (09:00)
[2021-02-19] MEDS: FAMOTIDINE 20 MG in SYRINGE 3 ML IV SCH ×2 (09:01→20:26)
[2021-02-19] MEDS: METOPROLOL TARTRATE 25 MG TAB PO SCH ×2 (09:01→20:27)
[2021-02-19] MEDS: MULTI VIT W/MINERALS LIQUID 15 ML UDP PO SCH (09:01)
[2021-02-19] MEDS: ATORVASTATIN 40 MG TAB PO SCH (09:01)
[2021-02-19] MEDS: dexAMETHasone 6 MG in SYRINGE 0 ML IV SCH (09:09)
[2021-02-19] MEDS: cefTRIAXone SODIUM 2,000 MG in DEXTROSE 5% 50 ML IV SCH (11:33)
--- NOTE | 2021-02-19 13:17 | Magnetic Resonance Report ---
MR brain wo con CLINICAL HISTORY: Right-sided weakness. Evaluate for stroke COMPARISON STUDY: CT brain from 02/14/2021 and CTA brain from 02/18/2021 TECHNIQUE: Multiplanar multisequence images of the Brain were performed without IV contrast. Diffusi on weighted imaging and ADC mapping was also performed. FINDINGS: Extra-axial space: There is no evidence for a subdural hematoma, There are no extra-axial fluid cecelia ections. Ventricles and cisterns: The ventricles are normal in size and configuration. There is no evidence f or midline shift or mass effect. Parenchyma: There are numerous acute foci of abnormal signal demonstrated within the cerebrum and cer ebellum bilaterally most characteristic of showering of emboli versus metastatic disease. These inclu de the left cerebellar hemisphere, the right cerebellar hemisphere, the right occipital lobe, the lef t temporal lobe, the left occipital lobe, the head of the thalamus on the right and multiple foci wit hin the bilateral parietal lobes, right greater than left. The diffuse nature and multiplicity of the se lesions favor metastatic disease. A few of these lesions are ringlike in appearance. Abnormal sign al is demonstrated on diffusion weighted imaging, ADC mapping and T2-weighted imaging in addition to FLAIR weighted sequences. Repeat MR with contrast is recommended for further evaluation. Osseous structures: The paranasal sinuses are well aerated. The mastoid air cells are well aerated. Soft tissues: No focal soft tissue abnormalities are identified. IMPRESSION: Numerous foci of abnormal signal throughout the cerebellum and cerebrum with the finding s most characteristic of metastatic disease rather than showering of emboli. Follow-up MRI with contr ast is recommended for further evaluation. ACT 112: Negative or not required by law. Electronically signed by: Kaleb Martin M.D. 02/19/2021 1:16 PM
--- NOTE | 2021-02-20 07:49 | Hospitalist Progress Note ---
Date of Service February 20, 2021 Assessment & Plan (1) Pneumonia due to 2019 novel coronavirus: Plan: First symptoms: ~01/27/2021 First tested: 02/14/2021 in our system Vaccinated: No Admission date: 02/14/2021 Admission O2 requirement: Intubated for airway protection, extubated now on [place] oxygen Admission CRP: 17.4 Dexamethasone course started: 02/14/2021; End date: 02/23/2021 Remdesivir started: N/a Remdesivir contraindication: >7 days symptoms Tocilizumab given/baricitinib started: N/a Tocilizumab/baricitinib contraindication: Elevated liver enzymes Antibiotics: Zosyn (started 02/14) -> Ceftriaxone on 02/17 (End date: 02/20 for 5-day course) Presently on 2L NC. (2) Acute CVA (cerebrovascular accident): Plan: CT head on admission showed a "2.4 cm acute versus subacute appearing infarct is noted within the right frontal periventricular distribution involving the adjacent basal ganglia and internal capsule." - CTA head and neck showed no stenoses. - TTE with bubble study on 02/16 showed significant R -> L inter-atrial shunt. - Neurology consult appreciated supportive of anticoagulation MRI of the brain performed 02/19/2021 confirms multiple emboli without hemorrhagic conversion - A1c of 6.3% this admission. - Lipids pending. -> Embolic stroke. Will eventually need discussion on PFO repair, but certainly not in acute setting. (3) Pulmonary embolism: Plan: CTA chest on 02/14 showed extensive bilateral pulmonary emboli with right heart strain. With acute cor pulmonale. 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 - TTE with preserved LV function and suspected secondary to pulmonary embolism and right heart strain - Troponin peaked at 7.3 on 02/14; now downtrending. - aspirin, beta-daisy, and statin (6) Depression: Plan: starting Remeron to help depression and appetite Admission and Anticipated Discharge Date Admission Date: February 14, 2021 Subjective Patient is awake and conversive, she says shes miserable but will not elaborate on it, she does not want to eat or even take Boost, She is agreeable to take antidepressant. She continues to have issues with her arm being weak. MRI scan of the brain shows likely showering of emboli no hemorrhagic conversion. does say that her vision is improved 02/20 Review of Systems Review of Systems: Mild distress and fatigue no headache, states here vision is improving no speech or swallowing issues no chest pain, pressure or palpitations Continues to feel mildly short of breath but has no cough or wheezes no abdominal pain, nausea or vomiting, diarrhea or constipation no dysuria, hematuria or frequency no focal joint pain or swelling no back pain, CVA tenderness or radicular pain no bruising, bleeding or rashes Has difficulty opening her eyes widely I see no facial asymmetry definitely having some weakness to her right arm she seems to be able to move her right leg with more strength, but complaints of her right leg weakness more than her right arm no complaints of anxiety or depression.. Physical Exam Physical Exam: The patient appeared moderately limited due to likely her stroke more than anything Vital signs as documented. Head exam is normocephalic atraumatic both eyelids are held that is with a half open Neck is without JVD, thyromegaly, or carotid bruits. Lungs are coarse breath sounds bilaterally Cardiac exam, Rhythm is regular.. No murmurs, rubs or gallops. Abdominal exam reveals normal bowel sounds, soft non tender, no masses Extremities are nonedematous and both pedal pulses are present Neurologic exam is alert and oriented x2 right arm and fur blower is probably 4 out of 5 right leg remains 4.5/5 Skin is without bruises or rashes Psychologically is without concerns for anxiety or depression.. Results & Data Results & Data ([facility]) Vital Signs (Past 12 Hours) Vital Signs Temp Pulse Pulse Resp BP Pulse Ox 02/20/21 03:09 97.5 F L 67 18 156/76 H 96 02/20/21 00:00 52 L 02/19/21 23:10 97.5 F L 58 L 16 166/82 H 95 PG Care Time/CCT Total # of Minutes Spent Total Time Spent with Patient: Total time spent is greater than 50% in coordination of care (as documented) at patient's floor/unit and/or counseling patient: Coding Level of Care Code 22249 Subseq Hosp Care Lvl 3 Diagnoses Pneumonia due to 2019 novel coronavirus U07.1; J12.82 Acute CVA (cerebrovascular accident) I63.9 Pulmonary embolism I26.99 Acute cor pulmonale presence: unspecified Chronicity: acute Pulmonary embolism type: unspecified Acute respiratory failure with hypoxia J96.01 Acute non-ST elevation myocardial infarction (NSTEMI) I21.4 Depression F32.A (1) Pulmonary embolism Acute cor pulmonale presence: unspecified Chronicity: acute Pulmonary embolism type: unspecified Qualified Code(s): I26.99 - Other pulmonary embolism without acute cor pulmonale
[2021-02-20] MEDS: INSULIN ASPART PER UNIT SC SCH ×4 (08:19→20:57)
[2021-02-20] MEDS: dexAMETHasone 6 MG in SYRINGE 0 ML IV SCH (08:43)
[2021-02-20] MEDS: FAMOTIDINE 20 MG in SYRINGE 3 ML IV SCH ×2 (08:43→20:57)
[2021-02-20] MEDS: APIXABAN 5 MG TABLET PO SCH ×2 (08:43→21:17)
[2021-02-20] MEDS: ATORVASTATIN 40 MG TAB PO SCH (08:43)
[2021-02-20] MEDS: METOPROLOL TARTRATE 25 MG TAB PO SCH ×2 (08:44→20:58)
[2021-02-20] MEDS: MULTI VIT W/MINERALS LIQUID 15 ML UDP PO SCH (08:44)
[2021-02-20] MEDS: cefTRIAXone SODIUM 2,000 MG in DEXTROSE 5% 50 ML IV SCH (11:08)
[2021-02-20] MEDS ORDERED: MIRTAZAPINE TAB 15 MG TAB PO SCH (21:00)
--- NOTE | 2021-02-21 07:32 | Hospitalist Progress Note ---
Date of Service February 21, 2021 Assessment & Plan (1) Pneumonia due to 2019 novel coronavirus: Plan: First symptoms: ~01/27/2021 First tested: 02/14/2021 in our system Vaccinated: No Admission date: 02/14/2021 Admission O2 requirement: Intubated for airway protection, extubated now on [place] oxygen Admission CRP: 17.4 Dexamethasone course started: 02/14/2021; End date: 02/23/2021 Remdesivir started: N/a Remdesivir contraindication: >7 days symptoms Tocilizumab given/baricitinib started: N/a Tocilizumab/baricitinib contraindication: Elevated liver enzymes Antibiotics: Zosyn (started 02/14) -> Ceftriaxone on 02/17 (End date: 02/20 for 5-day course) Presently on 2L NC. (2) Acute CVA (cerebrovascular accident): Plan: CT head on admission showed a "2.4 cm acute versus subacute appearing infarct is noted within the right frontal periventricular distribution involving the adjacent basal ganglia and internal capsule." - CTA head and neck showed no stenoses. - TTE with bubble study on 02/16 showed significant R -> L inter-atrial shunt. - Neurology consult appreciated supportive of anticoagulation MRI of the brain performed 02/19/2021 confirms multiple emboli without hemorrhagic conversion - A1c of 6.3% this admission. Pt has had decreased alertness waxing and waining but on 02/21/21 she now is refusing to eat, and complaining of feeling sob despite having stable saturations concern if from her stroke and does not have an easy fix, attempted to call son but mailbox is full -> Embolic stroke. Will eventually need discussion on PFO repair, but certainly not in acute setting. (3) Pulmonary embolism: Plan: CTA chest on 02/14 showed extensive bilateral pulmonary emboli with right heart strain. With acute cor pulmonale. 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 - TTE with preserved LV function and suspected secondary to pulmonary embolism and right heart strain - Troponin peaked at 7.3 on 02/14; now downtrending. - aspirin, beta-daisy, and statin (6) Depression: Plan: starting Remeron to help depression and appetite Admission and Anticipated Discharge Date Admission Date: February 14, 2021 Subjective Patient is much less awake today refusing to eat food this plays with her blood glucose having some hypoglycemia requiring D50 infusion. Because of her reduced alertness despite having a good conversation with me but with continual prodding patient is CT scan of her head the scan of the brain shows likely showering of emboli but still no hemorrhagic conversion. Review of Systems Review of Systems: Moderate distress and fatigue no headache, states here vision is improving no speech or swallowing issues no chest pain, pressure or palpitations Continues to feel mildly short of breath but has no cough or wheezes no abdominal pain, nausea or vomiting, diarrhea or constipation no dysuria, hematuria or frequency no focal joint pain or swelling no back pain, CVA tenderness or radicular pain no bruising, bleeding or rashes Has difficulty opening her eyes widely there continues to be no facial asymmetry but definitely having some weakness to her right arm she seems to be able to move her right leg with more strength, but complaints of her right leg weakness more than her right arm no complaints of anxiety or depression.. Physical Exam Physical Exam: The patient appeared moderately limited due to likely her stroke more than anything Vital signs as documented. Head exam is normocephalic atraumatic both eyelids are held that is with a half open Neck is without JVD, thyromegaly, or carotid bruits. Lungs are coarse breath sounds bilaterally Cardiac exam, Rhythm is regular.. No murmurs, rubs or gallops. Abdominal exam reveals normal bowel sounds, soft non tender, no masses Extremities are nonedematous and both pedal pulses are present Neurologic exam is alert and oriented x2 right arm and hotel assistant general manager is probably 4 out of 5 right leg remains 4.5/5 Skin is without bruises or rashes Psychologically is without concerns for anxiety or depression.. Results & Data Results & Data ([facility]) Vital Signs (Past 12 Hours) Vital Signs Temp Pulse Resp BP Pulse Ox 02/21/21 04:00 97.7 F 56 L 18 141/78 H 93 02/20/21 23:54 98.1 F 73 18 152/86 H 95 02/20/21 19:52 97.9 F 60 18 147/85 H 94 PG Care Time/CCT Total # of Minutes Spent Total Time Spent with Patient: Total time spent is greater than 50% in coordination of care (as documented) at patient's floor/unit and/or counseling patient: Coding Level of Care Code 74922 Subseq Hosp Care Lvl 3 Diagnoses Pneumonia due to 2019 novel coronavirus U07.1; J12.82 Acute CVA (cerebrovascular accident) I63.9 Pulmonary embolism I26.99 Acute cor pulmonale presence: unspecified Chronicity: acute Pulmonary embolism type: unspecified Acute respiratory failure with hypoxia J96.01 Acute non-ST elevation myocardial infarction (NSTEMI) I21.4 Depression F32.A (1) Pulmonary embolism Acute cor pulmonale presence: unspecified Chronicity: acute Pulmonary embolism type: unspecified Qualified Code(s): I26.99 - Other pulmonary embolism without acute cor pulmonale
[2021-02-21] MEDS: FAMOTIDINE 20 MG in SYRINGE 3 ML IV SCH ×2 (08:06→21:41)
[2021-02-21] MEDS: MULTI VIT W/MINERALS LIQUID 15 ML UDP PO SCH (08:06)
[2021-02-21] MEDS: METOPROLOL TARTRATE 25 MG TAB PO SCH (08:07)
[2021-02-21] MEDS ORDERED: DEXTROSE 50% 50 ML SYRINGE IV ONE (08:30)
[2021-02-21] MEDS ORDERED: FLUARIX QUADRIVALENT 0.5 ML SYR IM ONE (09:00)
[2021-02-21] MEDS: INSULIN ASPART PER UNIT SC SCH (09:10)
[2021-02-21] MEDS: APIXABAN 5 MG TABLET PO SCH ×2 (09:59→21:41)
[2021-02-21] MEDS: dexAMETHasone 6 MG in SYRINGE 0 ML IV SCH (09:59)
[2021-02-21] MEDS: ATORVASTATIN 40 MG TAB PO SCH (09:59)
--- NOTE | 2021-02-21 10:56 | Pharmacy Report ---
Pharmacy Glycemic Sign Off Nt - Date of Service February 21, 2021 - Assessment & Plan ASSESSMENT: * Pharmacy was consulted by Dr Cabrera on 02/15/21 for glycemic control and to write orders per [facility] inpatient glycemic control protocol. * Major changes made by pharmacy to antidiabetic regimen include: * Adjusting SQ basal bolus insulin regimen for steroid induced hyperglycemia * Patient has been receiving/requiring 0 units of insulin per day for adequate glycemic control * BSGs all in goal range- AM fastings are "low" but this is just her baseline based on normal A1c * Do not anticipate further changes in patient status that would quickly deteriorate glycemic control * Please see recommendations for outpatient antidiabetic regimen below. PLAN FOR INPATIENT GLYCEMIC CONTROL: Insulin regimen no longer needed * Continue to hold basal/NPH (none given since 02/18) * DC NovoLog per scale - no insulin needed (none given since 02/17/21) * Pharmacy is signing off of glycemic consult and will no longer be making adjustments to inpatient regimen. Please feel free to re-consult if needed. Thank you. DISCHARGE RECOMMENDATIONS: * A1c 6.3 % on 02/16/21 this indicates "pre-diabetes" recommend diet/lifestyle modifications
--- NOTE | 2021-02-21 13:49 | CT Scan Report ---
CT head/brain wo con CLINICAL HISTORY: Altered mental status, weakness. Follow-up multiple focal infarcts. Evaluate for he morrhagic conversion. COMPARISON STUDY: CT and CTA of the brain from 02/15 and 02/16/2021 CT DOSE: 614.27 mGy.cm TECHNIQUE: Standard CT of the Brain was performed without IV contrast. A dose lowering technique was utilized adhering to the principles of ALARA. FINDINGS: Extraaxial space: There is no evidence for subdural hematoma. There are no extra-axial fluid collecti ons. Ventricles and cisterns: The ventricles are normal in size and configuration. There is no evidence f or midline shift or mass effect. Parenchyma: There is no subarachnoid or intraparenchymal hemorrhage. There is no evidence for an acu te infarct or cerebral edema. Compared to the previous examination, multiple foci of low-attenuation are seen within the region of the thalamus on the right, the occipital lobe on the right, the cerebel lar hemisphere on the left, the high left parietal lobe posteriorly and the high posterior right jmi etal lobe. These represent multiple infarcts as seen on MRI characteristic of showering of emboli. Th ere is no evidence for hemorrhagic conversion. There are no gross mass lesions. Osseous structures: There is no evidence for an acute fracture. The visualized paranasal sinuses are clear. The mastoid air cells are clear bilaterally. Soft tissues: There is no evidence for focal soft tissue swelling. IMPRESSION: Compared to the previous examination, multiple foci of low-attenuation are seen throughou t the brain as described above most characteristic of showering of emboli with multiple infarcts pres ent. There is no evidence for hemorrhagic conversion. ACT 112: Negative or not required by law. Electronically signed by: Kaleb Martin M.D. 02/21/2021 1:48 PM
[2021-02-21] MEDS ORDERED: METOPROLOL TARTRATE 1 MG/ML VIAL IV PRN (17:50)
[2021-02-21] MEDS ORDERED: hydrALAZINE HCL 20 MG/ML VIAL IV PRN (17:50)
[2021-02-21] MEDS: NORMOSOL-R 1,000 ML IV SCH (17:51)
[2021-02-21 18:03] LABS: Calcium 9.2 mg/dl (8.5-10.1); Creatinine Clr Calc Pharmacy 98.9 ml/min; Est GFR (Non-African American) 69.9 ml/min; Potassium 5.3 mmol/L (3.5-5.1)
[2021-02-21] MEDS: METOPROLOL TARTRATE 1 MG/ML VIAL IV SCH (18:05)
[2021-02-22] MEDS: METOPROLOL TARTRATE 1 MG/ML VIAL IV SCH ×5 (00:47→23:54)
[2021-02-22] MEDS: NORMOSOL-R 1,000 ML IV SCH ×3 (05:47→20:53)
[2021-02-22 06:49] LABS: Hemoglobin 15.9 g/dL (12.0-16.0); Mean Corpuscular Hemoglobin 29.7 pg (25-34); Mean Corpuscular Hgb Conc 33.1 g/dL (32-36); Mean Corpuscular Volume 89.6 fL (80-100); Mean Platelet Volume 11.7 fL (7.4-10.4); Platelet Count 228 K/uL (130-400); RDW Coefficient of Variation 13.6 % (11.5-14.5); RDW Standard Deviation 43.3 fL (36.4-46.3); Red Blood Count 5.36 M/uL (4.2-5.4); White Blood Count 13.33 K/uL (4.8-10.8)
--- NOTE | 2021-02-22 07:05 | Hospitalist Progress Note ---
Date of Service February 22, 2021 Assessment & Plan (1) Acute CVA (cerebrovascular accident): Plan: Biggest issue is that the pt has reduced alertness and does not want to eat CT head on admission showed a "2.4 cm acute versus subacute appearing infarct is noted within the right frontal periventricular distribution involving the adjacent basal ganglia and internal capsule." - CTA head and neck showed no stenoses. - TTE with bubble study on 02/16 showed significant R -> L inter-atrial shunt. - Neurology consult appreciated supportive of anticoagulation MRI of the brain performed 02/19/2021 confirms multiple emboli without hemorrhagic conversion - A1c of 6.3% this admission. Pt has had decreased alertness waxing and waining but on 02/21/21 she now is refusing to eat, and complaining of feeling sob despite having stable saturations concern if from her stroke and does not have an easy fix, attempted to call son but mailbox is full -> Embolic stroke. Will eventually need discussion on PFO repair, but certainly not in acute setting. (2) Pneumonia due to 2019 novel coronavirus: Plan: First symptoms: ~01/27/2021 First tested: 02/14/2021 in our system Vaccinated: No Admission date: 02/14/2021 Admission O2 requirement: Intubated for airway protection, extubated now on NC oxygen Admission CRP: 17.4 Dexamethasone course started: 02/14/2021; End date: 02/23/2021 Remdesivir started: N/a Remdesivir contraindication: >7 days symptoms Tocilizumab given/baricitinib started: N/a Tocilizumab/baricitinib contraindication: Elevated liver enzymes Antibiotics: Zosyn (started 02/14) -> Ceftriaxone on 02/17 (End date: 02/20 for 5-day course) Presently on 2L NC. (3) Pulmonary embolism: Plan: CTA chest on 02/14 showed extensive bilateral pulmonary emboli with right heart strain. With acute cor pulmonale. 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 - TTE with preserved LV function and suspected secondary to pulmonary embolism and right heart strain - Troponin peaked at 7.3 on 02/14; now downtrending. - aspirin, beta-daisy, and statin (6) Depression: Plan: starting Remeron to help depression and appetite Admission and Anticipated Discharge Date Admission Date: February 14, 2021 Subjective pt having a waxing and waning hospital course 02/21 was a down day, did not eat had low blood glucose Review of Systems Review of Systems: Moderate distress and fatigue no headache, states here vision is improving no speech or swallowing issues no chest pain, pressure or palpitations Continues to feel mildly short of breath but has no cough or wheezes no abdominal pain, nausea or vomiting, diarrhea or constipation no dysuria, hematuria or frequency no focal joint pain or swelling no back pain, CVA tenderness or radicular pain no bruising, bleeding or rashes Has difficulty opening her eyes widely there continues to be no facial asymmetry but definitely having some weakness to her right arm she seems to be able to move her right leg with more strength, but complaints of her right leg weakness more than her right arm no complaints of anxiety or depression.. Physical Exam Physical Exam: The patient appeared moderately limited due to likely her stroke more than anything Vital signs as documented. Head exam is normocephalic atraumatic both eyelids are held that is with a half open Neck is without JVD, thyromegaly, or carotid bruits. Lungs are coarse breath sounds bilaterally Cardiac exam, Rhythm is regular.. No murmurs, rubs or gallops. 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 Results & Data Results & Data ([facility]) Vital Signs (Past 12 Hours) Vital Signs Temp Pulse Resp BP Pulse Ox 02/22/21 03:19 97.3 F L 60 17 160/79 H 94 02/21/21 22:55 97.3 F L 55 L 16 134/74 98 02/21/21 20:11 98.5 F 61 15 132/72 95 PG Care Time/CCT Total # of Minutes Spent Total Time Spent with Patient: Total time spent is greater than 50% in coordination of care (as documented) at patient's floor/unit and/or counseling patient: Coding Level of Care Code 95958 Subseq Hosp Care Lvl 3 Diagnoses Pneumonia due to 2019 novel coronavirus U07.1; J12.82 Acute CVA (cerebrovascular accident) I63.9 Pulmonary embolism I26.99 Acute cor pulmonale presence: unspecified Chronicity: acute Pulmonary embolism type: unspecified Acute respiratory failure with hypoxia J96.01 Acute non-ST elevation myocardial infarction (NSTEMI) I21.4 Depression F32.A (1) Pulmonary embolism Acute cor pulmonale presence: unspecified Chronicity: acute Pulmonary embolism type: unspecified Qualified Code(s): I26.99 - Other pulmonary embolism without acute cor pulmonale
[2021-02-22 07:25] LABS: BUN Creatinine Ratio 22.7 (10-20); Calcium 9.1 mg/dl (8.5-10.1); Creatinine Clr Calc Pharmacy 92.1 ml/min; Est GFR (African American) 73.9 ml/min; Est GFR (Non-African American) 63.7 ml/min; Potassium 4.4 mmol/L (3.5-5.1); Troponin I 0.179 ng/ml (0-0.045)
[2021-02-22] MEDS: dexAMETHasone 6 MG in SYRINGE 0 ML IV SCH (09:12)
[2021-02-22] MEDS: APIXABAN 5 MG TABLET PO SCH ×2 (09:13→20:55)
[2021-02-22] MEDS: FAMOTIDINE 20 MG in SYRINGE 3 ML IV SCH (09:13)
[2021-02-22] MEDS: ATORVASTATIN 40 MG TAB PO SCH (09:14)
[2021-02-22] MEDS: MULTI VIT W/MINERALS LIQUID 15 ML UDP PO SCH (09:14)
[2021-02-22] MEDS ORDERED: MICONAZOLE NITRATE POWDER 43 GM EXT SCH (09:45)
[2021-02-22] MEDS: MICONAZOLE NITRATE POWDER 43 GM EXT PRN ×2 (11:31→17:10)
[2021-02-22] MEDS: FAMOTIDINE 20 MG TAB PO SCH (20:55)
[2021-02-23] MEDS: METOPROLOL TARTRATE 1 MG/ML VIAL IV SCH ×4 (05:42→23:06)
[2021-02-23] MEDS: APIXABAN 5 MG TABLET PO SCH ×2 (09:00→20:05)
[2021-02-23] MEDS: dexAMETHasone 6 MG in SYRINGE 0 ML IV SCH (09:00)
[2021-02-23] MEDS: ATORVASTATIN 40 MG TAB PO SCH (09:01)
[2021-02-23] MEDS: MULTI VIT W/MINERALS LIQUID 15 ML UDP PO SCH (09:01)
[2021-02-23] MEDS: FAMOTIDINE 20 MG TAB PO SCH ×2 (09:01→20:04)
[2021-02-23] MEDS: NORMOSOL-R 1,000 ML IV SCH (09:05)
[2021-02-23] MEDS: MICONAZOLE NITRATE POWDER 43 GM EXT PRN (09:10)
--- NOTE | 2021-02-23 14:37 | Hospitalist Progress Note ---
Date of Service February 23, 2021 Assessment & Plan (1) Acute CVA (cerebrovascular accident): Plan: Biggest issue is that the pt has reduced alertness and does not want to eat, but this is improving past few days CT head on admission showed a "2.4 cm acute versus subacute appearing infarct is noted within the right frontal periventricular distribution involving the adjacent basal ganglia and internal capsule." - CTA head and neck showed no stenoses. - TTE with bubble study on 02/16 showed significant R -> L inter-atrial shunt. - Neurology consult appreciated supportive of anticoagulation MRI of the brain performed 02/19/2021 confirms multiple emboli without hemorrhagic conversion - A1c of 6.3% this admission. more alert today, eating better, drinking better, stopped IV fluids continue on Eliquis 10mg BID x 7 days then 5mg BID will need rehab, would be good [facility] candidate (2) Pneumonia due to 2019 novel coronavirus: Plan: First symptoms: ~01/27/2021 First tested: 02/14/2021 in our system Vaccinated: No Admission date: 02/14/2021 Admission O2 requirement: Intubated for airway protection, extubated now down to room air after being on nasal canula for a few days Dexamethasone course started: 02/14/2021; End date: 02/23/2021 (today) did not meet requirements for Remdesivir or Baricitinib completed course of Rocephin (3) Pulmonary embolism: Plan: CTA chest on 02/14 showed extensive bilateral pulmonary emboli with right heart strain. With acute cor pulmonale. 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 - TTE with preserved LV function and suspected secondary to pulmonary embolism and right heart strain - Troponin peaked at 7.3 on 02/14; now downtrending. - aspirin, beta-daisy, and statin (6) Depression: Plan: starting Remeron to help depression and appetite seems to be helping as she is eating/drinking more stop fluids Plan: medically stable for discharge, need to work on rehab placement Admission and Anticipated Discharge Date Admission Date: February 14, 2021 Subjective patient doing better today than past few days she is eating and drinking better, stop IV fluids we discussed why she is here, she had embolic stroke, DVT, PE, COVID infection discussed that everything could be related to COVID infection still very weak, will need rehab when ready for discharge reviewed chart and labs discussed with RN at the bedside Review of Systems Review of Systems: All systems reviewed & are unremarkable except as noted in Subjective Constitutional: + fatigue and + weakness Musculoskeletal: + muscle weakness (generalized) Neurologic: + generalized weakness, + confusion and + memory loss Physical Exam Physical Exam: General: well developed, obese female, no acute distress, comfortable Neck: supple, trachea midline, normal thyroid Lungs: clear to auscultation bilaterally, normal respiratory effort, no accessory muscle use, no distress Heart: regular S1 and S2, no murmur, peripheral pulses normal, capillary refill normal, no edema Abdomen: soft, NT, ND, + BS, no hepatomegaly, normal to percussion Extremities: normal in appearance, no cyanosis, no petechiae, strength is 5/5 bilaterally Neuro: awake, cooperative, generalized weakness, CN II-XII intact, sensation in extremities intact, normal speech Skin: warm, dry, no rash, normal turgor Psych: Awake, alert oriented x 3, euthymic affect Results & Data Results & Data ([facility]) Vital Signs (Past 12 Hours) Vital Signs Temp Pulse Pulse Resp BP BP Pulse Ox 02/23/21 12:08 65 109/70 02/23/21 12:04 36.5 C 65 18 109/70 94 02/23/21 08:14 36.7 C 57 L 20 119/75 96 02/23/21 05:42 63 134/82 02/23/21 05:24 56 L 138/89 02/23/21 03:14 36.6 C 65 20 154/80 H 94 Laboratory Results Laboratory Results - last 24 hr 02/22/21 21:12 POC Glucose 102 H Medications Administered Current Inpatient Medications Apixaban (Apixaban 5 Mg Tablet) 10 mg PO BID [facility] Stop: 02/25/21 09:01 Last Admin: 02/23/21 09:00 Dose: 10 mg Documented by: Atorvastatin Calcium (Atorvastatin 40 Mg Tab) 40 mg PO QAM [facility] Stop: 03/21/21 08:59 Last Admin: 02/23/21 09:01 Dose: 40 mg Documented by: Dextrose (Dextrose 50% 50 Ml Syringe) 25 - 50 ml IV UD PRN; Protocol PRN Reason: Hypoglycemia Protocol Stop: 03/16/21 23:44 Last Admin: 02/21/21 08:26 Dose: 50 ml Documented by: Famotidine (Famotidine 20 Mg Tab) 20 mg PO BID [facility] Stop: 03/24/21 20:59 Last Admin: 02/23/21 09:01 Dose: 20 mg Documented by: Glucagon (Glucagon For Inj 1 Mg Vial) 1 mg SQ UD PRN; Protocol PRN Reason: Hypoglycemia Protocol Stop: 03/16/21 23:44 Glucose (Glucose 40% Gel 15 Gm Tube) 15 - 30 gm PO UD PRN; Protocol PRN Reason: Hypoglycemia Protocol Stop: 03/16/21 23:44 Glucose (Glucose 10 Tabs/Tube) 4 - 8 tabs PO UD PRN; Protocol PRN Reason: Hypoglycemia Protocol Stop: 03/16/21 23:44 Hydralazine HCl (Hydralazine Hcl 20 Mg/Ml Vial) 10 mg IV Q6H PRN PRN Reason: Hypertension Stop: 03/18/21 10:24 Last Admin: 02/17/21 15:19 Dose: 10 mg Documented by: Hydralazine HCl (Hydralazine Hcl 20 Mg/Ml Vial) 10 mg IV Q8 PRN PRN Reason: Blood Pressure - High Stop: 03/23/21 17:49 Dexamethasone 6 mg/ Syringe 1.5 mls @ 1 mls/min IV DAILY [facility]; Protocol Stop: 02/23/21 16:00 Last Admin: 02/23/21 09:00 Dose: 1 mls/min Documented by: Parenteral Electrolytes (Normosol-R) 1,000 mls @ 80 mls/hr IV .[id number] [facility] Stop: 03/23/21 17:44 Last Admin: 02/23/21 09:05 Dose: 80 mls/hr Documented by: Metoprolol Tartrate (Metoprolol Tartrate 1 Mg/Ml Vial) 5 mg IV Q6 [facility] Stop: 03/23/21 17:59 Last Admin: 02/23/21 12:08 Dose: 5 mg Documented by: Metoprolol Tartrate (Metoprolol Tartrate 1 Mg/Ml Vial) 5 mg IV Q4 PRN PRN Reason: sbp> 185, dbp >95, HR >120 Stop: 03/23/21 17:49 Miconazole Nitrate (Miconazole Nitrate Powder 43 Gm) 1 appln EXT BID PRN PRN Reason: REDNESS Stop: 03/24/21 09:44 Last Admin: 02/23/21 09:10 Dose: 1 appln Documented by: Miscellaneous (Carbohydrates For Hypoglycemia ) 15 - 30 gm PO UD PRN PRN Reason: Hypoglycemia Treatment Stop: 03/16/21 23:44 Multivitamins/Minerals (Multi Vit W/Minerals Liquid 15 Ml Udp) 15 ml PO QAM [facility] Stop: 03/18/21 08:59 Last Admin: 02/23/21 09:01 Dose: 15 ml Documented by: PG Care Time/CCT Total # of Minutes Spent Total Time Spent with Patient: Total time spent is greater than 50% in coordination of care (as documented) at patient's floor/unit and/or counseling patient: Coding Level of Care Code 43523 Subseq Hosp Care Lvl 3 Diagnoses Acute CVA (cerebrovascular accident) I63.9 Pneumonia due to 2019 novel coronavirus U07.1; J12.82 Pulmonary embolism I26.99 Acute cor pulmonale presence: unspecified Chronicity: acute Pulmonary embolism type: unspecified Acute respiratory failure with hypoxia J96.01 Acute non-ST elevation myocardial infarction (NSTEMI) I21.4 Depression F32.A (1) Pulmonary embolism Acute cor pulmonale presence: unspecified Chronicity: acute Pulmonary embolism type: unspecified Qualified Code(s): I26.99 - Other pulmonary embolism without acute cor pulmonale
[2021-02-24] MEDS: METOPROLOL TARTRATE 1 MG/ML VIAL IV SCH (06:00)
[2021-02-24] MEDS: MULTI VIT W/MINERALS LIQUID 15 ML UDP PO SCH (08:15)
[2021-02-24] MEDS: APIXABAN 5 MG TABLET PO SCH ×2 (08:16→21:27)
[2021-02-24] MEDS: ATORVASTATIN 40 MG TAB PO SCH (08:17)
[2021-02-24] MEDS: FAMOTIDINE 20 MG TAB PO SCH ×2 (08:17→21:28)
--- NOTE | 2021-02-24 09:18 | Hospitalist Progress Note ---
Date of Service February 24, 2021 Assessment & Plan (1) Acute CVA (cerebrovascular accident): Plan: Biggest issue is that the pt has reduced alertness and does not want to eat, but this is improving CT head on admission showed a "2.4 cm acute versus subacute appearing infarct is noted within the right frontal periventricular distribution involving the adjacent basal ganglia and internal capsule." MRI brain: numerous bilateral emboli consistent with cardioembolic disease - CTA head and neck showed no stenoses. - TTE with bubble study on 02/16 showed significant R -> L inter-atrial shunt. - A1c of 6.3% this admission. more alert today, eating better, drinking better, stopped IV fluids continue on Eliquis 10mg BID x 7 days then 5mg BID will need rehab, would be good [facility] candidate with her stroke (2) Pneumonia due to 2019 novel coronavirus: Plan: First symptoms: ~01/27/2021 First tested: 02/14/2021 in our system Vaccinated: No Admission date: 02/14/2021 Admission O2 requirement: Intubated for airway protection, extubated now down to room air after being on nasal canula for a few days completed 10 days of dexamethasone, last day was 02/23/21 did not meet requirements for Remdesivir or Baricitinib completed course of Rocephin (3) Pulmonary embolism: Plan: CTA chest on 02/14 showed extensive bilateral pulmonary emboli with right heart strain. With acute cor pulmonale. 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 - TTE with preserved LV function and suspected secondary to pulmonary embolism and right heart strain - Troponin peaked at 7.3 on 02/14; now downtrending. - aspirin, beta-daisy, and statin (6) Depression: Plan: starting Remeron to help depression and appetite seems to be helping as she is eating/drinking more stop fluids Plan: medically stable for discharge, need to work on rehab placement Admission and Anticipated Discharge Date Admission Date: February 14, 2021 Subjective doing fine this morning, ate 60% of breakfast, breathing well on 2L still weak on right side, more so in right arm/hand she is alert, speaking clearly move to medical floor today if there is a bed, need to get her to rehab Review of Systems Review of Systems: All systems reviewed & are unremarkable except as noted in Subjective Constitutional: + fatigue and + weakness; no fever Respiratory: no cough and no dyspnea Cardiovascular: no chest pain, no palpitations and no edema Musculoskeletal: + muscle weakness (right hand and arm) Neurologic: + localized weakness (right hand) Physical Exam Physical Exam: General: well developed, obese female, no acute distress, comfortable Neck: supple, trachea midline, normal thyroid Lungs: clear to auscultation bilaterally, normal respiratory effort, no accessory muscle use, no distress Heart: regular S1 and S2, no murmur, peripheral pulses normal, capillary refill normal, no edema Abdomen: soft, NT, ND, + BS, no hepatomegaly, normal to percussion Extremities: normal in appearance, no cyanosis, no petechiae, strength is 5/5 left side, right leg, 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 Neuro: awake, cooperative, generalized weakness, CN II-XII intact, sensation in extremities intact, normal speech Skin: warm, dry, no rash, normal turgor Psych: Awake, alert oriented x 3, flat affect Results & Data Results & Data ([facility]) Vital Signs (Past 12 Hours) Vital Signs Temp Pulse Pulse Resp BP BP Pulse Ox 02/24/21 08:00 49 L 02/24/21 07:22 36.6 C 54 L 18 112/68 94 02/24/21 06:00 63 123/80 02/24/21 03:00 36.5 C 63 18 125/79 95 02/24/21 00:00 64 02/23/21 23:06 60 123/76 02/23/21 23:05 36.3 C L 60 16 123/76 92 Medications Administered Current Inpatient Medications Apixaban (Apixaban 5 Mg Tablet) 10 mg PO BID [facility] Stop: 02/25/21 09:01 Last Admin: 02/24/21 08:16 Dose: 10 mg Documented by: Atorvastatin Calcium (Atorvastatin 40 Mg Tab) 40 mg PO QAM [facility] Stop: 03/21/21 08:59 Last Admin: 02/24/21 08:17 Dose: 40 mg Documented by: Dextrose (Dextrose 50% 50 Ml Syringe) 25 - 50 ml IV UD PRN; Protocol PRN Reason: Hypoglycemia Protocol Stop: 03/16/21 23:44 Last Admin: 02/21/21 08:26 Dose: 50 ml Documented by: Famotidine (Famotidine 20 Mg Tab) 20 mg PO BID [facility] Stop: 03/24/21 20:59 Last Admin: 02/24/21 08:17 Dose: 20 mg Documented by: Glucagon (Glucagon For Inj 1 Mg Vial) 1 mg SQ UD PRN; Protocol PRN Reason: Hypoglycemia Protocol Stop: 03/16/21 23:44 Glucose (Glucose 40% Gel 15 Gm Tube) 15 - 30 gm PO UD PRN; Protocol PRN Reason: Hypoglycemia Protocol Stop: 03/16/21 23:44 Glucose (Glucose 10 Tabs/Tube) 4 - 8 tabs PO UD PRN; Protocol PRN Reason: Hypoglycemia Protocol Stop: 03/16/21 23:44 Hydralazine HCl (Hydralazine Hcl 20 Mg/Ml Vial) 10 mg IV Q6H PRN PRN Reason: Hypertension Stop: 03/18/21 10:24 Last Admin: 02/17/21 15:19 Dose: 10 mg Documented by: Hydralazine HCl (Hydralazine Hcl 20 Mg/Ml Vial) 10 mg IV Q8 PRN PRN Reason: Blood Pressure - High Stop: 03/23/21 17:49 Metoprolol Tartrate (Metoprolol Tartrate 25 Mg Tab) 12.5 mg PO BID [facility] Stop: 03/26/21 09:09 Miconazole Nitrate (Miconazole Nitrate Powder 43 Gm) 1 appln EXT BID PRN PRN Reason: REDNESS Stop: 03/24/21 09:44 Last Admin: 02/23/21 09:10 Dose: 1 appln Documented by: Miscellaneous (Carbohydrates For Hypoglycemia ) 15 - 30 gm PO UD PRN PRN Reason: Hypoglycemia Treatment Stop: 03/16/21 23:44 Multivitamins (Multivitamin Tab) 1 tab PO QAM [facility] Stop: 03/26/21 09:09 PG Care Time/CCT Total # of Minutes Spent Total Time Spent with Patient: Total time spent is greater than 50% in coordination of care (as documented) at patient's floor/unit and/or counseling patient: Coding Level of Care Code 23459 Subseq Hosp Care Lvl 3 Diagnoses Acute CVA (cerebrovascular accident) I63.9 Pneumonia due to 2019 novel coronavirus U07.1; J12.82 Pulmonary embolism I26.99 Acute cor pulmonale presence: unspecified Chronicity: acute Pulmonary embolism type: unspecified Acute respiratory failure with hypoxia J96.01 Acute non-ST elevation myocardial infarction (NSTEMI) I21.4 Depression F32.A (1) Pulmonary embolism Acute cor pulmonale presence: unspecified Chronicity: acute Pulmonary embolism type: unspecified Qualified Code(s): I26.99 - Other pulmonary embolism without acute cor pulmonale
[2021-02-24] MEDS: MULTIVITAMIN TAB PO SCH (10:09)
[2021-02-24] MEDS: METOPROLOL TARTRATE 25 MG TAB PO SCH ×2 (10:09→21:26)
[2021-02-25] MEDS: METOPROLOL TARTRATE 25 MG TAB PO SCH ×2 (08:46→19:31)
[2021-02-25] MEDS: MULTIVITAMIN TAB PO SCH (08:47)
[2021-02-25] MEDS: ATORVASTATIN 40 MG TAB PO SCH (08:47)
[2021-02-25] MEDS: FAMOTIDINE 20 MG TAB PO SCH ×2 (08:47→19:32)
[2021-02-25] MEDS: APIXABAN 5 MG TABLET PO SCH (08:47)
--- NOTE | 2021-02-25 15:13 | Hospitalist Progress Note ---
Date of Service February 25, 2021 Assessment & Plan (1) Acute CVA (cerebrovascular accident): Plan: Biggest issue is that the pt has reduced alertness and does not want to eat, but this is improving CT head on admission showed a "2.4 cm acute versus subacute appearing infarct is noted within the right frontal periventricular distribution involving the adjacent basal ganglia and internal capsule." MRI brain: numerous bilateral emboli consistent with cardioembolic disease - CTA head and neck showed no stenoses. - TTE with bubble study on 02/16 showed significant R -> L inter-atrial shunt. - A1c of 6.3% this admission. more alert past few days, eating better, drinking better continue on Eliquis 10mg BID x 7 days then 5mg BID will need rehab, would be good [facility] candidate with her stroke but need to figure out medical assistance issue (2) Pneumonia due to 2019 novel coronavirus: Plan: First symptoms: ~01/27/2021 First tested: 02/14/2021 in our system Vaccinated: No Admission date: 02/14/2021 Admission O2 requirement: Intubated for airway protection, extubated now down to room air for a few days completed 10 days of dexamethasone, last day was 02/23/21 did not meet requirements for Remdesivir or Baricitinib completed course of Rocephin (3) Pulmonary embolism: Plan: CTA chest on 02/14 showed extensive bilateral pulmonary emboli with right heart strain. With acute cor pulmonale. 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 - TTE with preserved LV function and suspected secondary to pulmonary embolism and right heart strain - Troponin peaked at 7.3 on 02/14; now downtrending. - aspirin, beta-daisy, and statin (6) Depression: Plan: starting Remeron to help depression and appetite seems to be helping as she is eating/drinking more stop fluids Plan: medically stable for discharge, need to work on rehab placement Admission and Anticipated Discharge Date Admission Date: February 14, 2021 Subjective patient doing well, ask why she is so sore and so weak explained she has been in a hospital bed for 10 days, need to get her to rehab still working on insurance answer for [facility] she is eating well, breathing comfortably on room air, no chest pain, no fever Review of Systems Review of Systems: All systems reviewed & are unremarkable except as noted in Subjective Musculoskeletal: + muscle weakness Physical Exam Physical Exam: General: well developed, obese female, no acute distress, comfortable Neck: supple, trachea midline, normal thyroid Lungs: clear to auscultation bilaterally, normal respiratory effort, no accessory muscle use, no distress Heart: regular S1 and S2, no murmur, peripheral pulses normal, capillary refill normal, no edema Abdomen: soft, NT, ND, + BS, no hepatomegaly, normal to percussion Extremities: normal in appearance, no cyanosis, no petechiae, strength is 5/5 left side, right leg, 4/5 right arm and right drop forger strength Neuro: awake, cooperative, generalized weakness, CN II-XII intact, sensation in extremities intact, normal speech Skin: warm, dry, no rash, normal turgor Psych: Awake, alert oriented x 3, flat affect Results & Data Results & Data ([facility]) Vital Signs (Past 12 Hours) Vital Signs Temp Pulse Resp BP Pulse Ox 02/25/21 07:00 36.8 C 79 20 111/68 93 Laboratory Results Laboratory Results - last 24 hr 02/24/21 02/25/21 02/25/21 20:18 07:38 11:10 POC Glucose 104 H 82 95 Medications Administered Current Inpatient Medications Atorvastatin Calcium (Atorvastatin 40 Mg Tab) 40 mg PO QAM [facility] Stop: 03/21/21 08:59 Last Admin: 02/25/21 08:47 Dose: 40 mg Documented by: Dextrose (Dextrose 50% 50 Ml Syringe) 25 - 50 ml IV UD PRN; Protocol PRN Reason: Hypoglycemia Protocol Stop: 03/16/21 23:44 Last Admin: 02/21/21 08:26 Dose: 50 ml Documented by: Famotidine (Famotidine 20 Mg Tab) 20 mg PO BID [facility] Stop: 03/24/21 20:59 Last Admin: 02/25/21 08:47 Dose: 20 mg Documented by: Glucagon (Glucagon For Inj 1 Mg Vial) 1 mg SQ UD PRN; Protocol PRN Reason: Hypoglycemia Protocol Stop: 03/16/21 23:44 Glucose (Glucose 40% Gel 15 Gm Tube) 15 - 30 gm PO UD PRN; Protocol PRN Reason: Hypoglycemia Protocol Stop: 03/16/21 23:44 Glucose (Glucose 10 Tabs/Tube) 4 - 8 tabs PO UD PRN; Protocol PRN Reason: Hypoglycemia Protocol Stop: 03/16/21 23:44 Hydralazine HCl (Hydralazine Hcl 20 Mg/Ml Vial) 10 mg IV Q6H PRN PRN Reason: Hypertension Stop: 03/18/21 10:24 Last Admin: 02/17/21 15:19 Dose: 10 mg Documented by: Hydralazine HCl (Hydralazine Hcl 20 Mg/Ml Vial) 10 mg IV Q8 PRN PRN Reason: Blood Pressure - High Stop: 03/23/21 17:49 Metoprolol Tartrate (Metoprolol Tartrate 25 Mg Tab) 12.5 mg PO BID [facility] Stop: 03/26/21 09:09 Last Admin: 02/25/21 08:46 Dose: 12.5 mg Documented by: Miconazole Nitrate (Miconazole Nitrate Powder 43 Gm) 1 appln EXT BID PRN PRN Reason: REDNESS Stop: 03/24/21 09:44 Last Admin: 02/23/21 09:10 Dose: 1 appln Documented by: Miscellaneous (Carbohydrates For Hypoglycemia ) 15 - 30 gm PO UD PRN PRN Reason: Hypoglycemia Treatment Stop: 03/16/21 23:44 Multivitamins (Multivitamin Tab) 1 tab PO QAM [facility] Stop: 03/26/21 09:09 Last Admin: 02/25/21 08:47 Dose: 1 tab Documented by: PG Care Time/CCT Total # of Minutes Spent Total Time Spent with Patient: Total time spent is greater than 50% in coordination of care (as documented) at patient's floor/unit and/or counseling patient: Coding Level of Care Code 98750 Subseq Hosp Care Lvl 2 Diagnoses Acute CVA (cerebrovascular accident) I63.9 Pneumonia due to 2019 novel coronavirus U07.1; J12.82 Pulmonary embolism I26.99 Acute cor pulmonale presence: unspecified Chronicity: acute Pulmonary embolism type: unspecified Acute respiratory failure with hypoxia J96.01 Acute non-ST elevation myocardial infarction (NSTEMI) I21.4 Depression F32.A (1) Pulmonary embolism Acute cor pulmonale presence: unspecified Chronicity: acute Pulmonary embolism type: unspecified Qualified Code(s): I26.99 - Other pulmonary embolism without acute cor pulmonale
[2021-02-26] MEDS: METOPROLOL TARTRATE 25 MG TAB PO SCH (08:14)
[2021-02-26] MEDS: ATORVASTATIN 40 MG TAB PO SCH (08:15)
[2021-02-26] MEDS: MULTIVITAMIN TAB PO SCH (08:15)
[2021-02-26] MEDS: FAMOTIDINE 20 MG TAB PO SCH (08:25)
[2021-02-26] MEDS ORDERED: APIXABAN 5 MG TABLET PO SCH (10:00)
--- NOTE | 2021-02-26 10:54 | Discharge Summary ---
Date of Service February 26, 2021 Admission HPI Per Admitting Provider Edda Pulido is a 65 year old female who presents to the ER with unresponsiveness and hypoxia. Unable to obtain any history from the patient as she is intubated and mechanically ventilated. History taken from EMS notes, ER notes, her son (Chavez) and daughter in-law (Kristan) in the ER. She lives alone, has not seen a doctor in 20 years, has no known medical problems and on no regular medications. Baseline: walks without aids, manages her own finances, meals etc... Runs a [employer]. She had COVID-like symptoms starting approximately 3 weeks ago but was never tested and she isolated herself instead. She was in contact with her son (Chavez) by phone and reportedly improving over the last few days and denied feeling any more short of breath than usual. She was seen by her older son (Elio) yesterday and reportedly she was doing ok then; although unknown what time. 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 Therefore a co- worker checked on her this morning and she was in bed, unable to get up and very confused around 8:30am. EMS were called and she was noted to be hypoxic with O2 sats 74%. On arrival to the ER O2 sats were 77%, she was tachypneic and very confused. She was intubated by the ER physician prior to being seen by myself. In the ER CT for PE concerning for bilateral pulmonary emboli with right heart strain. ST elevation in right precordial leads and III consistent with known pulmonary embolism, less likely inferior MA. 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 CT head was concerning for 2.4cm acute vs. subacute stroke in right frontal periventricular region with age-indeterminate infarct in mid to inferior left cerebellar hemisphere. She was started on IV heparin standard and bolus. Her case was discussed by ER physician to ICU attending. She was referred to medicine for admission and ongoing management of COVID-19 pneumonia, CVA and bilateral pulmonary emboli. Principal Diagnosis Acute embolic strokes, bilateral COVID 19 pneumonia Acute hypoxic respiratory failure Bilateral PE DVT Deconditioning Discharge Exam General: well developed, obese female, no acute distress, comfortable Neck: supple, trachea midline, normal thyroid Lungs: clear to auscultation bilaterally, normal respiratory effort, no accessory muscle use, no distress Heart: regular S1 and S2, no murmur, peripheral pulses normal, capillary refill normal, no edema Abdomen: soft, NT, ND, + BS, no hepatomegaly, normal to percussion Extremities: normal in appearance, no cyanosis, no petechiae, strength is 5/5 left side, right leg, 4/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 Neuro: awake, cooperative, generalized weakness, CN II-XII intact, sensation in extremities intact, normal speech Skin: warm, dry, no rash, normal turgor Psych: Awake, alert oriented x 3, flat affect Discharge Data Allergies Allergy/AdvReac Type Severity Reaction Status Date / Time No Known Allergies Allergy Verified 02/14/21 12:55 Consultations 02/14/21 12:43 ED Decision to Admit Stat 02/14/21 14:00 Consult Block Hacker Stat 02/17/21 07:56 Consult Neurology Routine Ordered Studies 02/14/21 11:40 CT abd pelvis IV con only Stat CT angio chest PE protocol Stat CT head/brain wo con Stat 02/15/21 12:30 CT head/brain wo con DAILY 02/15/21 12:53 US carotid doppler BI Routine 02/18/21 09:58 CT angio head w con Routine CT angio neck with con Routine 02/19/21 09:58 MR brain wo con Routine 02/21/21 12:08 CT head/brain wo con Routine Hospital Course (1) Acute CVA (cerebrovascular accident): CT head on admission showed a "2.4 cm acute versus subacute appearing infarct is noted within the right frontal periventricular distribution involving the adjacent basal ganglia and internal capsule." MRI brain: numerous bilateral emboli consistent with cardioembolic disease - CTA head and neck showed no stenoses. - TTE with bubble study on 02/16 showed significant R -> L inter-atrial shunt. - A1c of 6.3% this admission. more alert past few days, eating better, drinking better continue on Eliquis 10mg BID x 7 days then 5mg BID indefinitely will need rehab, would be good [facility] candidate (2) Pneumonia due to 2019 novel coronavirus: First symptoms: ~01/27/2021 First tested: 02/14/2021 in our system Vaccinated: No Admission date: 02/14/2021 Admission O2 requirement: Intubated for airway protection, extubated now down to room air for 4 days completed 10 days of dexamethasone, last day was 02/23/21 did not meet requirements for Remdesivir or Baricitinib completed course of Rocephin (3) Pulmonary embolism: CTA chest on 02/14 showed extensive bilateral pulmonary emboli with right heart strain. With acute cor pulmonale. 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 - TTE with preserved LV function and suspected secondary to pulmonary embolism and right heart strain - Troponin peaked at 7.3 on 02/14 and then trended down - aspirin, beta-daisy, and statin (6) Depression: mood is improving as her condition improves next step is to get stronger medically stable for discharge, discharge to [facility] Total Time Total Time Spent Total Time Spent (In Minutes): 32 minutes Total Time Includes: Examination of the Patient, Discharge Planning and Medication Reconciliation Discharge Plan Discharge Items Patient Disposition: Transfer Inpatient Rehab Fac Reason For Visit: ACUTE HYPOXIC RESPIRATORY FAILURE, COVID-19, BILAT Discharge Diagnosis: Bilateral, cardioembolic strokes, right side weakness COVID 19 pneumonia, resolved Bilateral pulmonary emboli and DVT Obesity Deconditioning Condition on Discharge: Fair Goals: need to improve strength and mobility, regain independence continue with Eliquis for treatment of both stroke and PE Activity: Resume your previous activity Weightbearing: Full weightbearing Non-emergency contact: Primary Care Provider Call non-emergency contact if: you have any medication questions Follow-up/Referrals: PCP,NO [Primary Care Provider] - Diet: Regular Addtl Attending Provider Instructions: See discharge summary Risk Factors for Stroke: You can reduce your chances of stroke by working with your medical provider to adopt a healthy lifestyle. Some specific ways to lower your chance of stroke are: * If you are a smoker, now is the time to stop smoking cigarettes * If you are diabetic, improve the control of your blood sugars * Avoid excessive amounts of alcohol * Control high blood pressure * Lose weight if you are overweight * Be sure to lead an active lifestyle * Eat a healthy diet low in salt, cholesterol and fat You should know about other risk factors for stroke that you are unable to control. These include: * Age 55 years or older * Male gender * Certain racial groups: , or / * Family History of Stroke, Mini stroke or Heart Attack * Sickle Cell Disease Follow Up: It is important for you to keep your follow up appointments with your medical provider. Who to Call and When: Medical Emergencies: Call 911 immediately if you experience any of the following warning signs and symptoms of Stroke: * Sudden numbness or weakness of the face, arm or leg, especially on one side of the body * Sudden confusion, trouble speaking or understanding * Sudden trouble seeing in one or both eyes * Sudden trouble walking, dizziness, loss of balance or coordination * Sudden severe headache with no cause Do not delay calling 911 if you experience any warning signs or symptoms of a stroke. Delay in seeking medical attention may affect what treatments can be given to you. . Pending Studies at Discharge: No Stand-Alone Forms: [facility] Skilled Items Patient informed of condition?: Yes DNR: No Discharge Level of Care: Acute rehab Communicable Disease: No Discharge Prognosis: Stable Lines: None Urinary Catheter: No Medications and DC Order Prescriptions: New atorvastatin 40 mg Tablet 40 mg PO QAM 30 Days Qty: 30 RF: 3 Eliquis 5 mg Tablet 5 mg PO BID 30 Days Qty: 60 RF: 3 metoprolol tartrate 25 mg Tablet 12.5 mg PO BID 30 Days Qty: 30 RF: 3 No Action No Known Home Medications RF: 0 Discharge Orders: Discharge Order (Routine); Ordered 02/26/21 Ordered By: Kit Holloway/Other Patient Handouts: Prediabetes, 5 Steps for Eating Healthier Admission Data Admit Date/Time: 02/14/21 14:05 Attending Provider: Kit Martinez Admit Provider: Onesimo Luna Primary Care Provider: PCP,NO Other Providers: Harsha Cope ; Onesimo Luna ; Tyler Cabrera ; Ernie Hernández ; [facility] Coding Level of Care Code D/C DAY MANAGEMENT >30 MINS Diagnoses Acute CVA (cerebrovascular accident) I63.9 Pneumonia due to 2019 novel coronavirus U07.1; J12.82 Pulmonary embolism I26.99 Acute cor pulmonale presence: unspecified Chronicity: acute Pulmonary embolism type: unspecified Acute respiratory failure with hypoxia J96.01 Acute non-ST elevation myocardial infarction (NSTEMI) I21.4 Depression F32.A
== END 2021-02-26 13:39 | DRG 208 ==
LOC: ED 10:41 → SUATTDRO 14:05 → 1E 14:05 → 2E 02-18 14:05 → 2W 02-24 13:46